=== PATIENT | female | born 1985 | race Caucasian/White ===

== ENCOUNTER 2017-12-31 08:54 | Emergency (ER) | payer MEDICAID ==
[~2017-12-31] VITALS: Ht 165.1 cm; Wt 71.2 kg
[2017-12-31 08:58] VITALS: BP 108/66
[2017-12-31] MEDS ORDERED: CYCL-1 PO (10:12)
== END 2017-12-31 10:45 | disposition home or self-care (01) ==
LOC: ER 08:55
DX: R07.89 Other chest pain (principal); J06.9 Acute upper respiratory infection, unspecified; F17.200 Nicotine dependence, unspecified, uncomplicated
CPT/HCPCS: 71046; 93005; 99284

== ENCOUNTER 2019-11-27 13:09 | Emergency (ER) | payer MEDICAID ==
[~2019-11-27] VITALS: Ht 165.1 cm; Wt 74.5 kg
[~2019-11-27 13:09] MED LIST: CYCL-1 PO
[2019-11-27 13:18] VITALS: BP 120/80
[2019-11-27 14:49] LABS: CLARITY,URINE TURBID (Clear); COLOR,URINE STRAW (Yellow); GLUCOSE, URINE NEGATIVE (Neg); KETONES,URINE NEGATIVE (Neg); LEUKOCYTE ESTERASE ,URINE TRACE (Neg); NITRITES, URINE NEGATIVE (Neg); OCCULT BLOOD,URINE NEGATIVE (Neg); PROTEIN,URINE NEGATIVE (Neg); UROBILINOGEN,URINE 0.2 E.U/dL (0.2-1.0)
[2019-11-27 14:51] LABS: UA COLLECTION TYPE CLN CATCH MIDSTREAM
[2019-11-27 14:55] LABS: BASOPHILS # (AUTO) 0.1 X10'3 (0-0.2); BASOPHILS % (AUTO) 0.8 % (0-1); EOSINOPHILS # (AUTO) 0.1 X10'3 (0-0.9); EOSINOPHILS % (AUTO) 1.4 % (0-6); HEMATOCRIT 40.3 % (35.0-45.0); HEMOGLOBIN 13.5 g/dl (12.0-16.0); LYMPHOCYTES # (AUTO) 2.4 X10'3 (1.1-4.8); LYMPHOCYTES % (AUTO) 28.2 % (21-51); MEAN CORPUSCULAR HEMOGLOBIN 29.1 PG (27.0-31.0); MEAN CORPUSCULAR HGB CONC 33.5 g/dL (33.0-36.5); MEAN CORPUSCULAR VOLUME 86.9 FL (78-98); MEAN PLATELET VOLUME 9.6 FL (7.4-10.4); MONOCYTES # (AUTO) 0.6 X10'3 (0-0.9); MONOCYTES % (AUTO) 6.8 % (2-12); NEUTROPHILS # (AUTO) 5.2 X10'3 (1.8-7.7); NEUTROPHILS % (AUTO) 62.8 % (42-75); PLATELET COUNT 273 X10'3 (140-440); RED BLOOD COUNT 4.64 X10'6 (4.20-5.60); RED CELL DISTRIBUTION WIDTH 13.5 % (11.5-14.5); WHITE BLOOD COUNT 8.3 X10'3 (4.5-11.0)
[2019-11-27 14:58] LABS: AMORPHOUS PHOSPHATES 4+; SQUAMOUS EPITHELIAL CELL,UR MANY /LPF (FEW)
[2019-11-27 14:59] LABS: MUCUS STRANDS MANY /LPF (Neg)
[2019-11-27 15:02] LABS: BACTERIA,URINE 1+ /HPF (Neg); RBC,URINE 0-2 /HPF (0-2); WBC,URINE 0-4 /HPF (0-4)
[2019-11-27 15:05] LABS: ALANINE AMINOTRANSFERASE 15 U/L (12-78); ALBUMIN 3.7 G/DL (3.4-5.0); ALBUMIN/GLOBULIN RATIO 1.2 (1.1-1.5); ALKALINE PHOSPHATASE 43 IU/L (46-116); ANION GAP 7 (8-16); ASPARTATE AMINO TRANSFERASE 13 U/L (10-37); BILIRUBIN,TOTAL 0.3 MG/DL (0.1-1.0); BLOOD UREA NITROGEN 9 MG/DL (7-18); CALCIUM 9.2 MG/DL (8.5-10.1); CHLORIDE 108 MMOL/L (99-107); CREATININE 0.75 MG/DL (0.40-0.90); GLUCOSE 92 MG/DL (70-104); POTASSIUM 3.8 MMOL/L (3.5-5.1); SODIUM 144 MMOL/L (135-145); TOTAL CARBON DIOXIDE 28.6 MMOL/L (24-32); TOTAL PROTEIN 6.7 G/DL (6.4-8.2); eGFR 88 ML/MIN
== END 2019-11-27 17:13 | disposition home or self-care (01) ==
LOC: ER 13:09
DX: M54.16 Radiculopathy, lumbar region (principal); M54.40 Lumbago with sciatica, unspecified side; F17.200 Nicotine dependence, unspecified, uncomplicated; F12.90 Cannabis use, unspecified, uncomplicated; Z79.899 Other long term (current) drug therapy
CPT/HCPCS: 36415; 72148; 80053; 81001; 85025; 99284

== ENCOUNTER 2025-05-24 10:47 | Inpatient (IN) | payer BC ==
[~2025-05-24] VITALS: Ht 165.1 cm; Wt 79.5 kg
[2025-05-24] VITALS (19 sets, daily range): BP systolic 93–120; BP diastolic 54–82; PULSE 69–118; RESP 11–21; O2SAT 95–98
[~2025-05-24 10:47] MED LIST changes: +ASPI-1071 PO; +ATOR20TA66 PO; -CYCL-1 PO; +EMPA10TA PO; +FURO-150 PO; +METO-395 PO; +MULT-1085 PO; +POTA-206 PO; +SACU1TAB PO
--- NOTE | 2025-05-24 11:16 | ELECTROCARDIOGRAPH REPORT ---
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
[2025-05-24 11:31] LABS: APTT 22 SECONDS (22-32); INR 1.1 INR
--- NOTE | 2025-05-24 11:31 | RADIOLOGY REPORT ---
EXAM: CT CT STROKE ALERT INDICATION: Stroke Alert TECHNIQUE: CT of the head without intravenous contrast. Coronal and sagittal reformatted images are s ubmitted. Radiation Dose : 1. Head: CT Dose: CTDI volume is 57.5 mGy. Dose-length product is 1024.4 mGy*cm The dose indicators for CT are the volume Computed Tomography (CT) Dose Index (CTDIvol) and the Dose Length Product (DLP), and are measured in units of mGy and mGy-cm, respectively. These indicators are not patient dose, but values generated from the CT scanner acquisition factors. The report includes radiation exposure data for exposures received during this examination. All CT scans at this medical facility are performed using dose modulation techniques as appropriate to a performed exam including the following: Automated exposure control was utilized; adjustment of the MA and/or KV according to patient size; and use of iterative reconstruction technique. COMPARISON: None FINDINGS: There is no evidence of acute intracranial hemorrhage, extra-axial collection, mass effect, midline s hift, herniation or hydrocephalus. The ventricles, sulci and cisterns are age appropriate. The toledo-white differentiation is intact. The visualized paranasal sinuses and mastoid air cells are clear. No depressed calvarial fracture. The surrounding soft tissues are unremarkable. IMPRESSION: 1. No acute intracranial abnormality.
[2025-05-24 11:32] LABS: MEAN PLATELET VOLUME 10.5 FL (7.4-10.4); RED CELL DISTRIBUTION WIDTH 13.8 % (11.5-14.5)
--- NOTE | 2025-05-24 11:38 | RADIOLOGY REPORT ---
EXAM: DI CHEST,SINGLE VIEW HISTORY: Stroke Alert COMPARISON: DI CHEST,SINGLE VIEW on DOS: 05/21/25 TECHNIQUE: Portable AP view of the chest was performed. FINDINGS: No pneumothorax, consolidative infiltrates, or pulmonary edema. The heart is enlarged. IMPRESSION: Cardiomegaly without evidence of acute intrathoracic process.
[2025-05-24 11:50] LABS: CREATININE 1.11 MG/DL (0.40-0.90); TOTAL CARBON DIOXIDE 24.0 MMOL/L (24-32); eCRCL 61 ML/MIN; eGFR 54 ML/MIN
[2025-05-24 11:51] LABS: LEUKOCYTE ESTERASE ,URINE TRACE (Neg); NITRITES, URINE NEGATIVE (Neg); OCCULT BLOOD,URINE NEGATIVE (Neg)
[2025-05-24 11:53] LABS: UA COLLECTION TYPE CLN CATCH MIDSTREAM
--- NOTE | 2025-05-24 11:59 | RADIOLOGY REPORT ---
CT CTA NECK/HEAD INDICATION: Stroke Alert EXAM DATE: 05/24/2025 11:03 AM COMPARISON: None RADIATION DOSE: CTDIvol: 14 mGy, DLP: 565 mGy*cm PROCEDURE: CT angiogram images were obtained of the head and neck. Coronal and sagittal reformatted i mages were created as well as 3D and/or MIP reconstructions. All CT scans at this medical facility are performed using dose modulation techniques as appropriate t o a performed exam including the following: Automated exposure control was utilized; adjustment of th e MA and/or KV according to patient size; and use of iterative reconstruction technique. FINDINGS: Head: Please see CT head from same day for further details. On the CT angiographic images, the internal carotid arteries are normal in caliber from the skull bas e to their bifurcations. The anterior and middle cerebral arteries and their branches appear normal. The anterior communicating artery appears normal. The bilateral posterior communicating arteries are normal. The left vertebral artery is dominant. The vertebral, basilar, superior cerebellar, and poste rior cerebral arteries are normal in caliber. No aneurysm, arteriovenous malformation, or stenosis is visible. Neck: The common carotid, internal carotid, external carotid, and vertebral arteries are normal in caliber. The left vertebral artery is dominant. The visualized intracranial arteries are normal. There is no evidence of contrast extravasation, filling defects, stenosis, or dissection. The pharynx and airway are normal. The thyroid, submandibular, and parotid glands appear normal. No l ymphadenopathy is seen. The visualized intracranial structures are unremarkable. IMPRESSION: No acute abnormal CT angiographic findings of the head and neck without large vessel occlusion or dis section.
--- NOTE | 2025-05-24 12:00 | Physician Documentation ---
History of Present Illness General Chief Complaint: Stroke Alert Stated Complaint: SLURRED SPEACH Time Seen by MD: 10:55 Primary Medical Doctor: Nilsa Hurt Mode of Arrival: Ambulatory History of Present Illness Initial Comments The patient is a 39-year-old female who began having trouble finding words about a 1/2 hour before she got here. She was discharged from this hospital yesterday after a cardiac workup and was started on several new medications (no blood thinners other than aspirin). She has no history of stroke. Medication Reconciliation Allergies: Coded Allergies: No Known Allergies (Unverified , 05/21/25) Scheduled Aspirin (Ecotrin*), 1 TAB PO DAILY Atorvastatin Calcium (Atorvastatin Calcium), 40 MG PO HS Empagliflozin (Jardiance), 10 MG PO DAILY Furosemide* (Lasix*), 1 TAB PO DAILY Metoprolol Succinate (Metoprolol Succinate), 25 MG PO DAILY Multivitamin (Multi Vitamin Daily), 1 TAB PO DAILY, (Reported) Potassium Chloride (K-Dur), 1 TAB PO DAILY Sacubitril/Valsartan (Entresto 24 mg-26 mg Tablet), 1 TABLET PO BID Discontinued Medications Cider Vinegar (Apple Cider Vinegar), 2 TAB PO DAILY, (Reported) Discontinued Reason: patient no longer taking Fluoxetine Hcl (Fluoxetine Hcl), 1 CAP PO DAILY, (Reported) Discontinued Reason: patient no longer taking Past Medical History Past Medical History: No Pertinent History Drug Use: marijuana Review of Systems ROS Constitutional: Denies chills, fatigue, fever, weight gain or weight loss. HEENT: Denies hearing loss, sinus pressure or visual changes. Respiratory: Denies cough, shortness of breath or wheezing. Cardiovascular: Denies chest pain, pain while walking (claudication), edema or palpitations. Gastrointestinal: Denies abdominal pain, blood in stool, constipation, diarrhea, heartburn, loss of appetite, nausea or vomiting. Genitourinary: Denies painful urination (dysuria), excessive amount of urine (polyuria) or urinary frequency. Metabolic/Endocrine: Denies cold intolerance, heat intolerance, excessive thirst (polydipsia) or excessive hunger (polyphagia). Neurological: Difficulty finding words and completing sentences. Some facial numbness but no droop. Psychiatric: Denies anxiety or depression. Integumentary: Denies breast discharge, breast lump, hives, mole change(s), rash or skin lesion. Musculoskeletal: Denies back pain, joint pain, joint swelling or neck pain. Hematologic: Denies easily bleeding, easily bruises, lymphedema or issues with blood clots. Immunologic: Denies food allergies or seasonal allergies. Physical Exam Physical Exam Vital Signs: Temperature: 98.5, Source: Oral, Heart Rate: 125, Respiratory Rate: 18, BP: 127/74, Pulse Oximetry: 97, Weight: 79.500 Oxygen Flow Rate: 0 Physical Exam Physical Exam Vitals and nursing note reviewed. Constitutional: General: Patient is awake, alert, oriented x 4 in no acute distress and well appearing. Speech is clear and lucid. Appearance: Normal appearance. Patient is not ill-appearing, toxic-appearing or diaphoretic. HENT: Head: Normocephalic and atraumatic. Mouth/Throat: Mouth: Mucous membranes are moist. Pharynx: Oropharynx is clear. Eyes: General: No scleral icterus. Extraocular Movements: Extraocular movements intact. Pupils: Pupils are equal, round, and reactive to light. Neck: Supple, no Kernig or Brudzinski sign. Cardiovascular: Rate and Rhythm: Normal rate and regular rhythm. Heart sounds: No murmur heard. Pulmonary: Effort: No respiratory distress. Breath sounds: No wheezing, rhonchi or rales. Abdominal: General: There is no distension. Palpations: There is no fluid wave, hepatomegaly or mass. Tenderness: There is no abdominal tenderness. There is no guarding. Musculoskeletal: General: No swelling or deformity. Skin: Coloration: Skin is not jaundiced. Findings: No erythema or rash. Neurological: Mental Status: Patient is alert. GCS 15. Patient having difficulty finding words (expressive aphasia). There maybe some weakness of the right leg. Progress Results/Orders Results/Orders Orders - FRANDY MURPHY MD Monitor (05/24/25 10:53) 2 Large Bore Ivs (05/24/25 10:53) Chest,Single View (05/24/25 11:23) Accucheck (05/24/25 10:53) Ct Stroke Alert (05/24/25 10:53) [place] Prov.Neuro Consult (05/24/25 10:53) Cta Neck/Head (05/24/25 10:53) Cult Urine + [place] Ct (05/24/25 12:20) Completed Orders - FRANDY MURPHY MD Cbc/Diff (05/24/25 10:53) Electrocardiogram (05/24/25 10:53) Chest,Single View (05/24/25 11:23) Ct Stroke Alert (05/24/25 10:53) PTT (05/24/25 10:53) Pt Inr (05/24/25 10:53) Cta Neck/Head (05/24/25 10:53) Iohexol 350mg/Ml 100ml (Omnipaque 350mg/ (05/24/25 10:59) BMP (05/24/25 11:29) Ua W/Microscopic, Cult If Ind (05/24/25 11:23) Tenecteplase-Tnkase Inj (Tnkase Inj) (05/24/25 12:00) Vital Signs 05/24/25 05/24/25 05/24/25 05/24/25 10:49 11:00 11:00 11:15 Temp 98.2 Pulse 131 120 120 125 Resp 16 16 16 18 B/P (MAP) 110/88 133/72 (92) 133/72 116/86 (96) Pulse Ox 95 98 98 98 O2 Flow Rate 0 0 0 05/24/25 05/24/25 05/24/25 05/24/25 11:16 11:30 11:38 11:45 Pulse 125 122 125 128 Resp 18 16 18 18 B/P (MAP) 116/86 127/74 (91) 127/74 133/72 (92) Pulse Ox 96 96 97 97 O2 Flow Rate 0 0 05/24/25 05/24/25 05/24/25 05/24/25 12:00 12:00 12:15 12:30 Pulse 124 112 110 105 Resp 18 16 16 16 B/P (MAP) 119/86 (97) 119/86 99/62 (74) 98/74 (82) Pulse Ox 96 97 98 96 O2 Flow Rate 0 0 0 Laboratory Tests Test 05/24/25 11:07 05/24/25 11:17 05/24/25 11:18 05/24/25 11:23 Prothrombin Time 11.4 INR International Normalized Ratio 1.1 Activated Partial Thromboplast Time 22 Coagulation Comments Chemistry Comments Glucometer 154 H White Blood Count 13.1 H Red Blood Count 5.43 Hemoglobin 15.4 Hematocrit 45.3 H Mean Corpuscular Volume 83.5 Mean Corpuscular Hemoglobin 28.5 Mean Corpuscular Hemoglobin Concent 34.1 Red Cell Distribution Width 13.8 Platelet Count 264 Mean Platelet Volume 10.5 H Neutrophils (%) (Auto) 73.1 Lymphocytes (%) (Auto) 18.3 L Monocytes (%) (Auto) 7.4 Eosinophils (%) (Auto) 0.8 Basophils (%) (Auto) 0.4 Neutrophils # (Auto) 9.6 H Lymphocytes # (Auto) 2.4 Monocytes # (Auto) 1.0 H Eosinophils # (Auto) 0.1 Basophils # (Auto) 0.1 CBC Comment Sodium Level 133 L Potassium Level 3.0 *L Chloride Level 98 L Carbon Dioxide Level 24.0 Anion Gap 11 Blood Urea Nitrogen 28 H Creatinine 1.11 H Estimated GFR/1.73 m2 54 BUN/Creatinine Ratio 25.2 H Glucose Level 145 H Calcium Level 8.7 Albumin 4.0 Urine Specimen Description Cln catch midstream Urine Color Straw Urine Clarity Slightly cloudy Urine pH 6.0 Urine Specific [place] <=1.005 Urine Protein Negative Urine Glucose (UA) >=1000 H Urine Ketones Negative Urine Occult Blood Negative Urine Nitrite Negative Urine Bilirubin Negative Urine Urobilinogen 0.2 Urine Leukocyte Esterase Trace H Urine RBC 3-10 Urine WBC 0-4 Urine Squamous Epithelial Cells Moderate Urine Renal Cells Few Urine Bacteria Few Urine Mucus Few Urine Culture Indicated Indicated Volume Urine Centrifuged 10 ml Urine Comment Microbiology Date/Time Source Procedure Growth Status 05/24/25 12:20 Urine Clean Catch Midstream Urine Culture - Preliminary Culture received. Resulted Medical Decision Making Findings Our tele stroke doctor phoned me and recommended thrombolytic therapy. She discussed this option with the patient. When I went in and talked with the patient she agreed to treatment with thrombolytics (TNK). 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 I provided critical care services which included medication orders, frequent re-evaluations, response to treatment, renewing test results, and discussing case with various consultants. Unless specifically stated all procedures, tests, and medications were performed/interpreted under the direct supervision of the emergency department physician. Signature Scribe Signature: . Attestation: FRANDY MCCOY MD May 24, 2025 12:00
[2025-05-24] MEDS: tenecteplase 50mg kit IV ONE (12:02)
[2025-05-24 12:08] LABS: MUCUS STRANDS FEW /LPF (Neg); SQUAMOUS EPITHELIAL CELL,UR MODERATE /LPF (FEW)
[2025-05-24 12:12] LABS: RENAL CELLS, URINE FEW /HPF
[2025-05-24] MEDS ORDERED: ondansetron/PF 4mg/2ml inj IV PRN (12:45)
[2025-05-24] MEDS ORDERED: morphine 4 MG/ML inj SYRINge IV PRN (12:45)
[2025-05-24] MEDS ORDERED: magnesium hydroxide 30ml (MOM) UD suspension PO PRN (12:45)
[2025-05-24] MEDS: normal saline 1000ml 1,000 ML IV SCH (12:54)
--- NOTE | 2025-05-24 13:11 | [facility] CONSULT REPORT ---
[facility] Procedure Note [facility] Procedure Note Consult [facility] Note # Demographics Consult Type: Acute Stroke Level 1 (0-4.5 hrs) Patient Location: Emergency Room First Name: Jordyn Last Name: Jason Date of : 1985 Age: 39 Gender: Female Facility: [facility] Time of Initial Page (): 05/24/2025 11:15 First Contact with Site (): 05/24/2025 11:17 # HPI History: 39y F who was discharged from the facility yesterday after being admitted and found to have low EF no presenting with trouble getting her words out and on my exam had started having R sided weakness Last Known Normal: 1030 Possible Thrombolytic candidate: - no stroke in last 3 months - no known blood disorders - not on warfarin or NOACs - no recent major surgery - no known active major internal bleeding - no intracranial hemorrhage history # Scores Time of exam and NIHSS (): 05/24/2025 11:31 Level of Consciousness 1a: [0] = Alert; keenly responsive LOC Questions 1b: [0] = Answers both questions correctly LOC Commands 1c: [0] = Performs both tasks correctly Best Gaze 2: [0] = Normal Visual 3: [0] = No visual loss Facial Palsy 4: [0] = Normal symmetrical movements Motor Arm Left 5a: [0] = No drift Motor Arm Right 5b: [1] = Drift Motor Leg Left 6a: [0] = No drift Motor Leg Right 6b: [2] = Some effort against gravity Limb Ataxia 7: [0] = Absent Sensory 8: [0] = Normal Best Language 9: [1] = Tbin-sh-briemnxr aphasia Dysarthria 10: [1] = Gxna-ny-gaeziivj dysarthria Extinction and Inattention 11: [0] = No abnormality NIHSS Total: 5 # Exam Vitals: vital signs reviewed # Data Time Head CT personally read by me (): 05/24/2025 11:[address]: - no bleed Time CTA personally reviewed by me (): 05/24/2025 11:32 CTA Head: no large vessel occlusion CTA Neck: patent vessels # Assessment Impression: - Ischemic Stroke (Acute) # Plan Thrombolytic/Intervention: IV Thrombolysis Thrombolytic Dosing: IV tenecteplase 0.25 mg/kg, max dose 25 mg; single bolus IVP over 5 seconds Intraarterial Exclusion: - no large vessel occlusion (LVO) - clinical exam not consistent with presence of large vessel occlusion (LVO), can reconsider if LVO found on vascular imaging Time IV Thrombolytic Recommended ([place] Time): 05/24/2025 11:40 Modified Davie Scale (mRS) pre-stroke: [1] = No significant disability despite symptoms; able to carry out all usual duties and activities. Blood Pressure Management: - nicardipine - labetalol Labs: - hemoglobin A1c - lipid panel - TSH Imaging: (urgency: routine): - MRI Brain without contrast Diagnostic Test: - echo with bubble study Therapy/Evaluation: - NPO until swallow evaluation - PT/OT evaluation - speech/swallow consultation Medication: - start statin with goal of LDL < 70 DVT Prophylaxis: - SCD Thrombolytic Administration Recommendations: - I reviewed the risks/benefits/alternatives of IV thrombolytic therapy with the patient. They understand there is potential of life threatening hemorrhage from IV thrombolysis. I stated that I believe benefits outweighs risk. They wish to proceed with IV thrombolytic therapy. - BP goal< 180/105 for 24hrs post Thrombolytic administration - Use Labetalol 10-20mg IV prn or Nicardipine gtt to maintain BP parameters - No antiplatelets or anticoagulants for next 24 hrs unless indicated for emergent IA procedure or other life threatening situation - ICU admission - Call back if there is any decline in neurological condition Other: - If patient has any neurological deterioration please call me back immediately - telemetry monitoring - I have discussed my recommendations with the referring provider - will need event monitor or loop recorder as outpatient if atrial fibrillation not found as inpatient # Logistics Attestation of consult completion: The patient is located at: [facility]. Facility staff participated in the visit. I performed this telemedicine visit from my offsite office utilizing interactive 2 way audio and visual telecommunication technology at the request of the onsite emergency room provider. Consent: Verbal consent was obtained from the patient and/or family for this encounter. Total time spent in telemedicine encounter: I spent 35 minutes reviewing clinical data and/or imaging, obtaining history, examining the patient, communicating with the onsite care team, and in preparation of this report. Critical Care time: 35 minutes of this encounter were critical care time. Due to a high probability of clinically significant, life-threatening neurologic deterioration, the patient required my highest level of preparedness to inte rvene emergently. I spent this critical care time managing the patient in conjunction with on-site providers who requested my consultation. In addition to the above, this critical care time included recommendation and review of studies, including imaging; arranging an urgent treatment and management plan with on-site providers; evaluation of patient's response to treatment; and doc umentation. This critical care time was performed to assess and manage the high probability of imminent, life-threatening deterioration that could result in neurologic catastrophe. # Demographics First Name: Jordyn Last Name: Jason Facility: [facility] Electronically signed at 05/24/2025 13:10 ([place] Time) by Carolann Sainz DO Neuro Consult Order placed for: Yes CAROLANN SAINZ DO May 24, 2025 13:11
--- NOTE | 2025-05-24 14:06 | HISTORY AND PHYSICAL ---
History of Present Illness End CC ~ Admission Diagnosis:.: CVA History of Present Illness Presented to ER with slurred speech, TNL given as per Neurology recommendation. Recently discharge from hospital due to CHF Allergies: Coded Allergies: No Known Allergies (Unverified , 05/21/25) Home Medications Home Medications Active Jardiance (Empagliflozin) 10 Mg Tablet 10 Mg PO DAILY 30 Days K-Dur (Potassium Chloride) 10 Meq Tab.prt.sr 1 Tab PO DAILY 30 Days Lasix* (Furosemide) 20 Mg Tablet 1 Tab PO DAILY 30 Days Ecotrin* (Aspirin) 81 Mg Tablet.dr 1 Tab PO DAILY 30 Days Entresto 24 mg-26 mg Tablet (Sacubitril/Valsartan) 24 Mg-26 Mg Tablet 1 Tablet PO BID 30 Days Metoprolol Succinate 25 Mg Tab.sr.24h 25 Mg PO DAILY 30 Days Atorvastatin Calcium 20 Mg Tablet 40 Mg PO HS 90 Days Reported Multi Vitamin Daily (Multivitamin) 1 Each Tablet 1 Tab PO DAILY 30 Days Past Medical History Past Medical History: No Pertinent History Past Social History Drug Use: Marijuana Advance Care Planning Advanced Care plannin - 30 Minutes Review of Systems Neurological: Reports: speech problem Physical Exam Last Vital Signs recorded: Temperature: 98.2, Source: Oral, Heart Rate: 98, Respiratory Rate: 18, BP: 99/71, Pulse Oximetry: 98, Weight: 79.500 General Appearance: no apparent distress EENT: PERRL/EOMI Neck: supple Respiratory: lungs clear Cardiovascular: regular rate, rhythm Peripheral Pulses: 1+ carotid (R), 1+ carotid (L), 1+ radial (R), 1+ radial (L), 1+ femoral (R), 1+ femoral (L), 1+ dorsalis pedis (R), 1+ dorsalis pedis (L), 1+ posterior tib (R), 1+ posterior tib (L), 1+ other Gastrointestinal: bowels sounds present Extremities: no edema 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
--- NOTE | 2025-05-24 14:33 | RADIOLOGY REPORT ---
EXAM: CT CT HEAD HISTORY: headache COMPARISON: CT CTA NECK/HEAD on DOS: 05/24/25, CT CT STROKE ALERT on DOS: 05/24/25 TECHNIQUE: Noncontrast axial CT images of the head were performed. Sagittal and coronal reformatted i mages were obtained. This CT exam was performed using 1 or more of the following dose reduction techn iques: Automated exposure control, adjustment of the mA and/or kv according to patient size, or the u se of iterative reconstruction techniques. Radiation Dose: CTDI volume is 8.43 mGy. Dose-length product is 1011.39 mGy*cm FINDINGS: No intracranial hemorrhage, mass, midline shift, hydrocephalus, or evidence of acute large vessel inf arct. 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 The partially-visualized paranasal sinuses are zen ar. The bilateral mastoid air cells and middle ear spaces are clear. No cranial fracture or scalp breanna ma. IMPRESSION: No acute intracranial process.
--- NOTE | 2025-05-24 16:38 | ELECTROCARDIOGRAPH REPORT ---
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
[2025-05-24] MEDS ORDERED: potassium Cl 40MEQ/1/2NS 520ml 520 ML IV PRN (19:35)
[2025-05-24] MEDS ORDERED: magnesium sulf-water 2g/50mL 50 ML IV PRN (19:35)
[2025-05-24] MEDS ORDERED: magnesium sulf-water 4G/100mL 100 ML IV PRN (19:35)
[2025-05-24] MEDS ORDERED: potassium Cl 20 mEq SR tablet PO PRN (19:35)
[2025-05-24] MEDS: potassium Cl 20 mEq SR tablet PO PRN (20:02)
[2025-05-25] VITALS (17 sets, daily range): BP systolic 84–138; BP diastolic 54–79; PULSE 58–109; RESP 13–18; TEMP 97.9–98.5; O2SAT 87–97
[2025-05-25 04:24] LABS: CREATININE 0.68 MG/DL (0.40-0.90); PHOSPHORUS 3.9 MG/DL (2.3-4.5); TOTAL CARBON DIOXIDE 24.0 MMOL/L (24-32); eCRCL 99 ML/MIN; eGFR > 90 ML/MIN
--- NOTE | 2025-05-25 06:35 | PROGRESS NOTE ---
Progress Note Dictate Providers to CC ~ Progress Note: No new acute issues overnight Central Line/PICC still needed: N\A [place] Indications Met/Not Met: F/C Indications Met Antibiotic Ordered?: No Subjective Subjective Comfortable Objective Vitals Vital Signs Date Time Temp Pulse Resp B/P (MAP) Pulse Ox O2 Delivery O2 Flow Rate FiO2 05/25/25 06:00 97.3 78 16 100/55 (70) 94 Room Air 05/24/25 15:03 0 Lab Results: 05/24/25 1118 05/25/25 0346 Objective Heart: S1-2reg Lungs: Clear Abd: Soft, non-tender, BS (+) Ext: No edema Neuro: No focal deficits Coagulation Studies Laboratory Tests Test 05/24/25 11:07 Prothrombin Time 11.4 SECONDS (9.0-12.0) INR International Normalized Ratio 1.1 INR Activated Partial Thromboplast Time 22 SECONDS (22-32) Coagulation Comments Problem\Assessment\Plan Additional Plan 1-CVA -Continue dual anti-plts -Await MRI brain 2-Severe Dilated CMP -Optimize cardiac meds A Jeromy Sepsis Screening Reassessment Date: May 25, 2025 TRESA HORVATH MD May 25, 2025 06:35
[2025-05-25] MEDS: K and/or MAG REPLACEMENT MC SCH (08:00)
[2025-05-25] MEDS ORDERED: salt irrigation nasal spray 45 ML SPRAY NS PRN (12:10)
--- NOTE | 2025-05-25 14:46 | RADIOLOGY REPORT ---
[facility] EXAMINATION: MR MRI HEAD INDICATION: post tnk, stroke COMPARISON: CT CT HEAD on DOS: 05/24/25, CT CTA NECK/HEAD on DOS: 05/24/25, CT CT STROKE ALERT on DOS: 05/24/25 TECHNIQUE: Multiplanar, multisequence magnetic resonance imaging of the brain was performed without the use of i ntravenous contrast. FINDINGS: 0.8 x 1.3 x 0.9 cm focus of diffusion restriction of the left mid to low convexity parietal lobe with additional 0.7 x 0.5 x 1 cm focus of diffusion restriction over the left high convexity posterior fr ontal lobe. There is mild associated T2/FLAIR hyperintensity of the areas of diffusion restriction. Normal brain volume and formation. No hemorrhages, masses, mass effect or midline shift . Old left an terior periventricular chronic lacunar infarct. No intra-axial or extra-axial fluid collections. No e vidence of hydrocephalus. The basal cisterns are patent. Vascular flow voids are maintained. The pituitary gland, sella and parasellar regions unremarkable. 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 The orbits and globes unremarkable. The paranasal sinuses and mastoids are clear. There are No worri some calvarial lesions. IMPRESSION: Focus of acute infarct over the left mid to low convexity parietal lobe and left high convexity poste rior frontal lobe. No evidence of acute intracranial hemorrhage. 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 Correlate for P ossible Chiari malformation. Critical Result: Stroke Alert Findings discussed with YAZ Titus at 05/25/2025 02:43 PM, and acknowledged receipt and understanding of the findings. ..
[2025-05-25 15:07] LABS: CHOL/HDL RATIO 5.4 (0.00-4.99); LDL CHOLESTEROL 115 MG/DL (50-100)
--- NOTE | 2025-05-25 19:33 | CONSULTATION REPORT ---
Consult Providers to CC ~ History of Present Illness Reason for Admit\Complaint: Acute CVA status post TNK administration History of Present Illness This is a 39-year-old female who was just discharged from [facility] on May 23 with a new diagnosis of dilated cardiomyopathy with a LVEF of 20% the patient is discharged home with the LifeVest which she states she does not like to wear. The patient then presented back to the ED the following day with weakness in her hands and feet bilaterally and slurred speech and expressive aphasia she arrived in the ED 15 minutes after onset of symptoms. The patient was given TNK and sent to the ICU her symptoms improved within 30 minutes of receiving TN K however she continues to have some numbness in her hands. A CTA of the head was unremarkable however MRI of the brain demonstrates a focus of infarct over the left mid and low convexity of the parietal lobe and left high convexity posterior frontal lobe. The patient also has a 5 mm ectopia of the cerebellar tonsil which is below the plane of the foramen magnum and possibly represents a Chiari malformation. I did inform the patient of this finding and that she would need in the future serial MRIs of the brain Allergies: Coded Allergies: No Known Allergies (Unverified , 05/21/25) Home Medications Home Medications Active Jardiance (Empagliflozin) 10 Mg Tablet 10 Mg PO DAILY 30 Days K-Dur (Potassium Chloride) 10 Meq Tab.prt.sr 1 Tab PO DAILY 30 Days Lasix* (Furosemide) 20 Mg Tablet 1 Tab PO DAILY 30 Days Ecotrin* (Aspirin) 81 Mg Tablet.dr 1 Tab PO DAILY 30 Days Entresto 24 mg-26 mg Tablet (Sacubitril/Valsartan) 24 Mg-26 Mg Tablet 1 Tablet PO BID 30 Days Metoprolol Succinate 25 Mg Tab.sr.24h 25 Mg PO DAILY 30 Days Atorvastatin Calcium 20 Mg Tablet 40 Mg PO HS 90 Days Reported Multi Vitamin Daily (Multivitamin) 1 Each Tablet 1 Tab PO DAILY 30 Days Past Medical History Past Medical History Dilated cardiomyopathy with an LVEF of 20%, Past Surgical History Surgical History Comment Tonsillectomy Family History Family History: Cardiomyopathy Paternal grandfather FH: CVA (cerebrovascular accident) Maternal grandmother Paternal grandmother (x 3) FH: colon cancer Maternal grandmother FH: hypertension Paternal grandmother Past Social History Social History Comment Smokes half a pack of cigarettes a day, drinks alcohol one time a year, smokes cannabis, used MDMA in her teenage years for at most 10 times, denies any other illicit drug use. Full code status ROS ROS Except for positives in the HPI the rest of the 14 point review systems is negative Exam Vitals: Vital Signs Date Time Temp Pulse Resp B/P (MAP) Pulse Ox O2 Delivery O2 Flow Rate FiO2 05/25/25 18:30 86 05/25/25 14:20 Room Air 0.0 05/25/25 13:55 98.5 16 138/79 (98) 96 General: Gen. No acute distress alert and oriented 4 Lungs clear to ascultation bilaterally, no wheezes rales or rhonchi appreciated Heart normal sinus rhythm no murmurs rubs or clicks noted Abdomen soft nontender bowel sounds are normoactive Lower extremities no clubbing cyanosis, nor edema appreciated bilaterally Diagnostic Data Last Recorded Lab Results: 05/24/25 1118 05/25/25 0346 Diagnostic Data: Laboratory Tests Test 05/24/25 11:07 Prothrombin Time 11.4 SECONDS (9.0-12.0) INR International Normalized Ratio 1.1 INR Activated Partial Thromboplast Time 22 SECONDS (22-32) Coagulation Comments Problems: (1) Cerebrovascular accident Status: Acute Additional Plan # acute cerebrovascular accident-thrombotic not hemorrhagic Status post TNK administration with near resolution of symptoms MRI demonstrates the following findings: a focus of infarct over the left mid and low convexity of the parietal lobe and left high convexity posterior frontal lobe. 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 The expense of smoking cigarettes and how cigarettes have been scientifically engineered to be as addictive as humanly possible. The patient has not smokes in the past three days in appears determine to quit however does not want a nicotine patch. I spent a total of 17 minutes on reviewing various resuscitative measures/ ACP with the patient at the time of admission. The patient has decided on full code status Date of Service: May 25, 2025 Billing Provider: CHAITANYA SCHAFFER DO Common Visit Codes: 46924-PRNCHVS INP/OBS CARE (HIGH) Secondary Visit Codes: 77944-RMDVO CHNG SMOKING >10MIN, 16880-OQCOHTLO CARE PLAN 30 MINUTES CHAITANYA SCHAFFER DO May 25, 2025 19:33
[2025-05-25] MEDS: sacubitril/valsartan 24mg-26mg tablet PO SCH (20:03)
--- NOTE | 2025-05-25 21:40 | CONSULTATION REPORT ---
History of Present Illness Providers to CC ~ Reason for Admit\\Admit Dx: Acute CVA status post TNK administration Refering MD: Nilsa Hurt Allergies: Coded Allergies: No Known Allergies (Unverified , 05/21/25) Home Medications Home Medications Active Jardiance (Empagliflozin) 10 Mg Tablet 10 Mg PO DAILY 30 Days K-Dur (Potassium Chloride) 10 Meq Tab.prt.sr 1 Tab PO DAILY 30 Days Lasix* (Furosemide) 20 Mg Tablet 1 Tab PO DAILY 30 Days Ecotrin* (Aspirin) 81 Mg Tablet.dr 1 Tab PO DAILY 30 Days Entresto 24 mg-26 mg Tablet (Sacubitril/Valsartan) 24 Mg-26 Mg Tablet 1 Tablet PO BID 30 Days Metoprolol Succinate 25 Mg Tab.sr.24h 25 Mg PO DAILY 30 Days Atorvastatin Calcium 20 Mg Tablet 40 Mg PO HS 90 Days Reported Multi Vitamin Daily (Multivitamin) 1 Each Tablet 1 Tab PO DAILY 30 Days Past Family History Family History: Cardiomyopathy Paternal grandfather FH: CVA (cerebrovascular accident) Maternal grandmother Paternal grandmother (x 3) FH: colon cancer Maternal grandmother FH: hypertension Paternal grandmother Physical Exam Last Vital Signs Recorded: Temperature: 97.9, Source: Oral, Heart Rate: 95, Respiratory Rate: 16, BP: 117/77, Pulse Oximetry: 95, Weight: 79.500 General Appearance: no apparent distress EENT: PERRL/EOMI Neck: supple Respiratory: lungs clear Cardiovascular: regular rate, rhythm Peripheral Pulses: 1+ carotid (R), 1+ carotid (L), 1+ radial (R), 1+ radial (L), 1+ femoral (R), 1+ femoral (L), 1+ dorsalis pedis (R), 1+ dorsalis pedis (L), 1+ posterior tib (R), 1+ posterior tib (L), 1+ other Gastrointestinal: bowels sounds present Extremities: no edema 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 Today she feels "a million times better." Only lingering symptom is numbness in the right hand. Symptoms seemed to resolve within one hour of getting the TNK. No similar symptoms previously. Does have known recent diagnosis of heart failure (EF 20%). She does not know yet the reason for the heart failure. No issues with bleeding. # Scores Time of exam and NIHSS ([facility]): 05/25/2025 21:04 Level of Consciousness 1a: [0] = Alert; keenly responsive LOC Questions 1b: [0] = Answers both questions correctly LOC Commands 1c: [0] = Performs both tasks correctly Best Gaze 2: [0] = Normal Visual 3: [0] = No visual loss Facial Palsy 4: [0] = Normal symmetrical movements Motor Arm Left 5a: [0] = No drift Motor Arm Right 5b: [0] = No drift Motor Leg Left 6a: [0] = No drift Motor Leg Right 6b: [0] = No drift Limb Ataxia 7: [0] = Absent Sensory 8: [1] = Djlw-gy-ravovywb sensory loss Best Language 9: [0] = No aphasia Dysarthria 10: [0] = Normal Extinction and Inattention 11: [0] = No abnormality NIHSS Total: 1 # Exam Sensory: reduced sensation in the right hand relative to the left. # Data Other Labs: LDL 115 CTA Head: - no large vessel occlusion - per radiologist read CTA Neck: - patent vessels - per radiologist read MRI: - acute ischemia - per radiologist read small areas of left frontal and left parietal cortex. No hemorrhage Other Imaging: Recent ECHO with EF 20% (per patient and other provider notes) # Assessment Impression: - Ischemic Stroke (Acute) # Plan Target Blood Pressure: SBP < 180 Therapy/Evaluation: - PT/OT evaluation - speech/swallow consultation Medication: - start statin with goal of LDL < 70 Other: - If patient has any neurological deterioration please call me back immediately - permissive hypertension - telemetry monitoring Additional Recommendations: Guidelines are currently unsettled on secondary stroke prevention in the setting of likely embolic stroke (though completed areas of stroke are small) and severely reduced EF. I tend to favor full anticoagulation with such severely reduced ejection fraction, though dual antiplatelet therapy is a reasonable alternative. A trans-esophageal ECHO would be necessary to exclude residual cardiac thrombus if planning dual antiplatelet instead of anticoagulation. The size of the stroke injury is small enough that anticoagulation could be started today. # Logistics Attestation of consult completion: The patient is located at: [facility]. Facility staff participated in the visit. I performed this telemedicine visit from my offsite office utilizing interactive 2 way audio and visual telecommunication technology at the request of the onsite inpatient provider. Total time spent in telemedicine encounter: I spent 30 minutes reviewing clinical data and/or imaging, obtaining history, examining the patient, communicating with the onsite care team, and in preparation of this report. # Demographics First Name: DIANE Last Name: AMY Facility: [facility] ZELALEM DUARTE MD May 25, 2025 21:40
[2025-05-26 02:00] VITALS: BP 100/58; PULSE 70; RESP 18; TEMP 98.1; O2SAT 98
[2025-05-26 05:56] LABS: CREATININE 0.70 MG/DL (0.40-0.90); PHOSPHORUS 3.9 MG/DL (2.3-4.5); TOTAL CARBON DIOXIDE 26.7 MMOL/L (24-32); eCRCL 96 ML/MIN; eGFR > 90 ML/MIN
[2025-05-26 06:00] VITALS: BP 93/66; PULSE 81; RESP 14; TEMP 97.9; O2SAT 97
[2025-05-26 08:07] LABS: MEAN PLATELET VOLUME 11.2 FL (7.4-10.4); RED CELL DISTRIBUTION WIDTH 14.2 % (11.5-14.5)
[2025-05-26] MEDS: aspirin 81mg, enteric-coated 1 TAB TABLET.DR PO SCH (08:17)
[2025-05-26] MEDS: EMPAGLIFLOZIN 10 MG TABLET PO SCH (08:18)
[2025-05-26] MEDS: potassium Cl 20 mEq SR tablet PO SCH (08:18)
[2025-05-26] MEDS: multivitamins, therapeutics tablet PO SCH (08:18)
[2025-05-26] MEDS: metoprolol succinate 25mg (24-HOUR) SR. Tablet PO SCH (08:19)
[2025-05-26 08:37] LABS: PLATELET ESTIMATE NORMAL
[2025-05-26 08:38] LABS: LARGE PLATELETS MODERATE
[2025-05-26] MEDS: nicotine 14mg patch - 24hr TD ONE (09:58)
[2025-05-26 10:00] VITALS: BP 104/64; PULSE 83; RESP 15; TEMP 99; O2SAT 99
[2025-05-26] MEDS ORDERED: HYDR-3686 PO (11:35)
[2025-05-26] MEDS ORDERED: APIX5TAB3 PO (11:35)
--- NOTE | 2025-05-26 21:28 | DISCHARGE SUMMARY ---
Discharge Summary Providers to CC ~ Discharge Summary Admission Diagnosis: CVA Hospital Course DATE OF ADMISSION: 05/24/2025 DATE OF DISCHARGE: 05/26/2025 Discharge Diagnosis\\Comment: Acute CVA thrombotic not hemorrhagic, 5 mm ectopy of the cerebellar tonsil, severely dilated cardiomyopathy, tobacco use disorder Operations\\Procedures: None Consultants: Hospitalist service Telemedicine neurology Dr. Yohan Carroll and Dr Christopher Complications: None Condition on DC: Stable New Medications: Hydroxyzine Hcl (Atarax) 25 Mg Tablet 1 TAB PO Q6H PRN for anxiety for 10 Days, #60 TAB 0 Refills Apixaban (Eliquis) 5 Mg Tablet 5 MG PO BID, #60 TAB Continued Medications: Aspirin (Ecotrin*) 81 Mg Tablet.dr 1 TAB PO DAILY for 30 Days, #30 TAB.SR Atorvastatin Calcium (Atorvastatin Calcium) 20 Mg Tablet 40 MG PO HS for 90 Days, #90 TAB Empagliflozin (Jardiance) 10 Mg Tablet 10 MG PO DAILY for 30 Days, #30 TAB 0 Refills Furosemide* (Lasix*) 20 Mg Tablet 1 TAB PO DAILY for 30 Days, #30 TAB Metoprolol Succinate (Metoprolol Succinate) 25 Mg Tab.sr.24h 25 MG PO DAILY for 30 Days, #30 TAB.SR Multivitamin (Multi Vitamin Daily) 1 Each Tablet 1 TAB PO DAILY for 30 Days, #30 TAB 0 Refills Potassium Chloride (K-Dur) 10 Meq Tab.prt.sr 1 TAB PO DAILY for 30 Days, #30 TAB 0 Refills Sacubitril/Valsartan (Entresto 24 mg-26 mg Tablet) 24 Mg-26 Mg Tablet 1 TABLET PO BID for 30 Days, #60 TAB Discharge Summary: The patient was admitted by cyber incident responder Dr. Pinzon with the following HPI:"Presented to ER with slurred speech, TNL given as per Neurology recommendation. Recently discharge from hospital due to CHF."I consulted on the patient the following morning of the as the patient was transferred from ICU and obtain the following HPI:This is a 39-year-old female who was just discharged from [facility] on May 23 with a new diagnosis of dilated cardiomyopathy with a LVEF of 20% the patient is discharged home with the LifeVest which she states she does not like to wear. The patient then presented back to the ED the following day with weakness in her hands and feet bilaterally and slurred speech and expressive aphasia she arrived in the ED 15 minutes after onset of symptoms. The patient was given TNK and sent to the ICU her symptoms improved within 30 minutes of receiving TN K however she continues to have some numbness in her hands. A CTA of the head was unremarkable however MRI of the brain demonstrates a focus of infarct over the left mid and low convexity of the parietal lobe and left high convexity posterior frontal lobe. The patient also has a 5 mm ectopia of the cerebellar tonsil which is below the plane of the foramen magnum and possibly represents a Chiari malformation. I did inform the patient of this finding and that she would need in the future serial MRIs of the brain Dr. Yohan Carroll recommended apixaban due to the patient's dilated cardiomyopathy. Thus the patient is started on apixaban and remains on 81 mg aspirin. The patient's hospitalization was otherwise unremarkable the patient though did informed me she had anxiety and had done well before with hydroxyzine and I p rescribed a course of hydroxyzine with the patient and I did discuss starting Zoloft the patient had previously been on Prozac and did well the patient will think about this medication. Gen. No acute distress alert and oriented 4 Lungs clear to ascultation bilaterally, no wheezes rales or rhonchi appreciated Heart normal sinus rhythm no murmurs rubs or clicks noted Abdomen soft nontender bowel sounds are normoactive Lower extremities no clubbing cyanosis, nor edema appreciated bilaterally The patient felt ready to be discharged and was medically cleared to be discharged on 05/26/2025 The patient was seen and evaluated on day of discharge. Time spent on discharge 35 minutes *Problems/Diagnosis: (1) Cerebrovascular accident Status: Acute Total Time Spent on D/C: > 30 Minutes Date of Service: May 26, 2025 Billing Provider: CHAITANYA SCHAFFER DO Common Visit Codes: 16381-OOR/OBS DISCH DAY >30min CHAITANYA SCHAFFER DO May 26, 2025 21:25
== END 2025-05-26 14:14 | disposition home or self-care (01) | DRG 62 ==
LOC: ER 10:47 → ED HOLD 12:44 → CICU 2S 15:10 → ORTHO 4S 05-25 13:00
PROVIDERS: ADMIT Internal Medicine Critical Care Medicine; ATTEND Internal Medicine Critical Care Medicine
DX: I63.9 Cerebral infarction, unspecified (principal); I42.0 Dilated cardiomyopathy; R47.01 Aphasia; F17.210 Nicotine dependence, cigarettes, uncomplicated; F41.9 Anxiety disorder, unspecified; G51.0 Bell's palsy; I50.9 Heart failure, unspecified; Z79.01 Long term (current) use of anticoagulants; Z79.82 Long term (current) use of aspirin; Z79.899 Other long term (current) drug therapy; Z79.84 Long term (current) use of oral hypoglycemic drugs; Z80.0 Family history of malignant neoplasm of digestive organs; Z82.3 Family history of stroke; Z82.49 Family history of ischemic heart disease and other diseases of the circulatory system
CPT/HCPCS: 36415; 70450; 70496; 70498; 70551; 71045; 80048; 80061; 81001; 82948; 83735; 84100; 85008; 85025; 85610; 85730; 87088; 92977; 93005; 97161; 97530; 99291; A6258; G0378; J3101; J7030; Q9967

== ENCOUNTER 2025-06-02 09:52 | Inpatient (IN) | payer BC ==
[~2025-06-02] VITALS: Ht 165.1 cm; Wt 78.2 kg
[~2025-06-02 09:52] MED LIST changes: +APIX5TAB3 PO; +HYDR-3686 PO
--- NOTE | 2025-06-02 10:13 | ELECTROCARDIOGRAPH REPORT ---
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 Eddy Keyes Measurements Intervals [place] Rate: 95 P: 79 [place]: 160 QRS: 101 QRSD: 175 T: -23 QT: 414 QTc: 521 Interpretive Statements Sinus rhythm Biatrial enlargement Nonspecific intraventricular conduction delay Lateral infarct, age indeterminate Anterior infarct, acute (LAD) Electronically Signed On 06-02-2025 10:27:[address] Eddy Keyes Please click the below link to view image of tracing.
[2025-06-02 10:22] LABS: LEUKOCYTE ESTERASE ,URINE NEGATIVE (Neg); NITRITES, URINE NEGATIVE (Neg); OCCULT BLOOD,URINE NEGATIVE (Neg)
[2025-06-02 10:26] LABS: MEAN PLATELET VOLUME 10.5 FL (7.4-10.4); RED CELL DISTRIBUTION WIDTH 13.6 % (11.5-14.5)
[2025-06-02 10:27] LABS: UA COLLECTION TYPE CLN CATCH MIDSTREAM
[2025-06-02 10:48] LABS: CREATININE 0.75 MG/DL (0.40-0.90); PRO BRAIN NATRIURETIC PEPTIDE 1373 PG/ML (0-125); TOTAL CARBON DIOXIDE 24.6 MMOL/L (24-32); eCRCL 90 ML/MIN; eGFR 86 ML/MIN
--- NOTE | 2025-06-02 10:48 | RADIOLOGY REPORT ---
CHEST RADIOGRAPH Indication: CP Technique: DI CHEST,SINGLE VIEW Comparison: 05/24/2025, 05/21/2025 FINDINGS: 1 The cardiac silhouette is demonstrating opacity near the right cardiac border. The lungs demonstrate opacity near the right cardiac border. The pulmonary vasculature is unremarkable. There is no pleural effusion. There is no pneumothorax. IMPRESSION: Opacity near the right cardiac border. Recommend CT chest with contrast to further evaluate.
--- NOTE | 2025-06-02 15:32 | Physician Documentation ---
History of Present Illness ~ Chief Complaint: Weakness Stated Complaint: MULTIPLE MED COMPLAINTS Time Seen by MD: 12:51 OK to notify your PCP?: Yes Primary Medical Doctor: Nilsa Hurt Source: patient, RN/, RN notes reviewed, old records Mode of Arrival: Ambulatory Exam Limitations: no limitations HPI This patient at a very young age of 39 seven multiple medical problems. This patient was just seen and discharged for confirmed CVA and discharged home with blood thinners and multiple medications including Eliquis, aspirin, statins incl uding Jardiance Lasix beta blockers metoprolol as well as Gary toe. In addition she still has some residual symptoms of her stroke. Patient was just not feeling well having some new facial numbness in addition to some of her symptoms that she had before however she had complete loss of speech and right- sided weakness when she initially presented so she is doing much better from baseline. Because the patient was not hot feeling well and does not want to be discharged the patient had a consultation from [facility] neurology who recommended that the patient follow up with their physician return if they have any new complaints but otherwise did not need any additional treatments. He thought this was typical of post seizure presentation. Patient is cardiomyopathy has been quite severe with the left ejection fraction of 15%. This improved her last ejection fraction was 20% and had a Lexiscan which was negative for any reversible defects. Dr. Moreno recommended medical management during her prior hospitalization sent to follow up with Dr. Lopez. Patient was then once again admitted on 05/24/2025 and discharged on 05/26 for a pretty significant CVA that resolved. Patient received TNK. And had a pretty significant resolution of her stroke. Medication Reconciliation Allergies: Coded Allergies: No Known Allergies (Unverified , 06/02/25) Scheduled Apixaban (Eliquis), 5 MG PO BID Aspirin (Ecotrin*), 1 TAB PO DAILY Atorvastatin Calcium (Atorvastatin Calcium), 40 MG PO HS Empagliflozin (Jardiance), 10 MG PO DAILY Furosemide* (Lasix*), 1 TAB PO DAILY Metoprolol Succinate (Metoprolol Succinate), 25 MG PO DAILY Multivitamin (Multi Vitamin Daily), 1 TAB PO DAILY, (Reported) Potassium Chloride (K-Dur), 1 TAB PO DAILY Sacubitril/Valsartan (Entresto 24 mg-26 mg Tablet), 1 TABLET PO BID Scheduled PRN Hydroxyzine Hcl (Atarax), 1 TAB PO Q6H PRN for anxiety Past Medical History Past Medical History: No Pertinent History Patient History: Cardiomyopathy Paternal grandfather FH: CVA (cerebrovascular accident) Maternal grandmother Paternal grandmother (x 3) FH: colon cancer Maternal grandmother FH: hypertension Paternal grandmother Smoking Status: Former smoker Drug Use: marijuana Review of Systems All Other Systems at this time: Reviewed and Negative Physical Exam Vital Signs: RN Vital Signs have been reviewed: Yes, Temperature: 97.1, Source: Temporal, Heart Rate: 89, Respiratory Rate: 12, BP: 125/84, Pulse Oximetry: 96, Weight: 78.200 Oxygen Flow Rate: 0 Physical Exam General: The patient is well developed, well nourished, nontoxic appearing and is in no acute distress. Uncomfortable, generalized weakness Skin: [place], warm and dry with no rashes. HEENT: Head was normocephalic and atraumatic. Eyes - pupils equal, round, reactive to light and accommodation. Extraocular movements were intact. Conjunctivae were nonicteric. The mouth and oropharynx were clear with moist mucous membranes. There were no pharyngeal exudates or erythema. Neck: Supple and nontender. There was no jugular venous distention, lymphadenopathy, thyromegaly or masses. Chest: Clear to auscultation bilaterally without wheezes, rales or rhonchi. No accessory muscle use. No dullness to percussion. Heart: Rate regular and rhythmic. S1, S2. No murmurs. Palpation of the chest wall was normal. No rubs or thrills. Abdomen: Soft, nontender and nondistended. Positive bowel sounds. No guarding or rebound. No hepatosplenomegaly or palpable masses. Extremities: No cyanosis, clubbing or edema. The patient moves all extremities. Pulses were equal and symmetric. Neurologic: Motor sensory grossly intact some slight facial numbness to the right jaw area Psychologic: The patient was oriented to person, place and time. The patient demonstrated appropriate judgement and insight. Progress Progress Note 7:30 p.m. discussed the case with the hospitalist service who agreed to admit the patient for observation as well as possible re-evaluation as stroke-like symptoms and changing palpitations arrhythmias as well as cardiac monitoring. Results/Orders Reviewed/noted all lab results: Yes Results/Orders Orders - GIL DEVI MD Straight Cath For Urine Sample (06/02/25 10:05) Chest,Single View (06/02/25 10:09) Monitor (06/02/25 10:09) Saline Lock (06/02/25 10:09) Oxygen (06/02/25 10:09) Electrocardiogram (06/02/25 10:09) Ct Chest (06/02/25 14:59) Raoul Prov.Neuro Consult (06/02/25 16:59) Page Hospitalist (06/02/25 19:13) Fill Out Med Reconciliation (06/02/25 19:13) Completed Orders - GIL DEVI MD Urinalysis, Cult If Indicated (06/02/25 10:05) Chest,Single View (06/02/25 10:09) Cbc/Diff (06/02/25 10:09) BMP (06/02/25 10:09) PBNP (06/02/25 10:09) Electrocardiogram (06/02/25 10:09) Hs Troponin I W Calculations (06/02/25 10:09) Hs Troponin I W Calculations (06/02/25 12:09) Hs Troponin I W Calculations (06/02/25 13:09) Ct Chest (06/02/25 14:59) Drug Screen, Urine (06/02/25 15:25) Iohexol 300mg/Ml 100ml Inj. (Omnipaque-3 (06/02/25 15:43) Vital Signs 06/02/25 06/02/25 06/02/25 06/02/25 09:58 10:09 11:00 12:00 Temp 97.1 Pulse 111 76 66 Resp 20 12 12 B/P (MAP) 128/77 118/70 (86) 103/71 (82) Pulse Ox 97 96 98 O2 Flow Rate 0 0 0 06/02/25 06/02/25 06/02/25 06/02/25 12:54 14:00 15:00 16:00 Pulse 75 97 89 86 Resp 12 14 12 16 B/P (MAP) 115/83 (94) 105/66 (79) 125/84 (98) 121/84 (96) Pulse Ox 99 99 96 97 O2 Flow Rate 0 0 0 0 06/02/25 06/02/25 06/02/25 06/02/25 17:00 18:00 18:44 18:51 Temp 97.1 Pulse 76 76 92 79 Resp 16 16 14 B/P (MAP) 113/78 (90) 120/84 (96) 90/70 (77) 118/81 Pulse Ox 98 97 98 O2 Flow Rate 0 0 0 06/02/25 06/02/25 18:52 18:54 Pulse 85 103 B/P (MAP) 124/68 118/71 Laboratory Tests Test 06/02/25 10:10 06/02/25 10:19 06/02/25 11:45 06/02/25 13:53 Urine Specimen Description Cln catch midstream Urine Color Yellow Urine Clarity Clear Urine pH 5.5 Urine Specific [place] 1.020 Urine Protein Negative Urine Glucose (UA) Negative Urine Ketones Trace H Urine Occult Blood Negative Urine Nitrite Negative Urine Bilirubin Negative Urine Urobilinogen 0.2 Urine Leukocyte Esterase Negative Urine Culture Indicated Not ind Volume Urine Centrifuged 10 ml Urine Comment Urine Opiates Screen Negative Urine Methadone Screen Negative Urine Fentanyl Screen Negative Urine Barbiturates Screen Negative Urine Phencyclidine Screen Negative Urine Amphetamines Screen Negative Urine Benzodiazepines Screen Negative Urine Cocaine Screen Negative Urine Cannabinoids Screen Positive Drug Screen Comment White Blood Count 11.5 H Red Blood Count 5.33 Hemoglobin 15.1 Hematocrit 44.8 Mean Corpuscular Volume 84.1 Mean Corpuscular Hemoglobin 28.4 Mean Corpuscular Hemoglobin Concent 33.8 Red Cell Distribution Width 13.6 Platelet Count 255 Mean Platelet Volume 10.5 H Neutrophils (%) (Auto) 74.9 Lymphocytes (%) (Auto) 19.9 L Monocytes (%) (Auto) 4.2 Eosinophils (%) (Auto) 0.4 Basophils (%) (Auto) 0.6 Neutrophils # (Auto) 8.6 H Lymphocytes # (Auto) 2.3 Monocytes # (Auto) 0.5 Eosinophils # (Auto) 0.1 Basophils # (Auto) 0.1 CBC Comment Sodium Level 142 Potassium Level 4.1 Chloride Level 107 Carbon Dioxide Level 24.6 Anion Gap 10 Blood Urea Nitrogen 12 Creatinine 0.75 Estimated GFR/1.73 m2 86 BUN/Creatinine Ratio 16.0 Glucose Level 109 H Calcium Level 9.0 Troponin I High Sensitivity 12 14 14 Pro-B-Type Natriuretic Peptide 1373 H Albumin 3.9 Chemistry Comments Troponin I High Sens Percent Delta 16 0 Troponin I Hi Sens Absolute Change 2 0 Re-Evaluation Re-Evaluation : Progress Patient was seen and examined. Patient was given reassurance. Patient is having some generalized weakness has been on new multiple medications. She has been having cardiac arrhythmias palpitations feeling weak has a history of heart failure as well as recently started on new medications in addition to a confirmed stroke for which she is having some possible progression of symptoms. Patient is at time is hypotensive. There was no signs of bradycardia. Patient received a neurology consultation which thought some of her symptoms were just normal progression of her stroke and disease process. Laboratory work shows slight elevation of the white count at 11.5 but no left shift no anemia. Chemistry is within normal limits. Troponins are negative. ProBNP 1373. Tox screen is positive for marijuan continuous engine monitor interpretation shows bigeminy heart rates 90s, multiple ectopy, abnormal, my interpretation of the times normal sinus rhythm heart rate 70s, no ectopy, normal, my interpretation. Pulse oximetry monitor interpretation shows normal oxygenation 98% room air, no rmal, my interpretation. 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 Gil Devi Measurements Intervals [place] Rate: 95 P: 79 IA: 160 QRS: 101 QRSD: 175 T: -23 QT: 414 QTc: 521 Interpretive Statements Sinus rhythm Biatrial enlargement Nonspecific intraventricular conduction delay Lateral infarct, age indeterminate Anterior infarct, acute (LAD) Electronically Signed On 06-02-2025 10:27:[address] Gil Devi Please click the below link to view image of tracing. Chest X-Ray : Interpreted By: self Additional Comments CHEST RADIOGRAPH Indication: CP Technique: DI CHEST,SINGLE VIEW Comparison: 05/24/2025, 05/21/2025 FINDINGS: 1 The cardiac silhouette is demonstrating opacity near the right cardiac border. The lungs demonstrate opacity near the right cardiac border. The pulmonary vasculature is unremarkable. There is no pleural effusion. There is no pneumothorax. IMPRESSION: Opacity near the right cardiac border. Recommend CT chest with contrast to further evaluate. Heart Score: Heart Score Response (Comments) Value History Slightly Suspicious 0 EKG Repolarization Disturb 1 Age 45-64 1 Risk Factors >3 or Hx ASHD 2 Troponin Normal limit 0 Total 4 Medical Decision Making Additional info obtained from: old records Differential Dx:Considerations: Include: anemia, CVA, dehydration, dysrhythmia, electrolyte imbalance, hypoglycemia, hypotension, hypovolemia, myocardial infarction, pulmonary embolus, renal failure, TIA, other Departure Disposition: ADMITTED INPATIENT Admitted to Inpatient Unit: to hospitalist Admission Level of Care: PCU with Tele Impression: Primary Impression: Generalized weakness Additional Impressions: Palpitations Status post CVA Condition: Fair Referrals: NO PRIMARY CARE PROVIDER (PCP) Education Educated: Patient Educated regarding: diagnosis Signature Scribe Signature: . Attestation: The note accurately reflects work and decisions made by me.Gil Devi MD 06/02/25 18:40 GIL DEVI MD Jun 02, 2025 15:32
[2025-06-02] MEDS ORDERED: iohexol 300mg/ml 100ml inj. ONE (15:43)
[2025-06-02 16:14] LABS: URINE AMPHETAMINE SCREEN NEGATIVE (Neg); URINE BARBITUATE SCREEN NEGATIVE (Neg); URINE BENZODIAZEPINES SCREEN NEGATIVE (Neg); URINE CANNABINOID SCREEN POSITIVE (Neg); URINE COCAINE SCREEN NEGATIVE (Neg); URINE METHADONE SCREEN NEGATIVE (Neg); URINE OPIATE SCREEN NEGATIVE (Neg); URINE PHENCYCLIDINE SCREEN NEGATIVE (Neg)
--- NOTE | 2025-06-02 17:29 | RADIOLOGY REPORT ---
NON-CONTRAST CHEST COMPUTERIZED TOMOGRAPHY REASON FOR STUDY: Opacity near the right cardiac border COMPARISON: Chest radiograph performed earlier on the same date TECHNIQUE: The exam was performed on a multidetector spiral scanner. Spiral scans were acquired throu gh the chest. 2-D coronal and sagittal reformatted images were provided. Radiation optimization: All CT scans at this facility use at least one of these dose optimization techniques: Automated exposure control mA and/or kV adjustment per patient size (includes targeted exams where dose is matched to cl inical indication) or iterative reconstruction. RADIATION DOSE: CTDI: 13 mGy DLP: 531 mGy-cm FINDINGS: No pulmonary nodule or mass is identified. There is no bronchiectasis or honeycombing. Th ere is trace linear atelectasis versus scarring in the left lower lobe. There is no pleural effusion. There is no pneumothorax. The left ventricle is significantly enlarged. There is no pericardial effu trinity. There is prominent epicardial fat in the anterior mediastinum which causes the lobulated right heart border seen on chest radiograph. There is no thoracic aortic aneurysm or dissection. There is n o large central pulmonary embolism. No pathologic lymphadenopathy is identified by size criteria. No acute osseous abnormality is identified. IMPRESSION: The lobulated right heart border seen on chest radiograph is caused by prominent epicardial fat and r equires no dedicated follow-up. The left ventricle of the heart is significantly enlarged. Echocardiogram is recommended to evaluate for possible aortic valvular insufficiency.
--- NOTE | 2025-06-02 20:10 | CONSULTATION REPORT ---
History of Present Illness Providers to CC ~ Refering MD: Nilsa Hurt History of Present Illness [facility] Neuro Note # Demographics Consult Type: General Neurology Patient Location: Emergency Room First Name: Jordyn Last Name: Jason Date of : 1985 Age: 39 Gender: Female Facility: [facility] Time of Initial Page (): 06/02/2025 17:08 First Contact with Site (): 06/02/2025 17:09 # HPI History: 39 year old female with PMH of recent stroke, CHF, that I was requested to evaluate for a neurologic concern. The patient came in with right facial numbness. She has right sided numbness which is old from MRI confirmed stroke. She also has a touch of heart failure. During my evaluation the patient reports that her hand has stayed numb from the stroke last week. For the past four days she reports she has been extremely weak and dizzy. When she gets up and moves around she feels like there might be some increased numbness. Not every time. In the last few days she will feel a pressure in her head and feels foggy, and even when she lays down she can feel an unusual throbbing sensation. She is on aspirin and Eliquis. # Exam Time of Exam (): 06/02/2025 17:22 Mental Status: - awake - alert and oriented x 3 - follows commands Language: - normal speech - no aphasia - no dysarthria Cranial Nerves: - normal - no facial droop - normal facial sensation - no dysarthria Motor: - normal bulk - normal strength - no drift Cerebellar: - normal finger nose - normal heel muhammad # ROS Neurologic: - see HPI # PMH-FH-SH Past Medical History: recent stroke, CHF Medications: Eliquis, aspirin # Assessment Impression: - Weakness The patient presents with non-specific symptoms of fatigue, fluctuation in her stroke symptoms, and dizziness. This is likely all due to regular stroke recovery and side effects from medications. I have low suspicion this represents acute stroke. She is also already on the most aggressive medical management with both antiplatelet and NOAC. # Plan Other: - If patient has any neurological deterioration please call me back immediately Additional Recommendations: == continue current regimen == rule out secondary causes (i.e., infectious, metabolic, toxic) == no need for MRI unless new deficit is found # Logistics Attestation of consult completion: The patient is located at: [facility]. Facility staff participated in the visit. I performed this telemedicine visit from my offsite office utilizing interactive 2 way audio and visual telecommunication technology at the request of the onsite emergency room provider. Consent: Verbal consent was obtained from the patient and/or family for this encounter. Total time spent in telemedicine encounter: I spent 20 minutes reviewing clinical data and/or imaging, obtaining history, examining the patient, communicating with the onsite care team, and in preparation of this report. Critical Care time: 15 minutes of this encounter were critical care time. Due to a high probability of clinically significant, life-threatening neurologic deterioration, the patient required my highest level of preparedness to intervene emergently. I spent this critical care time managing the patient in conjunction with on-site providers who requested my consultation. In addition to the above, this critical care time included recommendation and review of studies, including imaging; arranging an urgent treatment and management plan with on-site providers; evaluation of patient's response to treatment; and documentation. This critical care time was performed to assess and manage the high probability of imminent, life-threatening deterioration that could result in neurologic catastrophe. # Demographics First Name: Jordyn Last Name: Jason Facility: [facility] Allergies: Coded Allergies: No Known Allergies (Unverified , 06/02/25) Home Medications Home Medications Active Atarax (Hydroxyzine Hcl) 25 Mg Tablet 1 Tab PO Q6H PRN 10 Days Eliquis (Apixaban) 5 Mg Tablet 5 Mg PO BID Jardiance (Empagliflozin) 10 Mg Tablet 10 Mg PO DAILY 30 Days K-Dur (Potassium Chloride) 10 Meq Tab.prt.sr 1 Tab PO DAILY 30 Days Lasix* (Furosemide) 20 Mg Tablet 1 Tab PO DAILY 30 Days Ecotrin* (Aspirin) 81 Mg Tablet.dr 1 Tab PO DAILY 30 Days Entresto 24 mg-26 mg Tablet (Sacubitril/Valsartan) 24 Mg-26 Mg Tablet 1 Tablet PO BID 30 Days Metoprolol Succinate 25 Mg Tab.sr.24h 25 Mg PO DAILY 30 Days Atorvastatin Calcium 20 Mg Tablet 40 Mg PO HS 90 Days Reported Multi Vitamin Daily (Multivitamin) 1 Each Tablet 1 Tab PO DAILY 30 Days Past Family History Family History: Cardiomyopathy Paternal grandfather FH: CVA (cerebrovascular accident) Maternal grandmother Paternal grandmother (x 3) FH: colon cancer Maternal grandmother FH: hypertension Paternal grandmother Physical Exam Last Vital Signs Recorded: Temperature: 97.1, Source: Oral, Heart Rate: 103, Respiratory Rate: 14, BP: 118/71, Pulse Oximetry: 98, Weight: 78.200 Results Diagram Lab Result Diagram: 06/02/25 1019 06/02/25 1019 ROGERS REESE MD Jun 02, 2025 20:10
[2025-06-02] MEDS ORDERED: potassium Cl 20 mEq SR tablet PO PRN ×2 (20:25)
[2025-06-02] MEDS ORDERED: magnesium sulf-water 4G/100mL 100 ML IV PRN (20:25)
[2025-06-02] MEDS ORDERED: mag hydrox/Alum hydrox/simeth 30ml oral suspension PO PRN (20:25)
[2025-06-02] MEDS ORDERED: magnesium sulf-water 2g/50mL 50 ML IV PRN (20:25)
[2025-06-02] MEDS ORDERED: magnesium Cl slow-release 64mg tablet PO PRN (20:25)
[2025-06-02] MEDS ORDERED: potassium Cl 40MEQ/1/2NS 520ml 520 ML IV PRN (20:25)
[2025-06-02] MEDS ORDERED: magnesium hydroxide 30ml (MOM) UD suspension PO PRN (20:25)
--- NOTE | 2025-06-02 20:45 | HISTORY AND PHYSICAL-Residence ---
History & Physical Providers to CC Resident Creating Document: BLADE CRISOSTOMO, CARIE ~ History of Present Illness Primary Medical Doctor: [facility] [address] Reason for Admit\Complaint: Weakness History of Present Illness This is 39-year-old female known case of heart failure, stroke, presented to ER with complaint of generalized weakness, lightheadedness. On when she was at work she started noticing spots around her eyes, lightheadedness, weakness and spots in around her eyes lasted for 1 hour but other symptoms persists, her appetite is decreased and she do not want to eat anything but forces herself to eat. In addition that, she also feels nauseated and reports sensation in her whole body while lying down which she says she can not describe, she feels pressure on her head but it doesnt bother her much, patient report that she feels weak overall and fatigue and cant walk because of it, patient also reports mild shortness of breath, she also reports episodes of feeling cold and hot accompanied by sweating. She reports chest pain and both sided shoulder pain when lying for longer time. Sometimes she feels so much fatigue while talking and says she dont want to talk. Patient thinks her above symptoms are due to her medication which were started recently after discharge from hospital on 05/26/2025. She was recently admitted for stroke on 05/23/2025 and discharged on 05/26/25 and for heart failure admitted on 05/21/2025 discharged on 05/23/2025. Patient also reports facial numbness in her whole face more towards right side, and right hand numbness which she mentions is from stroke which was diagnosed recently. She also reports pain in fingers and neck since many years. Her System Administration Manager is Dr. Clinton Allergies: Coded Allergies: No Known Allergies (Unverified , 06/02/25) Home Medications Home Medications Active Atarax (Hydroxyzine Hcl) 25 Mg Tablet 1 Tab PO Q6H PRN 10 Days Eliquis (Apixaban) 5 Mg Tablet 5 Mg PO BID Jardiance (Empagliflozin) 10 Mg Tablet 10 Mg PO DAILY 30 Days K-Dur (Potassium Chloride) 10 Meq Tab.prt.sr 1 Tab PO DAILY 30 Days Lasix* (Furosemide) 20 Mg Tablet 1 Tab PO DAILY 30 Days Ecotrin* (Aspirin) 81 Mg Tablet.dr 1 Tab PO DAILY 30 Days Entresto 24 mg-26 mg Tablet (Sacubitril/Valsartan) 24 Mg-26 Mg Tablet 1 Tablet PO BID 30 Days Metoprolol Succinate 25 Mg Tab.sr.24h 25 Mg PO DAILY 30 Days Atorvastatin Calcium 20 Mg Tablet 40 Mg PO HS 90 Days Reported Multi Vitamin Daily (Multivitamin) 1 Each Tablet 1 Tab PO DAILY 30 Days Past Medical History Past Medical History Heart Failure with reduced ejection fraction Ishcemic Stroke History of 3 miscariages. Past Surgical History Surgical History Comment Tonsillectomy Widsom teeth removed Right foot screw was placed. Family History Family History: Cardiomyopathy Paternal grandfather FH: CVA (cerebrovascular accident) Maternal grandmother Paternal grandmother (x 3) FH: colon cancer Maternal grandmother FH: heart disease FH: hypertension Paternal grandmother Past Social History Social History Comment She recently quit smoking approximately 2 weeks ago, before that she smoked for 30 years and smoked half pack a day. She recently quit smoking weed approximately two weeks ago, before that smoked weed for 30 years ago. Denies Alcohol , used to drink occassionaly when in 19z. She tried Ectasy when she was teenager about 3-4 times. 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 ROS Constitutional: Reports: weakness Eyes: Reports: no symptoms reported ENT: Reports: no symptoms reported Respiratory: Reports: shortness of breath Cardiovascular: Reports: no symptoms reported Gastrointestinal: Reports: nausea Genitourinary: Reports: no symptoms reported Female Genitalia: Reports: no reported symptoms Neurological: Reports: dizziness, other ( numbness in right hand,facial numbness more towards on right side) Endocrine: Reports: other (somtimes reports episode of cold and hot accompanied by sweating.) Psychiatric: Reports: no symptoms reported Exam Vitals: Vital Signs Date Time Temp Pulse Resp B/P (MAP) Pulse Ox O2 Delivery O2 Flow Rate FiO2 06/02/25 20:39 97.1 76 10 114/73 (87) 98 0 General: General: awake, alert oriented to place, time, and person HEENT: No pallor present, no icterus, moist mucous membranes Neck: No masses and tenderness Resp: Unlabored. Lungs clear to auscultation bilaterally. Chest: Normal expansion. Cardiovascular: Regular Rate and rhythm, normal S1 and S2 without murmur, rub or gallop Abdomen: Soft and non tender in epigastrium, no organomegaly, no guarding and rigidity, bowel sounds present Neuro: No focal weakness in the upper and lower limb muscles, power of the muscles 5/5 bilateral upper and lower extremities, normal reflexes bilaterally. Cranial nerves intact,numbness in right hand and facial numbness more towards right side. Cereballar-normal finger to nose Extremities: No cyanosis,clubbing or edema Skin: Warm and Dry. No lesions Psych: Normal affect Diagnostic Data Last Recorded Lab Results: 06/02/25 1019 06/02/25 1019 Advance Care Planning Advanced Care plannin - 30 Minutes (I spent 17 minutes in discussing various resuscitative measures with the patient and she chose to be full code.) Additional Plan This is 39-year-old female known case of heart failure, stroke presented to ER with complaint of generalized weakness, lightheadedness and spots in eyes. On when she were was at work she started noticing spots around her eyes, lightheadedness, weakness and facial numbness, spots in around her eyes lasted for 1 hour but other symptoms persists. 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 Continue Aspirin 81 mg daily. Continue Atorvastatin 40 mg daily and apixaban 5 mg daily. She should undergo hypercoaguble studies, anticardiolipin antibodies have been ordered. Follow lipid panel CT scan ordered to rule out hemorhagic stroke. Repeat MRI outpatient. Neurology was consulted and suggested to continue current treatment and no new MRI is needed at this moment. Acute on Chronic Congestive Heart failure with Reduced Ejection Fraction likely due to Dilated Cardiomyopathy Pro Bnp 1373 Trops negative Heart Score 1 EKG shows HR 82, wide QRS complexes and Bigeminy. Echo done in 05/22/2025 which shows severely left ventricular dilation with EF 20%. Continue lasix 20 mg IV BID daily. Continue metoprolol succinate 25 mg daily. Continue Entersto 24-26 mg daily Placed on Continous telemetry Consult Cardiology for possbile cause of cardiomyopathy. DVT Prophylaxis: Eliquis 5 mg Code Status: Full Code Blade Crisostomo PGY1 INTERNAL MEDICINE RESIDENT Attending Physician Pt seen and evaluated discussed with you I have discussed the pt with the resident I suggested other tests that need to be done We will have Cardiology re evaluate the patient and make further recommendations Her symptoms may be from the effects of progressively worsening CHF Continue present mgt until further recs from them. Date of Service: Jun 02, 2025 Billing Provider: BLADE CRISOSTOMO RES KUMAR, SANJAY, RES Jun 02, 2025 20:45 RON GOMEZ Jun 02, 2025 22:21 NETO WESTFALL MD Jun 03, 2025 04:19
--- NOTE | 2025-06-02 20:45 | HISTORY AND PHYSICAL-Residence ---
History & Physical Providers to Resident Creating Document: CEDRIC HAMMOND RES ~ History of Present Illness Primary Medical Doctor: Nilsa Arboleda [facility] Allergies: Coded Allergies: No Known Allergies (Unverified , 06/02/25) Home Medications Home Medications Active Atarax (Hydroxyzine Hcl) 25 Mg Tablet 1 Tab PO Q6H PRN 10 Days Eliquis (Apixaban) 5 Mg Tablet 5 Mg PO BID Jardiance (Empagliflozin) 10 Mg Tablet 10 Mg PO DAILY 30 Days K-Dur (Potassium Chloride) 10 Meq Tab.prt.sr 1 Tab PO DAILY 30 Days Lasix* (Furosemide) 20 Mg Tablet 1 Tab PO DAILY 30 Days Ecotrin* (Aspirin) 81 Mg Tablet.dr 1 Tab PO DAILY 30 Days Entresto 24 mg-26 mg Tablet (Sacubitril/Valsartan) 24 Mg-26 Mg Tablet 1 Tablet PO BID 30 Days Metoprolol Succinate 25 Mg Tab.sr.24h 25 Mg PO DAILY 30 Days Atorvastatin Calcium 20 Mg Tablet 40 Mg PO HS 90 Days Reported Multi Vitamin Daily (Multivitamin) 1 Each Tablet 1 Tab PO DAILY 30 Days Family History Family History: Cardiomyopathy Paternal grandfather FH: CVA (cerebrovascular accident) Maternal grandmother Paternal grandmother (x 3) FH: colon cancer Maternal grandmother FH: hypertension Paternal grandmother Past Social History Drug Use: Marijuana ROS All Other Systems: Reviewed and Negative Exam Vitals: Vital Signs Date Time Temp Pulse Resp B/P (MAP) Pulse Ox O2 Delivery O2 Flow Rate FiO2 06/02/25 20:39 97.1 76 10 114/73 (87) 98 0 Diagnostic Data Last Recorded Lab Results: 06/02/25 1019 06/02/25 1019 Date of Service: Jun 02, 2025 Billing Provider: NETO WESTFALL MD, SANJAY, RES Jun 02, 2025 20:45
[2025-06-02 20:58] LABS: CHOL/HDL RATIO 3.4 (0.00-4.99); LDL CHOLESTEROL 71 MG/DL (50-100)
[2025-06-02 21:12] VITALS: BP 99/63; PULSE 67; RESP 18; TEMP 98.6; O2SAT 97
[2025-06-02 21:15] VITALS: RESP 18; O2SAT 97
[2025-06-02 22:00] VITALS: BP 99/61; PULSE 60; RESP 16; TEMP 98.6; O2SAT 99
[2025-06-03] VITALS (8 sets, daily range): BP systolic 88–107; BP diastolic 50–65; PULSE 61–81; RESP 11–19; TEMP 97.1–98.6; O2SAT 94–99
--- NOTE | 2025-06-03 00:53 | RADIOLOGY REPORT ---
Indication: weakness,numbness Comparison: MR MRI HEAD on DOS: 05/25/25, CT CT HEAD on DOS: 05/24/25, CT CTA NECK/HEAD on DOS: 05/24/25, C T CT STROKE ALERT on DOS: 05/24/25 Technique: Utilizing a multislice CT scanner, a CT scan of the brain was performed without intravenou s contrast. Coronal and sagittal reformatted images. All CT scans at this facility use dose modulation, iterative reconstruction, and/or weight based dosi ng when appropriate to reduce radiation dose to as low as reasonably achievable. Findings: There is no acute infarct, intracranial hemorrhage, or mass effect. There is no hydrocephalus or sign ificant midline shift. No acute, depressed calvarial fractures. No large scalp hematomas. Impression: 1. No acute intracranial process.
[2025-06-03 03:57] LABS: CREATININE 0.75 MG/DL (0.40-0.90); PHOSPHORUS 4.6 MG/DL (2.3-4.5); TOTAL CARBON DIOXIDE 25.9 MMOL/L (24-32); eCRCL 90 ML/MIN; eGFR 86 ML/MIN
[2025-06-03 04:01] LABS: APTT 21 SECONDS (22-32); INR 1.1 INR
[2025-06-03 06:19] LABS: MEAN PLATELET VOLUME 10.3 FL (7.4-10.4); RED CELL DISTRIBUTION WIDTH 13.4 % (11.5-14.5)
[2025-06-03] MEDS: K and/or MAG REPLACEMENT MC SCH (08:00)
[2025-06-03] MEDS: docusate sod 100mg capsule PO SCH (08:00)
[2025-06-03] MEDS: sacubitril/valsartan 24mg-26mg tablet PO ONE (08:21)
[2025-06-03] MEDS: metoprolol succinate 25mg (24-HOUR) SR. Tablet PO SCH (08:22)
[2025-06-03] MEDS: aspirin 81mg, enteric-coated 1 TAB TABLET.DR PO SCH (08:22)
[2025-06-03 10:27] LABS: HCG SERUM QL NEGATIVE
[2025-06-03] MEDS ORDERED: normal saline 500ml IV soln 500 ML IV SCH (12:30)
[2025-06-03] MEDS: normal saline 500ml IV soln 500 ML IV ONE (12:57)
--- NOTE | 2025-06-03 18:15 | PROGRESS NOTE- Residence ---
Progress Note - Resident Providers to CC Resident Creating Document: GIL MONTANO, RES ~ Antibiotic Timeout Antibiotic Ordered?: No Subjective Patient is seen and examined at the bedside today. She stated that she was feeling fine throughout the night but half an hour after she took her morning medications she has been having severe dizziness, weakness and fatigue. She stated that these are the symptoms that made her come into the hospital. He also reported that she feels like her heart is pounding hard and feels like she is skipping beats. She denied any chest pain, abdominal pain, nausea, vomiting at the moment. Objective Vital Signs Date Time Temp Pulse Resp B/P (MAP) Pulse Ox O2 Delivery O2 Flow Rate FiO2 06/03/25 15:00 97.5 74 11 92/62 (72) 96 Room Air 06/03/25 15:00 0 21 Result Diagram: 06/03/2560406/03/25 0328 General: Awake, alert in mild distress. HEENT: PERRLA, clear sclera, conjunctiva pink Neck: No masses or lymphadenopathy Respiratory: Bilateral airway entry present. No adventitious breath sounds heard. CVS: S1-S2 heard. Regular rate and rhythm. No murmurs or rubs heard. Abdomen: Soft nontender. Bowel sounds present. Extremities: No cyanosis clubbing or edema. Neurology: No focal motor or sensory deficits. Psychiatric: Normal mood and affect. Musculoskeletal: No deformities. Coagulation Studies Laboratory Tests Test 06/03/25 03:28 Prothrombin Time 11.4 SECONDS (9.0-12.0) INR International Normalized Ratio 1.1 INR Activated Partial Thromboplast Time 21 SECONDS (22-32) L Coagulation Comments Assessment Assessment 39-year-old female with a history of ischemic stroke, heart failure with reduced ejection fraction is admitted in the hospital for evaluation and management of generalized weakness, dizziness. Plan Plan Acute congestive heart failure with reduced ejection fraction NYHA class 2, aha stage C Dilated cardiomyopathy Symptomatic hypotension ProBNP 1373 Echocardiography from 05/22/2025 shows a left ventricular ejection fraction of 20%. There is severe dilation of the left ventricle, moderate dilatation of the left atrium. The patient does not appear to be in acute fluid overload. Started the patient on home dose of Lasix 20 p.o. daily The patient received Entresto and metoprolol succinate 25 mg p.o. today. Her blood pressure has dropped down to 80/50. We will hold the patient's Entresto and plan to start her on other MOLINA inhibitor or ARB in a day or two. Discontinued metoprolol succinate 25 mg p.o. daily. Started the patient on metoprolol tartrate 12.5 mg p.o. b.i.d.. We will continue to closely monitor the patient's blood pressure. We will consult the on-call tele tech Dr. López in view of the patient's advanced heart failure. Acute ischemic stroke-on 05/24/2025 Patient was treated with Tenecteplase for her acute ischemic stroke on the 05/24/2025. CT head from yesterday shows no acute intracranial process. The tele neurologist were consulted. Per the tele neurologist the patient does not require a repeat MRI. They recommended to continue the patient on treatment with the apixaban and aspirin along with the atorvastatin. Restarted the patient on aspirin 81 mg p.o. daily, Eliquis 5 mg p.o. b.i.d. and atorvastatin 40 mg daily. The patient does not have any acute focal motor or sensory deficit at the moment. Physical therapy to evaluate the patient. LDL 71, HDL 37, total cholesterol 125, triglycerides 94. TSH 1.15 Suspicion for hypercoagulable state. CODE STATUS: Full code DVT prophylaxis: Eliquis GI prophylaxis: None Diet: Heart healthy diet Disposition: Continue medical management. Anticipate discharge home in the next 24-48 hours. Gil Montano MD Internal Medicine Resident, PGY-3 Date of Service: Jun 03, 2025 Billing Provider: LARRY KING MD,GIL OSBORN, RES Jun 03, 2025 18:15
[2025-06-03] MEDS ORDERED: VALSARTAN PO SCH (20:00)
[2025-06-03] MEDS ORDERED: SACUBITRIL PO SCH (20:00)
--- NOTE | 2025-06-03 22:02 | ELECTROCARDIOGRAPH REPORT ---
[facility] Test Date: 2025-06-03 Test Time: 22:00:30 Pat Name: DIANE REYES Department: 3rd FLOOR PCU Room: [place] [address] B Gender: F Tso: : 1985 Requested By: CEDRIC HAMMOND Order Number: [id number] Reading MD: Dr. ADDI Goodrich Measurements Intervals [place] Rate: 81 P: 48 [place]: 179 QRS: 9 QRSD: 197 T: -31 QT: 471 QTc: 547 Interpretive Statements Sinus rhythm Ventricular premature complex Probable left atrial enlargement IVCD, consider atypical LBBB Baseline wander in lead(s) V3 Electronically Signed On 06-04-2025 9:23:[address] ADDI Goodrich Please click the below link to view image of tracing.
[2025-06-04] VITALS (10 sets, daily range): BP systolic 89–99; BP diastolic 50–64; PULSE 72–91; RESP 15–27; TEMP 98.2–98.6; O2SAT 96–99
[2025-06-04 06:37] LABS: MEAN PLATELET VOLUME 10.6 FL (7.4-10.4); RED CELL DISTRIBUTION WIDTH 13.6 % (11.5-14.5)
[2025-06-04 06:52] LABS: APTT 26 SECONDS (22-32); INR 1.2 INR
[2025-06-04 07:01] LABS: CREATININE 0.80 MG/DL (0.40-0.90); PHOSPHORUS 4.2 MG/DL (2.3-4.5); TOTAL CARBON DIOXIDE 30.1 MMOL/L (24-32); eCRCL 84 ML/MIN; eGFR 79 ML/MIN
[2025-06-04] MEDS: metoprolol tartrate 12.5mg (1/2 tablet) PO SCH (08:00)
[2025-06-04] MEDS: ondansetron/PF 4mg/2ml inj IV PRN (09:15)
[2025-06-04 09:52] LABS: LARGE PLATELETS MODERATE; PLATELET ESTIMATE NORMAL
[2025-06-04] MEDS: EMPAGLIFLOZIN 10 MG TABLET PO SCH ×2 (10:45→15:50)
[2025-06-04] MEDS: normal saline 1000ML IV soln IVB ONE (11:40)
[2025-06-04 15:11] LABS: ANTI-DSDNA ANTIBODIES 1 IU/mL (0-9); ANTINUCLEAR ANTIBODIES Positive (Negative)
[2025-06-04] MEDS: normal saline 500ml IV soln 500 ML IV ONE (16:50)
--- NOTE | 2025-06-04 19:16 | PROGRESS NOTE- Residence ---
Progress Note - Resident Providers to CC Resident Creating Document: GIL MONTANO, RES ~ Antibiotic Timeout Antibiotic Ordered?: No Subjective Patient is seen and examined at the bedside today. She stated that she continues to feel anxious and is not ready to take her blood pressure medications. She reported nasal congestion. Denied dizziness, palpitations, chest pain, syncope, nausea or vomiting at the moment. Objective Vital Signs Date Time Temp Pulse Resp B/P (MAP) Pulse Ox O2 Delivery O2 Flow Rate FiO2 06/04/25 18:34 96 Room Air* 0 21 06/04/25 15:00 98.3 91 27 90/50 (63) Result Diagram: 06/04/25 0556 06/04/25 0556 General: Awake, alert in no acute distress. HEENT: PERRLA, clear sclera, conjunctiva pink Neck: No masses or lymphadenopathy Respiratory: Bilateral airway entry present. No adventitious breath sounds heard. CVS: S1-S2 heard. Regular rate and rhythm. No murmurs or rubs heard. Abdomen: Soft nontender. Bowel sounds present. Extremities: No cyanosis clubbing or edema. Neurology: No focal motor or sensory deficits. Psychiatric: Normal mood and affect. Musculoskeletal: No deformities. Coagulation Studies Laboratory Tests Test 06/04/25 05:56 Prothrombin Time 11.7 SECONDS (9.0-12.0) INR International Normalized Ratio 1.2 INR Activated Partial Thromboplast Time 26 SECONDS (22-32) Coagulation Comments Assessment Assessment 39-year-old female with a history of ischemic stroke, heart failure with reduced ejection fraction is admitted in the hospital for evaluation and management of generalized weakness, dizziness. Plan Plan Acute congestive heart failure with reduced ejection fraction NYHA class 2, aha stage C Dilated cardiomyopathy Symptomatic hypotension ProBNP 1373 Echocardiography from 05/22/2025 shows a left ventricular ejection fraction of 20%. There is severe dilation of the left ventricle, moderate dilatation of the left atrium. The patient does not appear to be in acute fluid overload. The patient is not able to tolerate her current GDMT medications-Entresto and metoprolol succinate 25 mg p.o. She has been developing severe symptomatic hypotension with minimal dosing of the medications and hence we have discontinued Entresto and metoprolol. Discontinued Lasix 20 mg p.o. daily in view of her euvolemia and hypotension. Plan to start the patient on Jardiance 10 mg p.o. daily and losartan 12.5 mg p.o. daily. Recommended the patient to closely monitor her blood pressures at home post discharge. Recommended her to follow up with her swine genetics researcher and PCP within the next 2-3 days. We will continue to closely monitor the patient's blood pressure. Consulted Dr. López in view of the patient's advanced heart failure. Recommended to maintain compliance with her life vest. Acute ischemic stroke-on 05/24/2025 Patient was treated with Tenecteplase for her acute ischemic stroke on the 05/24/2025. CT head from yesterday shows no acute intracranial process. The tele neurologist were consulted. Per the tele neurologist the patient does not require a repeat MRI. They recommended to continue the patient on treatment with the apixaban and aspirin along with the atorvastatin. Restarted the patient on aspirin 81 mg p.o. daily, Eliquis 5 mg p.o. b.i.d. and atorvastatin 40 mg daily. The patient does not have any acute focal motor or sensory deficit at the moment. Physical therapy to evaluate the patient. LDL 71, HDL 37, total cholesterol 125, triglycerides 94. TSH 1.15 Suspicion for hypercoagulable state. CODE STATUS: Full code DVT prophylaxis: Eliquis GI prophylaxis: None Diet: Heart healthy diet Disposition: Continue medical management. Anticipate discharge home in the next 24-48 hours. We will refer the patient to cardiac rehabilitation post discharge. Gil Montano MD Internal Medicine Resident, PGY-3 Date of Service: Jun 04, 2025 Billing Provider: LARRY KING MD,GIL OSBORN, RES Jun 04, 2025 19:16
[2025-06-05] VITALS (7 sets, daily range): BP systolic 91–134; BP diastolic 56–78; PULSE 58–100; RESP 12–20; TEMP 97–98.3; O2SAT 95–99
[2025-06-05 07:25] LABS: MEAN PLATELET VOLUME 10.5 FL (7.4-10.4); RED CELL DISTRIBUTION WIDTH 13.5 % (11.5-14.5)
[2025-06-05 07:26] LABS: CREATININE 0.83 MG/DL (0.40-0.90); PHOSPHORUS 5.1 MG/DL (2.3-4.5); TOTAL CARBON DIOXIDE 24.7 MMOL/L (24-32); eCRCL 81 ML/MIN; eGFR 76 ML/MIN
[2025-06-05 07:29] LABS: APTT 27 SECONDS (22-32); INR 1.2 INR
[2025-06-05] MEDS ORDERED: LOSA25TA41 PO (11:31)
[2025-06-05] MEDS ORDERED: EMPA10TA PO (11:31)
[2025-06-05] MEDS: pantoprazole 40mg Tablet.DR PO SCH (15:00)
--- NOTE | 2025-06-05 16:46 | PROGRESS NOTE- Residence ---
Progress Note - Resident Providers to CC Resident Creating Document: GIL MONTANO, RES ~ Antibiotic Timeout Antibiotic Ordered?: No Subjective Patient is seen and examined at the bedside today. She stated that she continues to feel weak and fatigued. She also complains of left-sided numbness in her arms. She was requesting to talk to the rehabilitation caseworker regarding disability filing. Denied any other concerns or complaints at the moment. Objective Vital Signs Date Time Temp Pulse Resp B/P (MAP) Pulse Ox O2 Delivery O2 Flow Rate FiO2 06/05/25 15:17 98.3 82 16 91/56 (68) 99 Room Air 06/05/25 08:30 0.0 21 Result Diagram: 06/05/2546 06/05/2546 General: Awake, alert in no acute distress. HEENT: PERRLA, clear sclera, conjunctiva pink Neck: No masses or lymphadenopathy Respiratory: Bilateral airway entry present. No adventitious breath sounds heard. CVS: S1-S2 heard. Regular rate and rhythm. No murmurs or rubs heard. Abdomen: Soft nontender. Bowel sounds present. Extremities: No cyanosis clubbing or edema. Neurology: No focal motor or sensory deficits. Psychiatric: Normal mood and affect. Musculoskeletal: No deformities. Coagulation Studies Laboratory Tests Test 06/05/25 06:46 Prothrombin Time 11.9 SECONDS (9.0-12.0) INR International Normalized Ratio 1.2 INR Activated Partial Thromboplast Time 27 SECONDS (22-32) Coagulation Comments Assessment Assessment 39-year-old female with a history of ischemic stroke, heart failure with reduced ejection fraction is admitted in the hospital for evaluation and management of generalized weakness, dizziness. Plan Plan Acute congestive heart failure with reduced ejection fraction NYHA class 2, aha stage C Dilated cardiomyopathy Symptomatic hypotension ProBNP 1373 Echocardiography from 05/22/2025 shows a left ventricular ejection fraction of 20%. There is severe dilation of the left ventricle, moderate dilatation of the left atrium. The patient does not appear to be in acute fluid overload. The patient is not able to tolerate her current GDMT medications-Entresto and metoprolol succinate 25 mg p.o. She has been developing severe symptomatic hypotension with minimal dosing of the medications and hence we have discontinued Entresto and metoprolol. Discontinued Lasix 20 mg p.o. daily in view of her euvolemia and hypotension. Started the patient on Jardiance 10 mg daily and losartan 12.5 mg p.o. daily. Hold losartan for blood pressure less than 100 mmHg. Recommended the patient to closely monitor her blood pressures at home post discharge. Recommended her to follow up with her sandstone inspector repairer and PCP within the next 2-3 days. We will continue to closely monitor the patient's blood pressure. Consulted Dr. López in view of the patient's advanced heart failure. Recommended to maintain compliance with her life vest. Acute ischemic stroke-on 05/24/2025 Patient was treated with Tenecteplase for her acute ischemic stroke on the 05/24/2025. CT head shows no acute intracranial process. Per the tele neurologist- Dr. Steve Harrison the patient does not require a repeat MRI. They recommended to continue the patient on treatment with the apixaban and aspirin along with the atorvastatin. The patient was complaining of left arm numbness that started all of a sudden last night. Awaiting MRI of the head and C-spine to check for any acute changes. Continue physical therapy evaluation and treatment. Suspicion for hypercoagulable state. CODE STATUS: Full code DVT prophylaxis: Eliquis GI prophylaxis: None Diet: Heart healthy diet Disposition: Patient is planned to get MRI of the head and C-spine and is most likely to be discharged if the MRI is negative for any acute findings. Gil Montano MD Internal Medicine Resident, PGY-3 Date of Service: Jun 05, 2025 Billing Provider: LARRY KING MD,GIL OSBORN, RES Jun 05, 2025 16:46
--- NOTE | 2025-06-05 18:28 | RADIOLOGY REPORT ---
CLINICAL HISTORY: arm numbness TECHNIQUE: Routine multiplanar imaging of the brain was performed without gadolinium contrast. COMPARISON: CT CT HEAD on DOS: 06/02/25, MR MRI HEAD on DOS: 05/25/25, CT CT HEAD on DOS: 05/24/25, CT CTA NECK/HEAD on DOS: 05/24/25, CT CT STROKE ALERT on DOS: 05/24/25 FINDINGS: There is an 8 mm acute right frontal parietal junction cortical/white matter infarct. There is 8 mm a cute right frontal cortical infarct. There is 7 mm acute right posterior insular cortex infarct. Small acute infarcts within the left cerebral hemisphere seen on recent MRI are not seen on today's e xam. There are no significant chronic small vessel ischemic foci. There is no evidence for mass, mass effect, or extra-axial fluid collection. There is no hydrocephal us or midline shift. The cerebral sulci and subarachnoid cisterns are not effaced. The imaged paranasal sinuses are clear. The globes are intact. There is 5 mm cerebellar tonsillar top ia. The intracranial flow voids are maintained. IMPRESSION: 8mm acute right frontal fridal junction cortical/white matter infarct. 8 mm acute right frontal cortical infarct. 8 mm acute right posterior insular cortex infarct. 5 mm cerebellar tonsillar ectopia.
--- NOTE | 2025-06-05 18:46 | RADIOLOGY REPORT ---
CLINICAL HISTORY: arm numbness TECHNIQUE: MRI of the cervical spine was performed without gadolinium. COMPARISON: MR MRI HEAD on DOS: 06/05/25, MR MRI HEAD on DOS: 05/25/25, CT CTA NECK/HEAD on DOS: 05/24/25 FINDINGS: There straightening and mild reverse of the normal circular dosis, most likely related patient positi oning. The vertebral body heights are maintained. There is mild C5-C6 disc space loss. There is no pa thologic marrow signal abnormality is seen. There is no abnormal cord signal. The C2-C3 and C3-C4 displaces are unremarkable. At C4-C5, a right paracentral disc protrusion abuts and mildly flattens the right ventral cord. At C5-C6, posterior disc osteophyte complex approaches and may abut the cord. Right facet and uncover tebral pertrophy results in moderate right neuroforaminal narrowing. At C6-C7, a posterior disc osteophyte complex partially effaces the ventral CSF. The C7T1 displaced unremarkable. IMPRESSION: C4-C5 right paracentral disc protrusion abuts and mildly flattens the cord. C5-C6 posterior disc osteophyte complex approaches and may abut the cord. Moderate right C5-C6 neuroforaminal narrowing.
[2025-06-06] VITALS (15 sets, daily range): BP systolic 90–129; BP diastolic 48–80; PULSE 43–119; RESP 11–20; TEMP 97–97.8; O2SAT 95–99
[2025-06-06 06:33] LABS: MEAN PLATELET VOLUME 10.1 FL (7.4-10.4); RED CELL DISTRIBUTION WIDTH 13.6 % (11.5-14.5)
[2025-06-06 06:50] LABS: CREATININE 0.61 MG/DL (0.40-0.90); PHOSPHORUS 4.4 MG/DL (2.3-4.5); TOTAL CARBON DIOXIDE 24.7 MMOL/L (24-32); eCRCL 110 ML/MIN; eGFR > 90 ML/MIN
[2025-06-06 07:00] LABS: INR 1.2 INR
--- NOTE | 2025-06-06 11:46 | [facility] CONSULT REPORT ---
[facility] Procedure Note [facility] Procedure Note Consult [facility] Note # Demographics Consult Type: General Neurology Patient Location: Inpatient First Name: Jordyn Last Name: Jason Date of : 1985 Age: 39 Gender: Female Facility: [facility] Time of Initial Page (): 06/06/2025 11:03 First Contact with Site (): 06/06/2025 11:03 # HPI History: 39 y/o F with a PMHx of recently diagnosed heart failure was admitted on 05/24 when she presented with R sided weakness and aphasia and received TNK. Her MRI revealed a stroke, she was started on Eliquis and discharged home with persistent R sided numbness. She presented back to the ED due to increased fatigue and dizziness, which she describes as lightheadedness. She says she just feels terrible. She denies a headache, change in vision or speech difficulty. # Scores Level of Consciousness 1a: [0] = Alert; keenly responsive LOC Questions 1b: [0] = Answers both questions correctly LOC Commands 1c: [0] = Performs both tasks correctly Best Gaze 2: [0] = Normal Visual 3: [0] = No visual loss Facial Palsy 4: [0] = Normal symmetrical movements Motor Arm Left 5a: [0] = No drift Motor Arm Right 5b: [0] = No drift Motor Leg Left 6a: [0] = No drift Motor Leg Right 6b: [0] = No drift Limb Ataxia 7: [0] = Absent Sensory 8: [1] = Sozc-yt-[id number] sensory loss Best Language 9: [0] = No aphasia Dysarthria 10: [0] = Normal Extinction and Inattention 11: [0] = No abnormality NIHSS Total: 1 # Exam SBP: 92 DBP: 48 # PMH-FH-SH Medications: - NOAC - aspirin # Data MRI: - acute ischemia 06/05-acute R frontal parietal white matter infarct, R frontal cortical infarct, R posterior insular cortex infarct Other Imaging: MRI 05/25-acute L parietal and L posterior frontal lobe infarcts # Assessment Impression: - Ischemic Stroke (Acute) New areas of infarct on the R concerning for central embolic source (prior infarcts last week were L sided), would consider a NATHALIA and hypercoagluable work- up # Plan Labs: - hemoglobin A1c - lipid panel - liver function tests - ESR Hypercoag work-up CLEVE, ANCA, Rheumatoid Factor Diagnostic Test: NATHALIA Medication: - anticoagulation with NOAC - start statin with goal of LDL < 70 Other: - If patient has any neurological deterioration please call me back immediately - telemetry monitoring - I have discussed my recommendations with the referring provider Disposition: continue admission # Logistics Attestation of consult completion: The patient is located at: [facility]. Facility staff participated in the visit. I performed this telemedicine visit from my offsite office utilizing interactive 2 way audio and visual telecommunication technology at the request of the onsite inpatient provider. Total time spent in telemedicine encounter: I spent 25 minutes reviewing clinical data and/or imaging, obtaining history, examining the patient, communicating with the onsite care team, and in preparation of this report. # Demographics First Name: Jordyn Last Name: Jason Facility: [facility] Electronically signed at 06/06/2025 11:45 ([place] Time) by Veronica Kuhn MD Neuro Consult Order placed for: Yes VERONICA KUHN MD Jun 06, 2025 11:46
[2025-06-06] MEDS: MIDAZolam 5mg/ml 2ml vial IV ONE (15:00)
[2025-06-06] MEDS: midazolam 1 mg/ML 2ml injection ONE ×3 (17:58→18:02)
[2025-06-06] MEDS: fentaNYL/PF 50MCG/1 ML 2ML syringe IV ONE (18:00)
--- NOTE | 2025-06-06 18:54 | PROGRESS NOTE- Residence ---
Progress Note - Resident Providers to CC Resident Creating Document: GIL MONTANO, RES ~ Antibiotic Timeout Antibiotic Ordered?: Yes Subjective Patient is seen and examined at the bedside today. She denied taking her losartan in the morning today as she was anxious that it might drop her blood pressure again. She denied complain of any new concerns today. There were no acute overnight events reported. We had a thorough discussion with the patient regarding her MRI findings. Objective Vital Signs Date Time Temp Pulse Resp B/P (MAP) Pulse Ox O2 Delivery O2 Flow Rate FiO2 06/06/25 11:00 97.3 93 12 94/63 (73) 99 Room Air 06/05/25 08:30 0.0 21 Result Diagram: 06/06/2560506/06/25605 General: Awake, alert in no acute distress. HEENT: PERRLA, clear sclera, conjunctiva pink Neck: No masses or lymphadenopathy Respiratory: Bilateral airway entry present. No adventitious breath sounds heard. CVS: S1-S2 heard. Regular rate and rhythm. No murmurs or rubs heard. Abdomen: Soft nontender. Bowel sounds present. Extremities: No cyanosis clubbing or edema. Neurology: No focal motor or sensory deficits. Psychiatric: Normal mood and affect. Musculoskeletal: No deformities. Coagulation Studies Laboratory Tests Test 06/05/25 06:46 06/06/25 06:06 Activated Partial Thromboplast Time 27 SECONDS (22-32) Prothrombin Time 11.7 SECONDS (9.0-12.0) INR International Normalized Ratio 1.2 INR Coagulation Comments Assessment Assessment 39-year-old female with a history of ischemic stroke, heart failure with reduced ejection fraction is admitted in the hospital for evaluation and management of generalized weakness, dizziness. Plan Plan Acute ischemic stroke. Most likely embolic stroke. Repeat MRI from yesterday shows 8 mm acute infarct in the right frontal lobe and 8 mm acute posterior insular infarct. There is also 5 mm cerebellar tonsillar ectopia. In view of the patient's new ischemic spots we have consulted the tele neurologist again today. Dr. Cohen has seen the patient and recommended to evaluate the patient for hypercoagulability and also recommended for a NATHALIA. As per the tele neurologist recommendations we have continued the patient on aspirin and Eliquis. He is also getting atorvastatin [address] López for a NATHALIA. Patient most likely get a NATHALIA today. We will follow up with the recommendations accordingly. The patient also had an MRI of the C-spine which was significant for C4-C5 C6 protrusion and C5-C6 neural foraminal narrowing. Neurosurgeon Dr. Ac Morrow has been consulted. We will follow up accordingly as per his recommendations. We will follow up with the anticardiolipin antibody, beta two glycoprotein, factor five Leiden, prothrombin. Patient is on Eliquis and hence currently not being evaluated for protein C, protein S deficiency, antithrombin activity. Will require outpatient follow up. Patient was treated with Tenecteplase for her acute ischemic stroke on the 05/24/2025. Acute congestive heart failure with reduced ejection fraction NYHA class 2, aha stage C Dilated cardiomyopathy Symptomatic hypotension ProBNP 1373 Echocardiography from 05/22/2025 shows a left ventricular ejection fraction of 20%. There is severe dilation of the left ventricle, moderate dilatation of the left atrium. The patient does not appear to be in acute fluid overload. The patient is not able to tolerate her current GDMT medications-Entresto and metoprolol succinate 25 mg p.o. She has been developing severe symptomatic hypotension with minimal dosing of the medications and hence we have discontinued Entresto and metoprolol. Discontinued Lasix 20 mg p.o. daily in view of her euvolemia and hypotension. Started the patient on Jardiance 10 mg daily and losartan 12.5 mg p.o. daily. Hold losartan for blood pressure less than 100 mmHg. We have consulted Dr. López for NATHALIA as recommended by the neurologist. Appreciate recommendations. We will continue to closely monitor the patient's blood pressure. Recommended to maintain compliance with her life vest. CODE STATUS: Full code DVT prophylaxis: Eliquis GI prophylaxis: None Diet: Heart healthy diet Disposition: Awaiting NATHALIA and hypercoagulable panel. Consulted cardiology, neurology. Anticipate discharge home in the next 24-48 hours. Gil Montano MD Internal Medicine Resident, PGY-3 Date of Service: Jun 06, 2025 Billing Provider: LARRY KING MD,GIL OSBORN, RES Jun 06, 2025 18:54
[2025-06-07 02:00] VITALS: BP 95/57; PULSE 61; RESP 18; TEMP 97.1; O2SAT 95
[2025-06-07 08:48] VITALS: BP_SYST 95; PULSE 67
[2025-06-07 08:58] LABS: MEAN PLATELET VOLUME 10.5 FL (7.4-10.4); RED CELL DISTRIBUTION WIDTH 13.6 % (11.5-14.5)
[2025-06-07 09:00] LABS: INR 1.1 INR
[2025-06-07 09:17] LABS: CREATININE 0.67 MG/DL (0.40-0.90); PHOSPHORUS 4.5 MG/DL (2.3-4.5); TOTAL CARBON DIOXIDE 29.1 MMOL/L (24-32); eCRCL 100 ML/MIN; eGFR > 90 ML/MIN
[2025-06-07 09:23] LABS: CREATININE 0.69 MG/DL (0.40-0.90); TOTAL CARBON DIOXIDE 26.3 MMOL/L (24-32); eCRCL 98 ML/MIN; eGFR > 90 ML/MIN
[2025-06-07 09:43] LABS: PLATELET ESTIMATE NORMAL
[2025-06-07 09:44] LABS: GIANT PLATELET FEW; LARGE PLATELETS MODERATE
--- NOTE | 2025-06-07 17:28 | DISCHARGE SUMMARY-Residence ---
Discharge Summary Providers to CC Resident Creating Document: JOMAR RIVERA CARIE OSBORN ~ Discharge Summary Admission Diagnosis: HEART FAILURE Hospital Course DATE OF ADMISSION: 06/02/2025 DATE OF DISCHARGE: 06/07/2025 Cervical MRI: IMPRESSION: C4-C5 right paracentral disc protrusion abuts and mildly flattens the cord. C5-C6 posterior disc osteophyte complex approaches and may abut the cord. Moderate right C5-C6 neuroforaminal narrowing. Head MRI: IMPRESSION: 8mm acute right frontal fridal junction cortical/white matter infarct. 8 mm acute right frontal cortical infarct. 8 mm acute right posterior insular cortex infarct. 5 mm cerebellar tonsillar ectopia. CT chest: IMPRESSION: The lobulated right heart border seen on chest radiograph is caused by prominent epicardial fat and requires no dedicated follow-up. The left ventricle of the heart is significantly enlarged. Echocardiogram is recommended to evaluate for possible aortic valvular insufficiency. NATHALIA: Preliminary report: NATHALIA PROBE PASSED BY: Brynn LÓPEZ MD Zookeeper is Brynn López MD Previous echo 05/22/25 [facility] 20% EF ; m MR tr TR LEFT VENTRICLE LV appears dilated with severely reduced function. There appears to be a mobile echogenic mass that appears to be intertwined with the trabeculation in the apex and papillary. LVEF is 20%. RIGHT VENTRICLE RV appears normal in size with normal contractility. ATRIA Left atrial appendage is visualized in multiple planes and appears normal without debris. Left upper pulmonary vein identified and isolated by 2D. Saline study was performed with IV injections of agitated normal saline at rest, with cough, and with valsalva. Negative saline study for right to left flow. AORTIC VALVE Grossly normal AV appears without thrombus. Limited, focused exam. MITRAL VALVE Grossly normal MV appears without thrombus. Limited, focused exam. TRICUSPID VALVE Grossly normal TV appears without thrombus. Limited, focused exam. PULMONIC VALVE Grossly normal PV appears without thrombus. Limited, focused exam. PERICARDIUM There is no pericardial effusion. Discharge Diagnosis\Comment: Acute ischemic stroke Most likely embolic stroke Left ventricular thrombus Acute congestive heart failure with reduced ejection fraction NYHA class two, aha stage C Dilated cardiomyopathy Symptomatic hypotension Operations\Procedures: Transesophageal echocardiography by Dr. López Consultants: Cardiology-Dr. López Neurology: Dr. Steve Harrison, Dr. Veronica Cohen Complications: None Condition on DC: Stable New Medications: Empagliflozin (Jardiance) 10 Mg Tablet 10 MG PO DAILY for 30 Days, #30 TAB Losartan Potassium (Losartan Potassium) 25 Mg Tablet 12.5 MG PO DAILY for 30 Days, #15 TAB Continued Medications: Apixaban (Eliquis) 5 Mg Tablet 5 MG PO BID, #60 TAB Aspirin (Ecotrin*) 81 Mg Tablet.dr 1 TAB PO DAILY for 30 Days, #30 TAB.SR Atorvastatin Calcium (Atorvastatin Calcium) 20 Mg Tablet 40 MG PO HS for 90 Days, #90 TAB Hydroxyzine Hcl (Atarax) 25 Mg Tablet 1 TAB PO Q6H PRN for anxiety for 10 Days, #60 TAB 0 Refills Multivitamin (Multi Vitamin Daily) 1 Each Tablet 1 TAB PO DAILY for 30 Days, #30 TAB 0 Refills Discontinued Medications: Metoprolol Succinate (Metoprolol Succinate) 25 Mg Tab.sr.24h 25 MG PO DAILY for 30 Days, #30 TAB.SR Potassium Chloride (K-Dur) 10 Meq Tab.prt.sr 1 TAB PO DAILY for 30 Days, #30 TAB 0 Refills Sacubitril/Valsartan (Entresto 24 mg-26 mg Tablet) 24 Mg-26 Mg Tablet 1 TABLET PO BID for 30 Days, #60 TAB Discharge Summary: 39 years old female with recent history of ischemic stroke on aspirin, Eliquis and atorvastatin and with a history of acute congestive heart failure with a reduced ejection fraction due to dilated cardiomyopathy presented to the ED with chief complaint of noticing spots in her visual field, lightheadedness, weakness that lasted for 1 hour while she was at work. He also complains of nausea and vomitings. Patient initially also complained of chest pain that radiated both eyes and reported increased fatigue and generalized weakness since she was started on heart failure medications. Prior to this admission the patient was admitted for an acute ischemic stroke in the 05/24/2025 and was found to have ac iroquois ischemic stroke. She was treated with tenecteplase and was also started on GDM T fot her heart failure with a metoprolol, Entresto and was discharged home to follow up with Dr. Lopez. The patient was closely evaluated and was found to have significantly low blood pressures when she was taking her Entresto and metoprolol. The patient's blood pressure was dropping as low as 88/61. In view of the patient's significant hypotension the patient GDMT was adjusted accordingly. Later she was started on Jardiance and losartan 12.5 mg and the on-call balance bridge assembler were consulted. Initially at the time of admission the neurologist recommended no repeat MRI of the head as the patient recently had the MRI and continue the patient on Eliquis, aspirin and atorvastatin. During the course of the hospitalization the patient also reported some left hand numbness and weakness that was transient and started all of a sudden at night. A repeat MRI of the head and cervical spine was done. The repeat MRI of the head showed new areas of ischemic stroke most likely embolic. The neurologist were consulted again who recommended that the patient get a NATHALIA done to check for any endocarditis or cardiac thrombus leading to the embolic strokes. The patient had a NATHALIA done by Dr. López which showed a mass most likely a left ventricular thrombus. They recommended that the patient to be continued on Eliquis, aspirin and atorvastatin and be discharged with a close follow up in the clinic. The patient was also recommended to follow up with the hematology oncologist and get a referral from her primary care physician at [facility] to workup for underlying hypercoagulable state. The patient was also recommended to follow up with the neurosurgeon for her cervical spine findings that was observed on the MRI of the cervical spine. Her condition was stable at the time of discharge. She is being discharged home with home health care services. Advised at discharge: Follow up with the PCP within 2-3 days. Follow up with the balance bridge assembler Dr. López within the next one week. She has a an appointment within one week at Dr. López office. Check blood pressure at home closely. Do not take losartan for a systolic blood pressure of less than 100 mmHg. Get a referral for a Safety Risk Lead as recommended to follow up the evaluation of hypercoagulability. Get a referral for a psychiatrist in view of her previous history and in view of her current episodes of anxiety. Case of any emergency for worsening symptoms like dizziness, weakness- symptomatic hypotension call 911 or return to the ER immediately. Get referral for cardio pulmonary rehabilitation. Use Incentive spirometer for pulmonary rehabilitation. Laboratory Tests Test 06/06/25 06:06 06/06/25 18:31 06/07/25 07:10 06/07/25 07:41 White Blood Count 7.5 X10'3 7.2 X10'3 Red Blood Count 4.90 X10'6 5.00 X10'6 Hemoglobin 14.2 g/dl 14.3 g/dl Hematocrit 41.8 % 42.4 % Mean Corpuscular Volume 85.3 FL 84.8 FL Mean Corpuscular Hemoglobin 29.0 PG 28.5 PG Mean Corpuscular Hemoglobin Concent 33.9 g/dL 33.6 g/dL Red Cell Distribution Width 13.6 % 13.6 % Platelet Count 229 X10'3 239 X10'3 Mean Platelet Volume 10.1 FL 10.5 FL Neutrophils (%) (Auto) 59.5 % 61.9 % Lymphocytes (%) (Auto) 26.4 % 27.4 % Monocytes (%) (Auto) 13.0 % 9.5 % Eosinophils (%) (Auto) 0.3 % 0.5 % Basophils (%) (Auto) 0.8 % 0.7 % Neutrophils # (Auto) 4.5 X10'3 4.5 X10'3 Lymphocytes # (Auto) 2.0 X10'3 2.0 X10'3 Monocytes # (Auto) 1.0 X10'3 0.7 X10'3 Eosinophils # (Auto) 0.0 X10'3 0.0 X10'3 Basophils # (Auto) 0.1 X10'3 0.1 X10'3 CBC Comment Prothrombin Time 11.7 SECONDS 11.6 SECONDS INR International Normalized Ratio 1.2 INR 1.1 INR Coagulation Comments Sodium Level 139 MMOL/L 142 MMOL/L 140 MMOL/L Potassium Level 3.8 MMOL/L 3.7 MMOL/L 3.8 MMOL/L Chloride Level 102 MMOL/L 104 MMOL/L 104 MMOL/L Carbon Dioxide Level 24.7 MMOL/L 26.3 MMOL/L 29.1 MMOL/L Anion Gap 12 12 7 Blood Urea Nitrogen 12 MG/DL 15 MG/DL 14 MG/DL Creatinine 0.61 MG/DL 0.69 MG/DL 0.67 MG/DL Estimated GFR/1.73 m2 > 90 ML/MIN > 90 ML/MIN > 90 ML/MIN BUN/Creatinine Ratio 19.7 21.7 20.9 Glucose Level 85 MG/DL 90 MG/DL 93 MG/DL Calcium Level 8.7 MG/DL 8.8 MG/DL 8.8 MG/DL Phosphorus Level 4.4 MG/DL 4.5 MG/DL Magnesium Level 2.0 MG/DL 2.1 MG/DL Total Bilirubin 0.3 MG/DL 0.3 MG/DL 0.3 MG/DL Aspartate Amino Transf (AST/SGOT) 18 U/L 16 U/L 15 U/L Alanine Aminotransferase (ALT/SGPT) 27 U/L 25 U/L 21 U/L Alkaline Phosphatase 77 IU/L 76 IU/L 77 IU/L Total Protein 6.7 G/DL 7.0 G/DL 6.9 G/DL Albumin 3.5 G/DL 3.7 G/DL 3.7 G/DL Globulin 3.2 G/DL 3.3 G/DL 3.2 G/DL Albumin/Globulin Ratio 1.1 1.1 1.2 Chemistry Comments Platelet Estimate Normal Large Platelets Moderate Giant Platelets Few Red Blood Cell Morphology Normal Basophilic Stippling Examination at discharge: General: Awake, alert in no acute distress. HEENT: PERRLA, clear sclera, conjunctiva pink Neck: No masses or lymphadenopathy Respiratory: Bilateral airway entry present. No adventitious breath sounds heard. CVS: S1-S2 heard. Regular rate and rhythm. No murmurs or rubs heard. Abdomen: Soft nontender. Bowel sounds present. Extremities: No cyanosis clubbing or edema. Neurology: No focal motor or sensory deficits. Psychiatric: Normal mood and affect. Musculoskeletal: No deformities. *Problems/Diagnosis: (1) Acute ischemic stroke (2) Embolic stroke (3) Left ventricular thrombus (4) Acute systolic CHF (congestive heart failure) Status: Acute (5) Anxiety and depression (6) Palpitations Status: Acute (7) Generalized weakness Status: Acute Total Time Spent on D/C: > 30 Minutes Date of Service: Jun 07, 2025 Billing Provider: LARRY KING MD,JOMAR OSBORN, RES Jun 07, 2025 17:21
--- NOTE | 2025-06-07 19:40 | CARDIOLOGY REPORT ---
APPROVED REPORT EXAM: Focused limited transesophageal echocardiogram with color flow Doppler. Patient Location: 301 Blood Pressure: 107/74 mmHg Heart Rate: 118 bpm Rhythm: NSR Indications Limited to evaluate for thrombus/source of cardiac embolus Chest Pain CHF Hx stroke NATHALIA PROBE PASSED BY: Brynn LÓPEZ MD Order Picker/Assembler is Brynn López MD Previous echo 05/22/25 [facility] 20% EF ; m MR tr TR LEFT VENTRICLE LV appears dilated with severely reduced function. There appears to be a mobile echogenic mass that a ppears to be intertwined with the trabeculation in the apex and papillary. LVEF is 20%. RIGHT VENTRICLE RV appears normal in size with normal contractility. ATRIA Left atrial appendage is visualized in multiple planes and appears normal without debris. Left upper pulmonary vein identified and isolated by 2D. Saline study was performed with IV injections of agitat ed normal saline at rest, with cough, and with valsalva. Negative saline study for right to left flow . AORTIC VALVE Grossly normal AV appears without thrombus. Limited, focused exam. MITRAL VALVE Grossly normal MV appears without thrombus. Limited, focused exam. TRICUSPID VALVE Grossly normal TV appears without thrombus. Limited, focused exam. PULMONIC VALVE Grossly normal PV appears without thrombus. Limited, focused exam. PERICARDIUM There is no pericardial effusion. CONCLUSION LV appears dilated with severely reduced function. There appears to be a mobile echogenic mass that a ppears to be intertwined with the trabeculation in the apex and papillary. LVEF is 20%. RV appears no rmal in size with normal contractility. Left atrial appendage is visualized in multiple planes and ap pears normal without debris. Left upper pulmonary vein identified and isolated by 2D. Saline study wa s performed with IV injections of agitated normal saline at rest, with cough, and with valsalva. Nega tive saline study for right to left flow. Grossly normal AV appears without thrombus. Limited, focuse d exam. Grossly normal MV appears without thrombus. Limited, focused exam. Grossly normal TV appears without thrombus. Limited, focused exam. There is no pericardial effusion. Conclusion LV appears dilated with severely reduced function. There appears to be a mobile echogenic mass that a ppears to be intertwined with the trabeculation in the apex and papillary. LVEF is 20%. RV appears normal in size with normal contractility. Left atrial appendage is visualized in multiple planes and appears normal without debris. Left upper pulmonary vein identified and isolated by 2D. Saline study was performed with IV injections of agitat ed normal saline at rest, with cough, and with valsalva. Negative saline study for right to left flow . Grossly normal AV appears without thrombus. Limited, focused exam. Grossly normal MV appears without thrombus. Limited, focused exam. Grossly normal TV appears without thrombus. Limited, focused exam. There is no pericardial effusion.
== END 2025-06-07 15:46 | disposition home health service (06) | DRG 64 ==
LOC: ER 09:52 → ED HOLD 19:33 → EDBEDREQ 20:10 → PCU 3S 21:12
PROVIDERS: ADMIT Internal Medicine; ATTEND Family Medicine
PROC: B24BZZ4 Ultrasonography of Heart with Aorta, Transesophageal (ICD-10-PCS; principal; 2025-06-07)
DX: I63.9 Cerebral infarction, unspecified (principal); I50.23 Acute on chronic systolic (congestive) heart failure; I42.0 Dilated cardiomyopathy; I95.9 Hypotension, unspecified; R29.701 NIHSS score 1; I11.0 Hypertensive heart disease with heart failure; Z79.899 Other long term (current) drug therapy; Z79.01 Long term (current) use of anticoagulants; Z79.82 Long term (current) use of aspirin; Z87.891 Personal history of nicotine dependence
CPT/HCPCS: 36415; 70450; 71045; 71260; 72141; 80048; 80053; 80061; 80305; 81003; 81479; 83605; 83735; 83880; 83891; 83894; 83898; 84100; 84145; 84443; 84484; 84703; 85008; 85025; 85610; 85730; 86038; 86146; 86147; 87081; 93005; 93312; 93325; 97161; 97530; 99285; A4620; G0378; J2250; J2405; J3010; J7030; J7040; Q0177; Q9967

== ENCOUNTER 2025-07-10 08:02 | Emergency (ER) | payer BC ==
[~2025-07-10] VITALS: Ht 165.1 cm; Wt 77.3 kg
[~2025-07-10 08:02] MED LIST changes: -FURO-150 PO; +LOSA25TA41 PO; -METO-395 PO; -POTA-206 PO; -SACU1TAB PO
--- NOTE | 2025-07-10 08:15 | ELECTROCARDIOGRAPH REPORT ---
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
[2025-07-10 08:27] LABS: MEAN PLATELET VOLUME 9.7 FL (7.4-10.4); RED CELL DISTRIBUTION WIDTH 13.8 % (11.5-14.5)
--- NOTE | 2025-07-10 08:41 | RADIOLOGY REPORT ---
CHEST RADIOGRAPH Indication: CP Technique: Single frontal view of the chest was obtained Comparison: CT CT CHEST on DOS: 06/02/25, DI CHEST,SINGLE VIEW on DOS: 06/02/25, DI CHEST,SINGLE VIEW on DOS: 05/24/25, DI CHEST,SINGLE VIEW on DOS: 05/21/25 FINDINGS: Lines and Tubes: None Lungs: No focal consolidation. Pleura: No effusion. No pneumothorax. Cardiomediastinal contours: Unremarkable Bones: No acute osseous abnormality. IMPRESSION: No acute cardiopulmonary disease.
[2025-07-10 08:50] LABS: CREATININE 0.52 MG/DL (0.40-0.90); PRO BRAIN NATRIURETIC PEPTIDE 2293 PG/ML (0-125); TOTAL CARBON DIOXIDE 22.0 MMOL/L (24-32); eCRCL 128 ML/MIN; eGFR > 90 ML/MIN
--- NOTE | 2025-07-10 10:20 | Physician Documentation ---
History of Present Illness General Chief Complaint: Rapid Heartbeat Stated Complaint: SEE CHIEF Time Seen by MD: 09:35 Primary Medical Doctor: [facility] History of Present Illness Initial Comments The patient is a 40-year-old female who was in her usual state of good health until the beginning of May. Since then she has had three admissions, diagnosed with congestive heart failure and reduced ejection fraction and had two MRI documented strokes. She was admitted on the through the here with congestive heart failure and a reduced ejection fraction and discharged on a LifeVest. She was again in admitted from the through the and had a documented stroke treated with tenecteplase. Her 3rd admission was from the through the 08 of June for congestive heart failure and hypotension when her Entresto and metoprolol were discontinued and she was started four days ago on carvedilol. The reason she came in today was because her life vest alarm went off once last night and twice this morning. She was asymptomatic during this time. No shock was delivered. The patient reports that she took her pulse and her heart rate was in the 120s when the alarm went off this morning. Medication Reconciliation Allergies: Coded Allergies: No Known Allergies (Unverified , 07/10/25) Scheduled Apixaban (Eliquis), 5 MG PO BID Aspirin (Ecotrin*), 1 TAB PO DAILY Atorvastatin Calcium (Atorvastatin Calcium), 40 MG PO HS Empagliflozin (Jardiance), 10 MG PO DAILY Losartan Potassium (Losartan Potassium), 12.5 MG PO DAILY Multivitamin (Multi Vitamin Daily), 1 TAB PO DAILY, (Reported) Scheduled PRN Hydroxyzine Hcl (Atarax), 1 TAB PO Q6H PRN for anxiety Past Medical History Past Medical History: No Pertinent History Review of Systems ROS The 10 system review was negative except as noted in the HPI. Physical Exam Physical Exam Vital Signs: Temperature: 97.5, Source: Temporal, Heart Rate: 89, Respiratory Rate: 18, BP: 117/84, Pulse Oximetry: 98, Weight: 77.270 Physical Exam Physical Exam Vitals and nursing note reviewed. Constitutional: General: Patient is awake, alert, oriented x 4 in no acute distress and well appearing. Speech is clear and lucid. Appearance: Normal appearance. Patient is not ill-appearing, toxic-appearing or diaphoretic. HENT: Head: Normocephalic and atraumatic. Mouth/Throat: Mouth: Mucous membranes are moist. Pharynx: Oropharynx is clear. Eyes: General: No scleral icterus. Extraocular Movements: Extraocular movements intact. Pupils: Pupils are equal, round, and reactive to light. Neck: Supple, no Kernig or Brudzinski sign. Cardiovascular: Rate and Rhythm: Normal rate and regular rhythm. Heart sounds: No murmur heard. Pulmonary: Effort: No respiratory distress. Breath sounds: No wheezing, rhonchi or rales. Abdominal: General: There is no distension. Palpations: There is no fluid wave, hepatomegaly or mass. Tenderness: There is no abdominal tenderness. There is no guarding. Musculoskeletal: General: No swelling or deformity. Skin: Coloration: Skin is not jaundiced. Findings: No erythema or rash. Neurological: Mental Status: Patient is alert. Progress Results/Orders Results/Orders Orders - FRANDY MURPHY MD Chest,Single View (07/10/25 08:22) Monitor (07/10/25 08:11) Saline Lock (07/10/25 08:11) Oxygen (07/10/25 08:11) Completed Orders - FRANDY MURPHY MD Chest,Single View (07/10/25 08:22) Cbc/Diff (07/10/25 08:11) BMP (07/10/25 08:11) PBNP (07/10/25 08:11) Electrocardiogram (07/10/25 08:11) Hs Troponin I W Calculations (07/10/25 08:11) Hs Troponin I W Calculations (07/10/25 10:11) Vital Signs 07/10/25 07/10/25 07/10/25 07/10/25 08:07 09:40 09:45 10:30 Temp 97.5 Pulse 89 85 87 Resp 18 16 12 16 B/P (MAP) 117/84 111/71 (84) 109/70 (83) Pulse Ox 98 96 96 O2 Flow Rate 0 0 07/10/25 07/10/25 10:40 11:27 Pulse 89 Resp 12 B/P (MAP) 117/79 (92) Pulse Ox 97 97 O2 Delivery Room Air* O2 Flow Rate 0 0 FiO2 21 Laboratory Tests Test 07/10/25 08:18 07/10/25 10:27 White Blood Count 13.5 H Red Blood Count 5.23 Hemoglobin 14.8 Hematocrit 44.9 Mean Corpuscular Volume 85.9 Mean Corpuscular Hemoglobin 28.3 Mean Corpuscular Hemoglobin Concent 32.9 L Red Cell Distribution Width 13.8 Platelet Count 325 Mean Platelet Volume 9.7 Neutrophils (%) (Auto) 79.8 H Lymphocytes (%) (Auto) 14.3 L Monocytes (%) (Auto) 4.6 Eosinophils (%) (Auto) 0.8 Basophils (%) (Auto) 0.5 Neutrophils # (Auto) 10.8 H Lymphocytes # (Auto) 1.9 Monocytes # (Auto) 0.6 Eosinophils # (Auto) 0.1 Basophils # (Auto) 0.1 CBC Comment Sodium Level 141 Potassium Level 4.2 Chloride Level 109 H Carbon Dioxide Level 22.0 L Anion Gap 10 Blood Urea Nitrogen 13 Creatinine 0.52 Estimated GFR/1.73 m2 > 90 BUN/Creatinine Ratio 25.0 H Glucose Level 103 Calcium Level 8.6 Troponin I High Sensitivity 11 10 Pro-B-Type Natriuretic Peptide 2293 H Albumin 3.7 Chemistry Comments Troponin I High Sens Percent Delta 9 Troponin I Hi Sens Absolute Change -1 Medical Decision Making Findings I reviewed the tracings derived from the patient's LifeVest with Dr. Brynn López and he recommended prescribing amiodarone 200 mg b.i.d. and discharge home. I reviewed this with the patient who agrees with this plan and I am going to discharge her as per Dr. López's request. Departure Disposition: HOME / SELF CARE / HOMELESS Impression: Primary Impression: Arrhythmia Condition: Stable Referrals: NO PRIMARY CARE PROVIDER (PCP) Prescriptions Amiodarone Hcl (Cordarone) 200 Mg Tablet 200 MG PO BID, #60 TAB Prov: FRANDY MURPHY MD 07/10/25 Education Educated: Patient Educated regarding: diagnosis, treatment, need for follow up Signature Scribe Signature: . Attestation: FRANDY MCCOY MD Jul 10, 2025 10:20
[2025-07-10] MEDS ORDERED: AMIO200T76 PO (14:55)
[2025-07-10 18:30] VITALS: BP 134/85; PULSE 69; RESP 14; TEMP 97.5; O2SAT 99
== END 2025-07-10 18:32 | disposition home or self-care (01) ==
LOC: ER 08:03
DX: I49.9 Cardiac arrhythmia, unspecified (principal); I50.9 Heart failure, unspecified; Z79.899 Other long term (current) drug therapy; Z79.82 Long term (current) use of aspirin
CPT/HCPCS: 36415; 71045; 80048; 83880; 84484; 85025; 93005; 99285

== ENCOUNTER 2025-07-11 16:50 | Emergency (ER) | payer BC ==
[~2025-07-11] VITALS: Ht 165.1 cm; Wt 77.3 kg
[~2025-07-11 16:50] MED LIST changes: +AMIO200T76 PO
[2025-07-11 17:13] VITALS: TEMP 96.9
--- NOTE | 2025-07-11 17:24 | ELECTROCARDIOGRAPH REPORT ---
[facility] Test Date: 2025-07-11 Test Time: 16:55:39 Pat Name: DIANE REYES Department: EMERGENCY ROOM Room: Gender: F Director Property: VELMA : 1985 Requested By: DEPARTMENT EMERGENCY Order Number: [id number] Reading MD: Measurements Intervals [place] Rate: 102 P: 71 [place]: 155 QRS: 50 QRSD: 175 T: -10 QT: 387 QTc: 505 Interpretive Statements Sinus tachycardia Probable left atrial enlargement IVCD, consider atypical LBBB Baseline wander in lead(s) II,III,aVF,V4,V5 Please click the below link to view image of tracing.
[2025-07-11 17:37] LABS: MEAN PLATELET VOLUME 9.9 FL (7.4-10.4); RED CELL DISTRIBUTION WIDTH 13.8 % (11.5-14.5)
--- NOTE | 2025-07-11 17:48 | RADIOLOGY REPORT ---
CHEST RADIOGRAPH Indication: CP Technique: DI CHEST,SINGLE VIEW Comparison: None FINDINGS: The cardiac silhouette is enlarged. The lungs demonstrate perihilar, left basilar airspace opacities. The pulmonary vasculature is prominent. There is no pleural effusion. There is no pneumothorax. IMPRESSION: As above
[2025-07-11 17:54] LABS: CREATININE 0.67 MG/DL (0.40-0.90); PRO BRAIN NATRIURETIC PEPTIDE 2278 PG/ML (0-125); TOTAL CARBON DIOXIDE 23.8 MMOL/L (24-32); eCRCL 99 ML/MIN; eGFR > 90 ML/MIN
--- NOTE | 2025-07-11 18:12 | Physician Documentation ---
History of Present Illness ~ Chief Complaint: See Chief Complaint Stated Complaint: CHEST PAIN Time Seen by MD: 17:54 Primary Medical Doctor: [facility] HPI Patient presents to the emergency room for evaluation of her life vest beeping. She was seen here yesterday for similar complaint. Dr. López was consulted and the plan was to add amiodarone 200mg bid to her regimen. Patient filled the medication however she never took it because there was a warning labile on it stating that that has medicine should be started in a hospital setting therefore she had not started. Currently she is asymptomatic but does state that she has intermittent chest pains on the left sharp in nature and intermittent shortness of breath. She was diagnosed with a cardiac thrombus by transesophageal echo previously in his concerned that it may have progress. She is on Eliquis. She has also been suffering from stroke all of the last couple of months. And had to be readmitted several times for further investigations. She is also being treated for congestive heart failure. Previous records reviewed show that patient was admitted May 21 through the for chest pain with a negative Lexiscan and diagnosed with congestive heart failure discharged with a life vest. May 24 through the she came in with slurred speech in his neck to place was administered for confirm stroke. Patient then came back on the through the 07 of June and diagnosed again with a stroke then had a transesophageal echo that diagnosed with a thrombus. She came in at that time as she was not feeling well. She attributes her not feeling well to metoprolol and this was changed to carvedilol. She states she has been gaining to feel that the may be having the same side effects that has metoprolol. The cause of for heart failure remains idiopathic although she does smoke both tobacco and marijuana Medication Reconciliation Allergies: Coded Allergies: No Known Allergies (Unverified , 07/11/25) Scheduled Amiodarone Hcl (Cordarone), 200 MG PO BID Apixaban (Eliquis), 5 MG PO BID Aspirin (Ecotrin*), 1 TAB PO DAILY Atorvastatin Calcium (Atorvastatin Calcium), 40 MG PO HS Empagliflozin (Jardiance), 10 MG PO DAILY Losartan Potassium (Losartan Potassium), 12.5 MG PO DAILY Multivitamin (Multi Vitamin Daily), 1 TAB PO DAILY, (Reported) Scheduled PRN Hydroxyzine Hcl (Atarax), 1 TAB PO Q6H PRN for anxiety Past Medical History Past Medical History: No Pertinent History, CVA/TIA/Stroke, Congestive Heart Failure Patient History: Cardiomyopathy Paternal grandfather FH: CVA (cerebrovascular accident) Maternal grandmother Paternal grandmother (x 3) FH: colon cancer Maternal grandmother FH: heart disease FH: hypertension Paternal grandmother Review of Systems ROS All review of systems negative except as per HPI Physical Exam Vital Signs: Temperature: 96.9, Source: Temporal, Heart Rate: 95, Respiratory Rate: 16, BP: 106/72, Pulse Oximetry: 100, Weight: 77.270 Oxygen Flow Rate: 0 Physical Exam General: Patient is awake, alert, oriented x4 in no acute distress and well ap pearing.~ Head: Normocephalic and atraumatic. Eyes: Conjunctival normal. EOMI. PERRL. ENT: Mucous membranes moist. Neck: Supple, trachea is midline. Chest: Clear to auscultation bilaterally without rales, rhonchi, or wheezes. There is no accessory muscle use or retractions. Cardiac: RRR without murmurs, gallops, or rubs. Abd: Soft, nondistended, nontender, with normoactive bowel sounds. No guarding, rebound, or rigidity. Extremities: Normal strength. Normal range of motion. No deformities or edema. Progress Progress Note Consulted with aircraft engineer and briefly reviewed patient's case. He confirmed that she had not start the amiodarone and then re-emphasized that she needs to start the amiodarone. Results/Orders Results/Orders Completed Orders - RODERICK DELVALLE MD Amiodarone Tablet (Cordarone Tablet) (07/11/25 18:15) D-Dimer (07/11/25 18:16) Vital Signs 07/11/25 07/11/25 07/11/25 07/11/25 17:13 18:09 18:10 19:02 Temp 96.9 Pulse 95 85 75 Resp 16 14 16 16 B/P (MAP) 106/72 110/77 (88) 95/66 (76) Pulse Ox 100 96 96 O2 Flow Rate 0 0 0 07/11/25 20:13 Pulse 86 Resp 14 B/P (MAP) 101/70 (80) Pulse Ox 97 O2 Flow Rate 0 Laboratory Tests Test 07/11/25 16:59 07/11/25 19:24 07/11/25 20:00 White Blood Count 11.3 H Red Blood Count 5.25 Hemoglobin 14.8 Hematocrit 45.1 H Mean Corpuscular Volume 85.8 Mean Corpuscular Hemoglobin 28.1 Mean Corpuscular Hemoglobin Concent 32.7 L Red Cell Distribution Width 13.8 Platelet Count 336 Mean Platelet Volume 9.9 Neutrophils (%) (Auto) 71.5 Lymphocytes (%) (Auto) 22.1 Monocytes (%) (Auto) 5.4 Eosinophils (%) (Auto) 0.5 Basophils (%) (Auto) 0.5 Neutrophils # (Auto) 8.1 H Lymphocytes # (Auto) 2.5 Monocytes # (Auto) 0.6 Eosinophils # (Auto) 0.1 Basophils # (Auto) 0.1 CBC Comment D-Dimer < 0.19 D-Dimer Comment Sodium Level 140 Potassium Level 4.5 Chloride Level 107 Carbon Dioxide Level 23.8 L Anion Gap 9 Blood Urea Nitrogen 16 Creatinine 0.67 Estimated GFR/1.73 m2 > 90 BUN/Creatinine Ratio 23.9 H Glucose Level 95 Calcium Level 9.0 Troponin I High Sensitivity 11 11 12 Troponin I High Sens Percent Delta 10 0 9 Troponin I Hi Sens Absolute Change 1 0 1 Pro-B-Type Natriuretic Peptide 2278 H Albumin 3.8 Chemistry Comments EKG/XRAY/CT/US/VASC/MRI EKG : Additional Comment EKG interpreted by myself shows time of 1655, rate 102, sinus tachycardia, normal axis, left bundle-branch block Chest X-Ray : Additional Comments Exam: CHEST,SINGLE VIEW CHEST RADIOGRAPH Indication: CP Technique: DI CHEST,SINGLE VIEW Comparison: None FINDINGS: The cardiac silhouette is enlarged. The lungs demonstrate perihilar, left basilar airspace opacities. The pulmonary vasculature is prominent. There is no pleural effusion. There is no pneumothorax. IMPRESSION: As above Medical Decision Making Findings Patient presents to the emergency room for evaluation of BP and of her life vest as per HPI. Interrogated her vest, spoke with aircraft engineer. That has seems one of her leads that has sensing her heart rate wrong/incorrectly in his counting a peaked T-wave as a heartbeat leading to inaccurate warning about heart rate being a proximally 180. She stopped the device from firing with a button. We have contacted the manufacture of the [place] they we will be making adjustments within 24 hours regarding her abnormal lead. Hospital Cleaning Specialist still wants her to take amiodarone. I discussed with him specifically why we would add amiodarone if it is the device that has malfunctioning and he states in abundance of precaution and if she does not feel comfortable taking amiodarone twice a day to take it once a day. This was discussed with the patient. She has excellent follow up this week. Differential Dx:Considerations: Include: angina, aortic dissection, chest wall pain, cholelithiasis, CHF, costochondritis, esophageal reflux/spasm, gastritis, herpes zoster, myocardial infarction, pericarditis, pleuritis, pancreatitis, pneumonia, pneumothorax, pulmonary embolus, other Departure Disposition: 01 HOME / SELF CARE / HOMELESS Impression: Primary Impression: congestive heart failure Condition: Stable Discharge Instructions: Heart Failure Medicines Additional Instructions: If you are unable to tolerate amiodarone 200 mg twice a day you may take amiodarone once a day and be sure to follow up with a aircraft engineer this week. Referrals: NO PRIMARY CARE PROVIDER (PCP) Signature Scribe Signature: No scribe Attestation: The note accurately reflects work and decisions made by me.Roderick Delvalle MD 07/11/25 20:48 RODERICK DELVALLE MD Jul 11, 2025 18:12
[2025-07-11 21:17] VITALS: BP 115/60; PULSE 83; RESP 20; O2SAT 95
== END 2025-07-11 21:19 | disposition home or self-care (01) ==
LOC: ER 16:50
DX: I50.9 Heart failure, unspecified (principal); R07.9 Chest pain, unspecified; R06.02 Shortness of breath; F17.200 Nicotine dependence, unspecified, uncomplicated; I63.9 Cerebral infarction, unspecified; Z79.82 Long term (current) use of aspirin
CPT/HCPCS: 36415; 71045; 80048; 83880; 84484; 85025; 85379; 93005; 99285

== ENCOUNTER 2025-07-13 08:55 | Emergency (ER) | payer BC ==
[~2025-07-13] VITALS: Ht 165.1 cm; Wt 76.9 kg
--- NOTE | 2025-07-13 09:28 | Physician Documentation ---
History of Present Illness ~ Chief Complaint: Shortness of Breath Stated Complaint: MED REACTION Time Seen by MD: 08:57 Primary Medical Doctor: [facility] HPI 40-year-old female presents to the ED with a complaint increased heart rate since being switched to carvedilol. Patient has a history congestive heart failure for unknown causes. Diagnosed in May. States she has a life vest as well. She adds that she was on metoprolol before but could not tolerate the drug secondary to side effects therefore she is placed on carvedilol. He states her heart rate has been in the high 80s 90s compared to her normal approximate 70 beats per minute Currently she was previously prescribed amiodarone but has not started taking it because she believes that if the carvedilol is not helping her heart rate she is worried that amiodarone we will mask the side effects of carvedilol. Patient states that she is aware she is deficient and knowledge regarding cardiac medications. She also acknowledges that she is very fearful of her health status. Day of Onset: Jul 13, 2025 Medication Reconciliation Allergies: Coded Allergies: No Known Allergies (Unverified , 07/13/25) Scheduled Amiodarone Hcl (Cordarone), 200 MG PO BID Apixaban (Eliquis), 5 MG PO BID Aspirin (Ecotrin*), 1 TAB PO DAILY Atorvastatin Calcium (Atorvastatin Calcium), 40 MG PO HS Empagliflozin (Jardiance), 10 MG PO DAILY Losartan Potassium (Losartan Potassium), 12.5 MG PO DAILY Multivitamin (Multi Vitamin Daily), 1 TAB PO DAILY, (Reported) Scheduled PRN Hydroxyzine Hcl (Atarax), 1 TAB PO Q6H PRN for anxiety Past Medical History Past Medical History: No Pertinent History, CVA/TIA/Stroke, Congestive Heart Failure Patient History: Cardiomyopathy Paternal grandfather FH: CVA (cerebrovascular accident) Maternal grandmother Paternal grandmother (x 3) FH: colon cancer Maternal grandmother FH: heart disease FH: hypertension Paternal grandmother Review of Systems All Other Systems at this time: Reviewed and Negative ROS As stated above in the HPI, otherwise all systems are reviewed and negative. Physical Exam Vital Signs: Temperature: 97.7, Source: Temporal, Heart Rate: 95, Respiratory Rate: 20, BP: 101/50, Pulse Oximetry: 97, Weight: 76.900 Oxygen Flow Rate: 0 Physical Exam General: Alert, no apparent distress. Respiratory: Lungs clear, no respiratory distress. Chest: No accessory muscle use. Cardiovascular: Regular rate and rhythm, no murmurs. Gastrointestinal: Soft, nontender, nondistended. Bowels sounds present. Extremities: Normal range of motion, no deformity. Neurologic: Oriented x4. Psychiatric: Normal mood and affect. Skin: Normal color, warm and dry. No edema, no ecchymosis. Progress Results/Orders Results/Orders Orders - JEFFERSON MONTOYA DISH NETWORK INSTALLER Chest,Single View (07/13/25 09:19) Monitor (07/13/25 09:19) Saline Lock (07/13/25 09:19) Oxygen (07/13/25 09:19) Electrocardiogram (07/13/25 09:19) Hs Troponin I W Calculations (07/13/25 12:19) Completed Orders - JEFFERSON MONTOYA DISH NETWORK INSTALLER Chest,Single View (07/13/25 09:19) Cbc/Diff (07/13/25 09:19) BMP (07/13/25 09:19) PBNP (07/13/25 09:19) Hs Troponin I W Calculations (07/13/25 09:19) Hs Troponin I W Calculations (07/13/25 11:19) D-Dimer (07/13/25 10:33) Amiodarone Tablet (Cordarone Tablet) (07/13/25 10:35) Medications Received in ER Medications (Trade) Dose Ordered Sig/Sandra Route PRN Reason Start Time Stop Time Status Last Admin Dose Admin (Cordarone tablet) 200 mg ONCE ONCE PO 07/13/25 10:35 07/13/25 10:41 DC 07/13/25 10:50 200 MG Vital Signs 07/13/25 07/13/25 07/13/25 07/13/25 08:59 09: 09:28 10:00 Temp 97.7 97.7 Pulse 95 94 88 Resp 20 18 16 16 B/P (MAP) 101/50 112/70 (84) 109/69 (82) Pulse Ox 97 97 97 O2 Flow Rate 0 0 0 07/13/25 10:30 Pulse 106 Resp 14 B/P (MAP) 106/78 (87) Pulse Ox 96 O2 Flow Rate 0 Laboratory Tests Test 07/13/25 09:47 07/13/25 10:51 White Blood Count 11.8 H Red Blood Count 5.11 Hemoglobin 14.4 Hematocrit 44.3 Mean Corpuscular Volume 86.7 Mean Corpuscular Hemoglobin 28.3 Mean Corpuscular Hemoglobin Concent 32.6 L Red Cell Distribution Width 13.9 Platelet Count 301 Mean Platelet Volume 10.1 Neutrophils (%) (Auto) 82.6 H Lymphocytes (%) (Auto) 11.7 L Monocytes (%) (Auto) 4.6 Eosinophils (%) (Auto) 0.5 Basophils (%) (Auto) 0.6 Neutrophils # (Auto) 9.7 H Lymphocytes # (Auto) 1.4 Monocytes # (Auto) 0.5 Eosinophils # (Auto) 0.1 Basophils # (Auto) 0.1 CBC Comment Sodium Level 141 Potassium Level 3.6 Chloride Level 106 Carbon Dioxide Level 26.3 Anion Gap 9 Blood Urea Nitrogen 13 Creatinine 0.57 Estimated GFR/1.73 m2 > 90 BUN/Creatinine Ratio 22.8 H Glucose Level 140 H Calcium Level 8.9 Troponin I High Sensitivity 11 13 Troponin I High Sens Percent Delta 8 18 Troponin I Hi Sens Absolute Change -1 2 Pro-B-Type Natriuretic Peptide 1988 H Albumin 3.6 Chemistry Comments D-Dimer < 0.19 D-Dimer Comment Medical Decision Making Findings This patient's laboratory values reassuring when compared to her previous visits. EKG is comparable to her previous EKGs with a suspected left bundle branch block. Discussed at length with the patient that it is important to maintain medication compliance with a heart failure when seeking an improved state of pathology. He had provide her her initial dose of amiodarone while in the ED which she tolerated well. Also explained that I think she meets criteria to get on an SSRI to help with her anxiety. Fear of seems to be an obstacle for her to maintain medical compliance Differential Dx:Considerations: Include: anxiety, asthma, bronchitis, cardiogenic shock, CHF, COPD, dysrhythmia, hypertension, accelerated, hypertension, essential, hypertension, malignant, hyperventilation, hyponatremia, myocardial infarction, panic attack, pneumonia, pneumonitis, pneumothorax, PSVT, pulmonary embolism, respiratory distress, respiratory failure, sinusitis, upper resp. infection, other Departure Disposition: 01 HOME / SELF CARE / HOMELESS Impression: Primary Impression: Acute on chronic diastolic heart failure Discharge Instructions: Heart Failure, Diagnosis, [id number] Additional Instructions: Please take your medications as prescribed and follow up with the your forestry technician's and primary care. I am recommending that you address her anxiety via medical management through primary care. Thanks for seeing us here at [facility] ED. Referrals: NO PRIMARY CARE PROVIDER (PCP) Signature Scribe Signature: f Attestation: Scribed for Jefferson Montoya Business Trainer by Jefferson Rodney NP . 07/13/25 11:27 JEFFERSON MONTOYA NP Jul 13, 2025 09:28
--- NOTE | 2025-07-13 09:48 | RADIOLOGY REPORT ---
AP portable chest 1 CLINICAL INDICATION: CP Comparison: 07/11/2025 FINDINGS: Heart size is slightly prominent. Pacer leads are present. No infiltrates or effusions IMPRESSION: 1. No acute cardiopulmonary pathology
[2025-07-13 10:24] LABS: MEAN PLATELET VOLUME 10.1 FL (7.4-10.4); RED CELL DISTRIBUTION WIDTH 13.9 % (11.5-14.5)
[2025-07-13 10:48] LABS: CREATININE 0.57 MG/DL (0.40-0.90); PRO BRAIN NATRIURETIC PEPTIDE 1988 PG/ML (0-125); TOTAL CARBON DIOXIDE 26.3 MMOL/L (24-32); eCRCL 117 ML/MIN; eGFR > 90 ML/MIN
[2025-07-13 12:21] VITALS: BP 103/66; PULSE 75; RESP 13; TEMP 97.7; O2SAT 96
--- NOTE | 2025-07-14 10:15 | ELECTROCARDIOGRAPH REPORT ---
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
== END 2025-07-13 12:24 | disposition home or self-care (01) ==
LOC: ER 08:56
DX: I50.33 Acute on chronic diastolic (congestive) heart failure (principal); Z79.899 Other long term (current) drug therapy
CPT/HCPCS: 36415; 71045; 80048; 83880; 84484; 85025; 85379; 93005; 99285

== ENCOUNTER 2025-09-22 10:09 | Emergency (ER) | payer BC ==
[~2025-09-22] VITALS: Ht 160 cm; Wt 74.8 kg
[~2025-09-22 10:09] MED LIST changes: -AMIO200T76 PO
[2025-09-22 10:19] VITALS: BP 116/74; PULSE 95; TEMP 98; O2SAT 97
--- NOTE | 2025-09-22 11:30 | ELECTROCARDIOGRAPH REPORT ---
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 ADDI Goodrich Measurements Intervals [place] Rate: 72 P: 103 VT: 182 QRS: 25 QRSD: 189 T: -22 QT: 477 QTc: 523 Interpretive Statements Sinus rhythm Probable left atrial enlargement IVCD, consider atypical LBBB Electronically Signed On 09-24-2025 18:38:[address] ADDI Goodrich Please click the below link to view image of tracing.
--- NOTE | 2025-09-22 11:58 | Physician Documentation ---
History of Present Illness ~ Chief Complaint: Chest Pain Stated Complaint: HIGH BP Time Seen by MD: 11:42 Primary Medical Doctor: [facility] Source: patient Mode of Arrival: POV Exam Limitations: no limitations HPI Patient presents secondary to chest pain. She states her blood pressure was higher than her usual in the 120s over 80s and felt like it was difficult to take deep breath for the past two days. She states she is concerned for pneumonia as it is painful when she takes a deep breath. She has intermittent pain in her chest that occurs in different areas that she is able 2.2. No fevers or chills. Past history of heart failure with reduced ejection fraction with an LVEF of 20%. She is wearing a LifeVest. She had a stroke in the past and is now on Eliquis. Had a thrombus noted on NATHALIA. Follows with Dr. López for Cardiology Services as an outpatient. Medication Reconciliation Allergies: Coded Allergies: No Known Allergies (Unverified , 07/13/25) Scheduled Apixaban (Eliquis), 5 MG PO BID Aspirin (Ecotrin*), 1 TAB PO DAILY Atorvastatin Calcium (Atorvastatin Calcium), 40 MG PO HS Empagliflozin (Jardiance), 10 MG PO DAILY Losartan Potassium (Losartan Potassium), 12.5 MG PO DAILY Multivitamin (Multi Vitamin Daily), 1 TAB PO DAILY, (Reported) Scheduled PRN Hydroxyzine Hcl (Atarax), 1 TAB PO Q6H PRN for anxiety Past Medical History Past Medical History: No Pertinent History, CVA/TIA/Stroke, Congestive Heart Failure Past Surgical History: noncontributory Patient History: Cardiomyopathy Paternal grandfather FH: CVA (cerebrovascular accident) Maternal grandmother Paternal grandmother (x 3) FH: colon cancer Maternal grandmother FH: heart disease FH: hypertension Paternal grandmother Review of Systems ROS Review of systems negative except documented in HPI. Physical Exam Vital Signs: RN Vital Signs have been reviewed: Yes, Temperature: 98.0, Source: Oral, Heart Rate: 95, Respiratory Rate: 16, BP: 116/74, Pulse Oximetry: 97, Weight: 74.800 Oxygen Flow Rate: 0 Pulse Oximetry Reflects: adequate oxygenation Physical Exam General: Awake, alert, oriented. No apparent distress Neck: Supple. Normal range of motion. No JVD Respiratory: Lungs are clear to auscultation bilaterally. No respiratory distress. Chest: Normal shape and size. No accessory muscle use. Cardiovascular: Regular rate and rhythm. S1-S2. No murmur, gallop, rub. Extremities: No lower extremity edema, cyanosis or clubbing. Neurologic: Alert and oriented x4. Nonfocal Psychiatric: Normal mood and affect. Skin: Normal color. Warm and dry. Progress Results/Orders Results/Orders Orders - KEENA TOWNSEND MAJOR [employer] MANAGER Monitor (09/22/25 11:48) Chest,Single View (09/22/25 12:21) Completed Orders - KEENA TOWNSEND MAJ[employer] MANAGER Cbc/Diff (09/22/25 11:48) PBNP (09/22/25 11:48) Aspirin 81mg Chew Tablet (Aspirin 81mg C (09/22/25 11:50) Hs Troponin I W Calculations (09/22/25 11:48) Hs Troponin I W Calculations (09/22/25 13:48) BMP (09/22/25 11:48) Chest,Single View (09/22/25 12:21) Vital Signs 09/22/25 09/22/25 10:19 12:34 Temp 98.0 Pulse 95 Resp 16 16 B/P (MAP) 116/74 Pulse Ox 97 O2 Flow Rate 0 Laboratory Tests Test 09/22/25 12:09 09/22/25 13:54 White Blood Count 7.6 Red Blood Count 5.42 Hemoglobin 15.6 Hematocrit 47.1 H Mean Corpuscular Volume 86.9 Mean Corpuscular Hemoglobin 28.7 Mean Corpuscular Hemoglobin Concent 33.0 Red Cell Distribution Width 13.6 Platelet Count 273 Mean Platelet Volume 9.9 Neutrophils (%) (Auto) 66.5 Lymphocytes (%) (Auto) 23.5 Monocytes (%) (Auto) 7.1 Eosinophils (%) (Auto) 1.8 Basophils (%) (Auto) 1.1 H Neutrophils # (Auto) 5.1 Lymphocytes # (Auto) 1.8 Monocytes # (Auto) 0.5 Eosinophils # (Auto) 0.1 Basophils # (Auto) 0.1 CBC Comment Sodium Level 138 Potassium Level 4.2 Chloride Level 106 Carbon Dioxide Level 25.2 Anion Gap 7 L Blood Urea Nitrogen 17 Creatinine 0.60 Estimated GFR/1.73 m2 > 90 BUN/Creatinine Ratio 28.3 H Glucose Level 104 Calcium Level 8.9 Troponin I High Sensitivity 10 11 Pro-B-Type Natriuretic Peptide 2364 H Albumin 3.8 Chemistry Comments Troponin I High Sens Percent Delta 10 Troponin I Hi Sens Absolute Change 1 EKG/XRAY/CT/US/VASC/MRI EKG : Intepreting Monitor?: Yes Indication: chest pain EKG: NSR EKG Blocks: none Hypertrophy: none Additional Comment EKG time 1126: Sinus rhythm with left bundle branch block QRS duration [address] changes Chest X-Ray : Interpreted By: both Views: 1 VIEW Indication: chest pain Lungs: normal Mediastinum: normal Ribs/Bones: normal Abdomen: normal Impression: no acute disease, other (life vest in place) Additional Comments [address] [address] DIAGNOSTIC RADIOLOGY Patient: DIANE REYES Medical Record: [id number] [facility] : 1985, Age: 40 Sex: Female Location: ER Patient Status: [facility] ER Service Date/Time: 09/22/25/ 1221 Ordering Physician: KEENA TOWNSEND NP Exam: CHEST,SINGLE VIEW EXAM: DI CHEST,SINGLE VIEW HISTORY: CP TECHNIQUE: 1 view of the chest COMPARISON: DI CHEST,SINGLE VIEW on DOS: 07/13/25 FINDINGS/IMPRESSION: LUNGS: No pleural effusion, consolidation, or pneumothorax. Question peripheral interstitial edema MEDIASTINUM: Unremarkable. BONES: No acute osseous abnormality. OTHER: None. Electronically Signed by:POP CORTEZ MD Date & Time: 09/22/258 Dictated by: POP CORTEZ MD Dictation date and time: 09/22/25 1217 Primary Care Provider: NO PRIMARY CARE PROVIDER cc: KEENA TOWNSEND NP ~ Medical Decision Making Additional information obtaine: old records Findings Patient presented secondary to chest pain and having difficulty with a deep breath scribed as needing to take a deep breath. She has a known history of systolic heart failure/dilated cardiomyopathy. Is followed outpatient with Cardiology closely. Has been unable to tolerate guideline directed medical therapy secondary to low blood pressures and dizziness. She states her blood pressure has been more elevated which is quite concerning for her. Her systolic is in the 120s which is high for her. She did have blood pressures in the 120s over 80s while in the emergency department. Her high sensitivity troponin was negative x2. NT proBNP is elevated at 2364, with previous being 1988. She denies significant shortness for breath, dyspnea on exertion, orthopnea. She has multiple questions about her diagnosis including dietary information. Medication management was also discussed. For now, I recommended that she continue her medications as prescribed including carvedilol and Jardiance. Discussed with her collar packer the addition of an MOLINA inhibitor/ARB depending on her blood pressure. She was previously unable to tolerate these. She is currently wearing a LifeVest. She is encouraged to continue her LifeVest and follow up with her primary collar packer, Dr. López. There is low clinical suspicion for acute CO given normal troponins. EKG unchanged from previous which was also reviewed. She had a stress test without reversible ischemia in May 2025. Was discussed with her mother. The case was discussed with the attending physician, Alexandro. The plan of care, diagnostic evaluation and medical decision making were discussed. The attending physician was available for consultation, where the diagnostic findings as well as the eventual disposition. Heart Score: 1 Differential Dx:Considerations: Include: angina, aortic dissection, CHF, myocardial infarction Departure Time of Disposition: 14:49 Disposition: 01 HOME / SELF CARE / HOMELESS Impression: Primary Impression: Chest pain Qualified Codes: R07.9 - Chest pain, unspecified Additional Impression: Chronic systolic heart failure Condition: Stable Discharge Instructions: Heart Failure, Diagnosis, [id number], Nonspecific Chest Pain, Adult Additional Instructions: As we discussed I recommend that you continue your medications as prescribed. If your blood pressure continues to be elevated Dr. López we will consider changing your heart failure regimen. Recommend regular walking routine as tolerated. Recommend heart healthy diet. Recommended Mediterranean style diet. Return for new or worsening symptoms. Referrals: NO PRIMARY CARE PROVIDER (PCP) Education Educated: Patient Educated regarding: diagnosis, treatment, need for follow up Signature Scribe Signature: No scribe Attestation: The note accurately reflects work and decisions made by me.Keena Rodney NP 09/22/25 16:56 This note was created with the assistance of voice recognition software whereby errors in grammar, syntax, and/or spelling may have occurred despite active proofreading efforts by the author. Please do not hesitate to contact the provider for clarification or for questions regarding the content of this document. KEENA TOWNSEND NP Sep 22, 2025 11:58
[2025-09-22 12:22] LABS: MEAN PLATELET VOLUME 9.9 FL (7.4-10.4); RED CELL DISTRIBUTION WIDTH 13.6 % (11.5-14.5)
--- NOTE | 2025-09-22 12:30 | RADIOLOGY REPORT ---
EXAM: DI CHEST,SINGLE VIEW HISTORY: CP TECHNIQUE: 1 view of the chest COMPARISON: DI CHEST,SINGLE VIEW on DOS: 07/13/25 FINDINGS/IMPRESSION: LUNGS: No pleural effusion, consolidation, or pneumothorax. Question peripheral interstitial edema MEDIASTINUM: Unremarkable. BONES: No acute osseous abnormality. OTHER: None.
[2025-09-22 12:34] VITALS: RESP 16
[2025-09-22 12:43] LABS: CREATININE 0.60 MG/DL (0.40-0.90); PRO BRAIN NATRIURETIC PEPTIDE 2364 PG/ML (0-125); TOTAL CARBON DIOXIDE 25.2 MMOL/L (24-32); eCRCL 102 ML/MIN; eGFR > 90 ML/MIN
== END 2025-09-22 15:19 | disposition home or self-care (01) ==
LOC: ER 10:09
DX: R07.9 Chest pain, unspecified (principal); I50.22 Chronic systolic (congestive) heart failure; Z79.01 Long term (current) use of anticoagulants; Z86.73 Personal history of transient ischemic attack (TIA), and cerebral infarction without residual deficits
CPT/HCPCS: 36415; 71045; 80048; 83880; 84484; 85025; 93005; 99285

== ENCOUNTER 2025-10-02 19:06 | Inpatient (IN) | payer BC ==
[~2025-10-02] VITALS: Ht 165.1 cm; Wt 74.0 kg
[2025-10-02 19:48] LABS: URINE HCG NEGATIVE (NEG)
[2025-10-02 19:50] LABS: LEUKOCYTE ESTERASE ,URINE NEGATIVE (Neg); NITRITES, URINE NEGATIVE (Neg); OCCULT BLOOD,URINE TRACE-INTACT (Neg)
[2025-10-02 20:01] LABS: UA COLLECTION TYPE CLN CATCH MIDSTREAM
[2025-10-02 20:02] LABS: MEAN PLATELET VOLUME 9.3 FL (7.4-10.4); RED CELL DISTRIBUTION WIDTH 13.3 % (11.5-14.5)
[2025-10-02 20:15] LABS: CREATININE 0.69 MG/DL (0.40-0.90); TOTAL CARBON DIOXIDE 26.5 MMOL/L (24-32); eCRCL 97 ML/MIN; eGFR > 90 ML/MIN
[2025-10-02 20:21] LABS: SQUAMOUS EPITHELIAL CELL,UR FEW /LPF (FEW)
[2025-10-02] MEDS ORDERED: iohexol 300mg/ml 100ml inj. ONE (21:23)
--- NOTE | 2025-10-02 21:30 | Physician Documentation ---
History of Present Illness Chief Complaint: Abdominal Pain Stated Complaint: ABDOMINAL PAIN Time Seen by MD: 21:19 Primary Medical Doctor: [facility] HPI 39-year-old female who presents to the emergency department for evaluation of left lower quadrant pain. Has had past medical history that included diverticulitis. Symptoms has been present for about a week and a half that has been waxing and waning. No reported fever or tenesmus. No bloody stool. Not requiring pain management at this time. Medication Reconciliation Allergies: Coded Allergies: No Known Allergies (Unverified , 10/02/25) Scheduled Amiodarone Hcl (Cordarone), 1 TAB PO DAILY, (Reported) Apixaban (Eliquis), 1 TAB PO BID, (Reported) Atorvastatin Calcium* (Lipitor*), 1 TAB PO DAILY, (Reported) Empagliflozin (Jardiance), 1 TAB PO DAILY, (Reported) Multivitamin (Multi Vitamin Daily), 1 TAB PO DAILY, (Reported) [Carvedilol*], 6.25 BID, (Reported) Scheduled PRN Hydroxyzine Hcl* (Atarax*), 1 TAB PO Q6H PRN for for anxiety/agitation, (Reported) Discontinued Medications Apixaban (Eliquis), 5 MG PO BID Discontinued Reason: Other Aspirin (Ecotrin*), 1 TAB PO DAILY Discontinued Reason: patient no longer taking Atorvastatin Calcium (Atorvastatin Calcium), 40 MG PO HS Discontinued Reason: patient no longer taking Carvedilol* (Coreg*), 1 TAB PO Q12H, (Reported) Discontinued Reason: Prescription changed Empagliflozin (Jardiance), 10 MG PO DAILY Discontinued Reason: Other Hydroxyzine Hcl (Atarax), 1 TAB PO Q6H PRN for anxiety Discontinued Reason: Other Losartan Potassium (Losartan Potassium), 12.5 MG PO DAILY Discontinued Reason: patient no longer taking Past Medical History Past Medical History: No Pertinent History, CVA/TIA/Stroke, Congestive Heart Failure Past Surgical History: noncontributory Patient History: Cardiomyopathy Paternal grandfather FH: CVA (cerebrovascular accident) Maternal grandmother Paternal grandmother (x 3) FH: colon cancer Maternal grandmother FH: heart disease FH: hypertension Paternal grandmother Review of Systems All Other Systems at this time: Reviewed and Negative ROS [facility] Physical Exam Vital Signs: RN Vital Signs have been reviewed: Yes, Temperature: 96.8, Source: Temporal, Heart Rate: 67, Respiratory Rate: 15, BP: 111/79, Pulse Oximetry: 97, Weight: 74.000 General Appearance: alert, WD/WN, moderate distress EENT: PERRL/EOMI Neck: normal inspection Respiratory: lungs clear Chest: no accessory muscle use Gastrointestinal: tenderness (Lower quadrant), guarding Extremities: normal range of motion Neurologic: oriented x4 Psychiatric: normal mood/affect Skin: normal color, warm/dry Progress Results/Orders Results/Orders Orders - WILL JARA PAC Ct Abdomen Pelvis (10/02/25 ) * Iv Access / Saline Lock * (10/02/25 21:27) Completed Orders - WILL JARA PAC Iohexol 300mg/Ml 100ml Inj. (Omnipaque-3 (10/02/25 21:23) Vital Signs 10/02/25 19:26 Temp 96.8 Pulse 67 Resp 15 B/P (MAP) 111/79 Pulse Ox 97 Laboratory Tests Test 10/02/25 19:30 10/02/25 19:48 Urine Specimen Description Cln catch midstream Urine Color Yellow Urine Clarity Clear Urine pH 5.5 Urine Specific [place] 1.025 Urine Protein Negative Urine Glucose (UA) >=1000 H Urine Ketones 15 H Urine Occult Blood Trace-intact Urine Nitrite Negative Urine Bilirubin Small Urine Urobilinogen 0.2 Urine Leukocyte Esterase Negative Urine RBC 0-2 Urine WBC 0-4 Urine Squamous Epithelial Cells Few Urine Bacteria Few Urine Culture Indicated Not ind Volume Urine Centrifuged 10 ml Urine HCG, Qualitative Negative Urine Comment White Blood Count 14.8 H Red Blood Count 5.57 Hemoglobin 15.7 Hematocrit 47.6 H Mean Corpuscular Volume 85.4 Mean Corpuscular Hemoglobin 28.2 Mean Corpuscular Hemoglobin Concent 33.1 Red Cell Distribution Width 13.3 Platelet Count 301 Mean Platelet Volume 9.3 Neutrophils (%) (Auto) 73.9 Lymphocytes (%) (Auto) 18.5 L Monocytes (%) (Auto) 6.1 Eosinophils (%) (Auto) 0.9 Basophils (%) (Auto) 0.6 Neutrophils # (Auto) 10.9 H Lymphocytes # (Auto) 2.7 Monocytes # (Auto) 0.9 Eosinophils # (Auto) 0.1 Basophils # (Auto) 0.1 CBC Comment Sodium Level 139 Potassium Level 4.0 Chloride Level 104 Carbon Dioxide Level 26.5 Anion Gap 9 Blood Urea Nitrogen 18 Creatinine 0.69 Estimated GFR/1.73 m2 > 90 BUN/Creatinine Ratio 26.1 H Glucose Level 94 Calcium Level 9.1 Total Bilirubin 0.5 Aspartate Amino Transf (AST/SGOT) 13 Alanine Aminotransferase (ALT/SGPT) 23 Alkaline Phosphatase 73 Total Protein 7.2 Albumin 3.8 Globulin 3.4 Albumin/Globulin Ratio 1.1 Lipase 28 Chemistry Comments Medical Decision Making Additional information obtaine: N/A Findings Examination and past medical history consistent with likely that of diverticulitis. Will go ahead and obtain CT imaging to evaluate for diverticulitis and/or other unforeseen intra-abdominal pelvic pathologies. Labs noted to have mild leukocytosis otherwise reassuring. Patient awaiting CT imaging and re-evaluation. Again patient is not requiring pain management her request. Received critical finding from radiologist regarding CT imaging: Complicated diverticulitis of the distal descending colon with microperforation. Discussed case with surgeon who advised his admission in his sufficient no surgical indication at this time. IV Zosyn 4.5 g IV piggyback and lactic acid pending. Patient reassessed continues not to requiring pain management. Hospitalist consultation submitted for admission. He is discussed with the attending. Discussed case with the hospitalist at 10:53 p.m. who will kindly admit. Differential Dx:Considerations: Appendicitis, Bowel obstruction, Constipation, Diverticular disease, Gastroenteritis, GI hemorrhage, Inflammatory BD, Ischemic bowel Departure Disposition: ADMITTED INPATIENT Admitted to Inpatient Unit: to hospitalist Impression: Primary Impression: Diverticulitis of colon with perforation Referrals: NO PRIMARY CARE PROVIDER (PCP) Signature Scribe Signature: . Attestation: . WILL JARA PAC Oct 02, 2025 21:30
--- NOTE | 2025-10-02 22:31 | RADIOLOGY REPORT ---
CLINICAL HISTORY: Diverticulitis TECHNIQUE: CT of the abdomen and pelvis was performed with intravenous contrast. 100 mL Omnipaque 300 injected. This exam was performed according to our departmental dose optimization program. Up-to-date CT equipment and radiation dose reduction techniques are utilized as appropriate. CTDIVol: 17.88 mGy DLP: 124.97 mGy-cm WID: COMPARISON: None FINDINGS: Lower Thorax: Upper limits of normal-sized heart. Lung bases are clear. Liver and Biliary system: Mild hepatomegaly measuring 18 cm craniocaudal. Otherwise unremarkable. Spleen: Unremarkable. Adrenal Glands and Kidneys: Unremarkable. Pancreas and Retroperitoneum: Unremarkable. Aorta and Major Vessels: Aortoiliac vessels are patent and normal caliber containing mild calcified atherosclerotic plaque. Bowel, Mesentery and Peritoneal space: Normal caliber small and large bowel. Mild ascites in the pelvis. There is a segment of circumferential wall thickening and pericolonic stranding in the distal descending colon with acute inflammatory changes of a diverticulum anteriorly on series 2, image 57. A few locules of extraluminal gas are seen adjacent to this inflamed diverticulum on series 2, image 59. There is fluid surrounding the inflamed distal diverticulum. Normal appendix. No generalized free intraperitoneal air. No well-formed fluid collection to suggest abscess formation at this time. Pelvis: Small cyst in the left ovary on series 2, image 92, otherwise unremarkable. Abdominal wall and Osseous Structures: No destructive osseous lesion. IMPRESSION: 1. Acute complicated diverticulitis of the distal descending colon with a few locules of extraluminal gas concordant with microperforation. 2. No well-formed fluid collection to suggest abscess at this time. 3. Mild ascites adjacent to the descending colon and pelvis. 4. Mild hepatomegaly. Critical Result: Acute complicated diverticulitis descending colon. Findings discussed with dr. Agarwal at 10/02/2025 10:28 PM, and acknowledged receipt and understanding of the findings. ..
[2025-10-02] MEDS: normal saline 1000ml 1,000 ML IV SCH (22:55)
[2025-10-02] MEDS ORDERED: magnesium sulf-water 4G/100mL 100 ML IV PRN (23:45)
[2025-10-02] MEDS ORDERED: ondansetron/PF 4mg/2ml inj IV PRN (23:45)
[2025-10-02] MEDS ORDERED: mag hydrox/Alum hydrox/simeth 30ml oral suspension PO PRN (23:45)
[2025-10-02] MEDS ORDERED: HYDROcodone/acetaminophen 10/325mg tab PO PRN (23:45)
[2025-10-02] MEDS ORDERED: magnesium Cl slow-release 64mg tablet PO PRN (23:45)
[2025-10-02] MEDS ORDERED: magnesium hydroxide 30ml (MOM) UD suspension PO PRN (23:45)
[2025-10-02] MEDS ORDERED: magnesium sulf-water 2g/50mL 50 ML IV PRN (23:45)
[2025-10-02] MEDS ORDERED: potassium Cl 40MEQ/1/2NS 520ml 520 ML IV PRN (23:45)
[2025-10-02] MEDS ORDERED: potassium Cl 20 mEq SR tablet PO PRN ×2 (23:45)
[2025-10-02] MEDS ORDERED: HYDROcodone/acetaminophen 5mg/325mg tablet PO PRN (23:45)
--- NOTE | 2025-10-02 23:55 | HISTORY AND PHYSICAL-Residence ---
History & Physical Providers to CC Resident Creating Document: TRIPP MARES, RES ~ History of Present Illness Primary Medical Doctor: [facility] Reason for Admit\Complaint: Abdominal pain History of Present Illness 40 year old female with history of HFrEF, ischemic stroke, dilated cardiomyopathy came to the ER with complaints of left lower quadrant abdominal pain. She states that she had abdominal pain a week ago for 1 or 2 days which subsided, and came back again today. She endorses stabbing type of pain with a severity of 7/10, which aggravates on movement with no radiation. Her last bowel movement was today and she states that she has regular bowel movements. She denies fever, chills, nausea, vomiting, changes in appetite. She reports weight loss of 25 lb since May. She denies hematochezia, melena, hematemesis. She states that she has a healthy diet which includes vegetables and fruits. She never had an endoscopy or colonoscopy. She has a lifevest due to HF with an ejection fraction of 20%. She is on Eliquis due to thrombus in left ventricle. Her director of product management is Dr. López. She denies chest pain, shortness of breath, palpitations, dizziness, headache, swelling of legs, burning micturition, frequency, urgency. Her PCP is in [facility], but she does not remember the name Her director of product management is Dr. López Her neurologist is Dr. 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, on eliquis Dilated cardiomyopathy Supraventricular tachycardia 3 miscarriages Past Surgical History Surgical History Comment Tonsillectomy Right foot screw placed Family History Family History: Cardiomyopathy Paternal grandfather FH: CVA (cerebrovascular accident) Maternal grandmother Paternal grandmother (x 3) FH: colon cancer Maternal grandmother FH: heart disease FH: hypertension Paternal grandmother Past Social History Social History Comment She quit smoking in May, she used to smoke half pack a day for 30 years She denies drinking alcohol She quit smoking weed in May, she smoked for around 30 years Her PCP is in [facility], but she does not remember the name Her director of product management is Dr. López Her neurologist is Dr. 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 Gastrointestinal: Reports Abdominal pain, No vomiting,nausea,constipation,diarrhea. Normal appetite. No hematemesis or melena. Musculoskeletal: No Swelling, pain in bilateral lower legs. Integumentary: No change in skin, hair, nails. No swelling, bruising, abrasions Neurologic: No weakness,No headache, neck pain, numbness or tingling of the extremities, Psychiatric: No delusions, depression, loss of interest in normal activity or change in sleep pattern, hallucinations, suicidal ideations Endocrine: No fatigue, no weakness. polydipsia, polyuria, change in appetite, heat or cold intolerance, sweating, dry skin Hematological: No bleeding, petechiae, bruising Allergies: No asthma or urticaria Exam Vitals: Vital Signs Date Time Temp Pulse Resp B/P (MAP) Pulse Ox O2 Delivery O2 Flow Rate FiO2 10/02/25 19:26 96.8 67 15 111/79 97 General: Awake , alert, and oriented x4, resting comfortably in the bed, in no acute distress HEENT: Atraumatic, normocephalic, EOMI, anicteric sclera ; pink conjunctiva, moist mucous membranes Neck: Trachea midline. Supple, full range of motion, no JVD Cardiac: Regular rhythm, regular rate with no murmurs all over the precordium. Respiratory: Equal breath sounds bilaterally, no tachypnea, no wheezing ,rub or rales, Chest wall is symmetric and without deformity. Gastrointestinal: Abdomen non-distended, soft, tenderness present over left lower quadrant, no guarding, no rigidity, no rebound tenderness, normal bowel sounds, no hepatosplenomegaly Musculoskeletal: No pedal edema, no cyanosis Neurological: Speech is clear, alert, and oriented x 4. No motor deficit, s ensory deficit present over right 4th and 5th fingers, deep tendon reflexes normal, cerebellar intact. Cranial nerves II-XII intact. Skin: Warm and dry Diagnostic Data Last Recorded Lab Results: 10/02/25194710/02/251947 Advance Care Planning Advanced Care plannin - 30 Minutes (Full code) Additional Plan Abdominal pain 2/2 Acute complicated diverticulitis with microperforation She is hemodynamically stable Left lower quadrant tenderness present, no guarding, no rigidity, no rebound tenderness SIRS criteria not met WBC is elevated 14.8 Lactic acid is normal Lipase is normal Electrolytes are normal Abdomen CT: -Acute complicated diverticulitis of the distal descending colon with microperforation -Mild ascites adjacent to the descending colon and pelvis Plan: Started on IV Zosyn 3.375 g q.8h On NS 100 mL/hour Surgeon, Dr. Michelle was consulted by the ER physician for possible surgery Dr. Michelle stated that the patient does not need surgery Started on clear liquids, advance diet as tolerated Follow up procalcitonin HFrEF, ejection fraction of 20% Embolus in left ventricle, on Eliquis Follow up BNP Previous NATHALIA in May 2025 shows LVEF of 20%, with mobile echogenic mass most likely a left ventricular thrombus. She takes Jardiance 10 mg, carvedilol 3.125 mg and losartan 12.5 mg daily at home We will continue after med reconciliation Continue Eliquis 5 mg b.i.d. after med reconciliation She was recommended to follow up with director of cardiopulmonary services oncologist for underlying hypercoagulable state during the previous discharge Follow up outpatient She is on a LifeVest Continue telemetry monitoring History of ischemic stroke Residual sensory deficit in the right 4th and 5th fingers She was on aspirin 81 mg She was recommended to stop aspirin 81 mg on Tuesday and continue only Eliquis by Dr. López Continue Eliquis 5 mg b.i.d. for med reconciliation Hyperlipidemia Follow up lipid panel Continue home medication atorvastatin 40 mg after med reconciliation # pending med reconciliation I spent a total of 18 minutes reviewing various resuscitative measures/ACP with the patient. The patient decided to be full code. Code status: Full code DVT prophylaxis: Eliquis 5 mg b.i.d. Pain management: Tylenol/[place] 5 mg/10 mg p.r.n. Diet/nutrition: Clear liquid diet, advance as tolerated Prognosis: Guarded Disposition: Continue IV Zosyn, advance diet as tolerated, She is on a LifeVest, continue telemetry monitoring, PT eval and DC plan Resident MD attestation: The patient note has been reviewed and supervised by senior residents PGY-2/ PGY-3. Patient was seen, examined and discussed with attending physician, Dr. Mikal Mares MD Internal Medicine resident, PGY-1 Patient assessed, discussed plan with the resident. I agree with the assessment and plan above with no changes. Mikal Long MD Critical Care Date of Service: Oct 02, 2025 Billing Provider: MIKAL LONG MD, PREETHI, RES Oct 02, 2025 23:55 MIKAL LONG MD Oct 03, 2025 16:23
[2025-10-03] MEDS: piperacillin/tazo 4.5gm/100ml 100 ML IV SCH (00:49)
[2025-10-03 01:14] LABS: INR 1.2 INR
[2025-10-03 01:21] LABS: CREATININE 0.62 MG/DL (0.40-0.90); PHOSPHORUS 4.3 MG/DL (2.3-4.5); PRO BRAIN NATRIURETIC PEPTIDE 1744 PG/ML (0-125); TOTAL CARBON DIOXIDE 24.5 MMOL/L (24-32); eCRCL 107 ML/MIN; eGFR > 90 ML/MIN
[2025-10-03 01:28] LABS: APTT 26 SECONDS (22-32)
[2025-10-03 01:31] LABS: ETHANOL < 10 MG/DL (<10)
[2025-10-03 04:02] LABS: MEAN PLATELET VOLUME 9.3 FL (7.4-10.4); RED CELL DISTRIBUTION WIDTH 13.6 % (11.5-14.5)
[2025-10-03 04:25] LABS: CHOL/HDL RATIO 3.2 (0.00-4.99); CREATININE 0.67 MG/DL (0.40-0.90); LDL CHOLESTEROL 75 MG/DL (50-100); TOTAL CARBON DIOXIDE 24.2 MMOL/L (24-32); eCRCL 99 ML/MIN; eGFR > 90 ML/MIN
[2025-10-03] MEDS: piperacillin/tazo 3.375gm/50ml 50 ML IV SCH (04:30)
--- NOTE | 2025-10-03 06:12 | ELECTROCARDIOGRAPH REPORT ---
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
[2025-10-03] MEDS ORDERED: CARV-50 PO (06:56)
[2025-10-03] MEDS ORDERED: ATOR20TA PO (06:56)
[2025-10-03] MEDS ORDERED: AMIO200T76 PO (06:56)
[2025-10-03 07:28] VITALS: BP 94/62; PULSE 74; RESP 16; TEMP 98.3; O2SAT 96
[2025-10-03] MEDS: K and/or MAG REPLACEMENT MC SCH (08:00)
[2025-10-03] MEDS ORDERED: piperacillin/tazo 4.5gm/100ml 100 ML IV SCH (08:00)
[2025-10-03 10:00] VITALS: BP 104/68; PULSE 73; RESP 16; TEMP 97.4; O2SAT 96
[2025-10-03] MEDS ORDERED: EMPA10TA PO (10:10)
[2025-10-03] MEDS ORDERED: APIX5TAB3 PO (10:10)
[2025-10-03] MEDS ORDERED: HYDR-3686 PO (10:10)
--- NOTE | 2025-10-03 10:39 | PROGRESS NOTE ---
Daily Progress Note Providers to CC No new Complaint, resting comfortably in the bed ~ Central Line/PICC still needed: No Faustin-Non Protocol Faustin Indications Met/Not Met: F/C Indications Not Met Antibiotic Timeout Antibiotic Ordered?: Yes MRSA Education MRSA Education Provided to pt: Yes Subjective As above Objective Vital Signs Date Time Temp Pulse Resp B/P (MAP) Pulse Ox O2 Delivery O2 Flow Rate FiO2 10/03/25 08:14 69 10/03/25 07:28 98.3 16 94/62 (73) 96 Room Air Vital signs, stable ,afebrile. Pulse Oximetry reflects adequate oxygenation. General: well developed, well nourished. Awake , alert, and oriented x4, resting comfortably in the bed, in no acute distress . Skin: Warm, dry, no pallor, no rash or petechiae. HEENT: Atraumatic, normocephalic, EOMI, anicteric sclera B; pink conjunctiva; PERRLA, normal oropharynx, moist oral and nasal mucosa. Tympanic membrane , nose , throat clear. Neck: Trachea midline. Supple, full range of motion, no JVD, bruit , hepatojugular reflex , lymphadenopathy or masses, or other lesions Cardiac: Regular rhythm, regular rate no murmurs, rubs, or gallops. Normal S1 and S2, no S3 noticed. PMI is normal. Respiratory: Equal breath sounds bilaterally, no tachypnea; lungs clear to auscultation bilaterally, no wheezing ,rub or rales, or crackles. Chest wall is symmetric and without deformity. No signs of trauma. Chest wall is nontender. No signs of respiratory distress. Resonance is normal upon percussion bilaterally. Gastrointestinal: Abdomen symmetric, non-distended, soft, non-tender, normal bowel sounds x4 quadrant, normoactive, no hepatosplenomegaly , no masses , no bruit, no flank pain bilaterally. No voluntary guarding, rebound, or rigidity. No tenderness to percussion. No pulsatile masses. Equal femoral pulses. No Spicer's sign or McBurney point tenderness. Back; no CVA tenderness bilaterally, no deformities. Neck and back are without deformity as well. No tenderness noted on palpation of the spinous processes. Spinous processes are midline. Cervical, thoracic, and lumbar paraspinal muscles are not tender and are without spasm. Musculoskeletal: Extremities, normal range of motion, non-tender, muscle strength 5/5 x 4. Negative Homans signs bilaterally on lower extremity. Distal pulses full symmetrical, no clubbing, cyanosis , edema. Neurological: Speech is clear, alert, and oriented x 4. No motor or sensory deficit, deep tendon reflexes normal, cerebellar intact. Cranial nerves II-XII intact. Psych: Alert and or appropriate, normal affect. Vascular: Good distal pulses, which are equal x4; capillary refill less than 2 seconds. Lymphatic, no lymphadenopathy. Result Diagram: 10/03/25 0345 10/03/25 0345 Coagulation Studies Laboratory Tests Test 10/03/25 00:12 Prothrombin Time 11.9 SECONDS (9.0-12.0) INR International Normalized Ratio 1.2 INR Activated Partial Thromboplast Time 26 SECONDS (22-32) Coagulation Comments Problem\Assessment\Plan Assessment/Plan Abdominal pain 2/2 Acute complicated diverticulitis with microperforation She is hemodynamically stable Left lower quadrant tenderness present, no guarding, no rigidity, no rebound tenderness SIRS criteria not met WBC is elevated 14.8 Lactic acid is normal Lipase is normal Electrolytes are normal Abdomen CT: -Acute complicated diverticulitis of the distal descending colon with microperforation -Mild ascites adjacent to the descending colon and pelvis Plan: Started on IV Zosyn 3.375 g q.8h On NS 100 mL/hour Surgeon, Dr. Michelle was consulted by the ER physician for possible surgery Dr. Michelle stated that the patient does not need surgery Started on clear liquids, advance diet as tolerated Follow up procalcitonin HFrEF, ejection fraction of 20% Embolus in left ventricle, on Eliquis Follow up BNP Previous NATHALIA in May 2025 shows LVEF of 20%, with mobile echogenic mass most likely a left ventricular thrombus. She takes Jardiance 10 mg, carvedilol 3.125 mg and losartan 12.5 mg daily at home We will continue after med reconciliation Continue Eliquis 5 mg b.i.d. after med reconciliation She was recommended to follow up with ore smelter oncologist for underlying hypercoagulable state during the previous discharge Follow up outpatient She is on a LifeVest Continue telemetry monitoring History of ischemic stroke Residual sensory deficit in the right 4th and 5th fingers She was on aspirin 81 mg She was recommended to stop aspirin 81 mg on Tuesday and continue only Eliquis by Dr. López Continue Eliquis 5 mg b.i.d. for med reconciliation Hyperlipidemia Follow up lipid panel Continue home medication atorvastatin 40 mg after med reconciliation Completed med reconciliation I spent a total of 18 minutes reviewing various resuscitative measures/ACP with the patient. The patient decided to be full code. Code status: Full code DVT prophylaxis: Eliquis 5 mg b.i.d. Pain management: Tylenol/[place] 5 mg/10 mg p.r.n. Diet/nutrition: Clear liquid diet, advance as tolerated Prognosis: Guarded Disposition: Continue IV Zosyn, advance diet as tolerated, She is on a LifeVest, continue telemetry monitoring, PT eval and DC plan Sepsis Screening Reassessment Date: Oct 03, 2025 Date of Service: Oct 03, 2025 Billing Provider: LAY GARCIA MD Common Visit Codes: 99693-[id number] INP/OBS CARE(HIGH) LAY GARCIA MD Oct 03, 2025 10:38
[2025-10-03] MEDS: lactobacillus rhamnosus 10,000 MMU CELLS/CAPSULE PO SCH (11:33)
[2025-10-03] MEDS: docusate sod 100mg capsule PO SCH (11:33)
[2025-10-03] MEDS: EMPAGLIFLOZIN 10 MG TABLET PO SCH (11:35)
[2025-10-03] MEDS: carvedilol 6.25mg tablet PO SCH (11:46)
[2025-10-03] MEDS ORDERED: Carvedilol (12:32)
[2025-10-03] MEDS ORDERED: CARV3.122 PO (16:16)
[2025-10-03 18:00] VITALS: BP 105/68; PULSE 74; RESP 16; TEMP 97.4; O2SAT 93
[2025-10-03 19:02] VITALS: RESP 19; O2SAT 93
[2025-10-03 20:23] VITALS: BP 102/67; PULSE 79
[2025-10-03 22:00] VITALS: BP 99/59; PULSE 69; RESP 14; TEMP 97.7; O2SAT 100
[2025-10-04] VITALS (8 sets, daily range): BP systolic 96–107; BP diastolic 57–64; PULSE 66–76; RESP 14–17; TEMP 97.2–98.2; O2SAT 95–100
[2025-10-04 04:50] LABS: LEUKOCYTE ESTERASE ,URINE NEGATIVE (Neg); NITRITES, URINE NEGATIVE (Neg); OCCULT BLOOD,URINE NEGATIVE (Neg)
[2025-10-04 04:56] LABS: UA COLLECTION TYPE NON-SPECIFIED
[2025-10-04 04:58] LABS: MUCUS STRANDS NONE SEEN /LPF (Neg); SQUAMOUS EPITHELIAL CELL,UR FEW /LPF (FEW)
[2025-10-04 05:05] LABS: URINE AMPHETAMINE SCREEN NEGATIVE (Neg); URINE BARBITUATE SCREEN NEGATIVE (Neg); URINE BENZODIAZEPINES SCREEN NEGATIVE (Neg); URINE CANNABINOID SCREEN NEGATIVE (Neg); URINE COCAINE SCREEN NEGATIVE (Neg); URINE METHADONE SCREEN NEGATIVE (Neg); URINE OPIATE SCREEN NEGATIVE (Neg); URINE PHENCYCLIDINE SCREEN NEGATIVE (Neg)
[2025-10-04 05:39] LABS: MEAN PLATELET VOLUME 9.6 FL (7.4-10.4); RED CELL DISTRIBUTION WIDTH 13.5 % (11.5-14.5)
[2025-10-04 05:46] LABS: CREATININE 0.76 MG/DL (0.40-0.90); TOTAL CARBON DIOXIDE 26.9 MMOL/L (24-32); eCRCL 88 ML/MIN; eGFR 84 ML/MIN
[2025-10-04] MEDS ORDERED: EMPAGLIFLOZIN 10 MG TABLET PO SCH (08:00)
[2025-10-04] MEDS: multivitamins, therapeutics tablet PO SCH (08:11)
--- NOTE | 2025-10-04 19:00 | PROGRESS NOTE ---
Daily Progress Note Providers to CC Today, tolerating p.o. liquid diet fine, ~ Central Line/PICC still needed: No Faustin-Non Protocol Fa[place]in Indications Met/Not Met: F/C Indications Not Met Antibiotic Timeout Antibiotic Ordered?: Yes MRSA Education MRSA Education Provided to pt: Yes Subjective As above Objective Vital Signs Date Time Temp Pulse Resp B/P (MAP) Pulse Ox O2 Delivery O2 Flow Rate FiO2 10/04/25 18:00 97.2 72 16 107/62 (77) 98 Room Air Vital signs, stable ,afebrile. Pulse Oximetry reflects adequate oxygenation. General: well developed, well nourished. Awake , alert, and oriented x4, resting comfortably in the bed, in no acute distress . Skin: Warm, dry, no pallor, no rash or petechiae. HEENT: Atraumatic, normocephalic, EOMI, anicteric sclera B; pink conjunctiva; PERRLA, normal oropharynx, moist oral and nasal mucosa. Tympanic membrane , nose , throat clear. Neck: Trachea midline. Supple, full range of motion, no JVD, bruit , hepatojugular reflex , lymphadenopathy or masses, or other lesions Cardiac: Regular rhythm, regular rate no murmurs, rubs, or gallops. Normal S1 and S2, no S3 noticed. PMI is normal. Respiratory: Equal breath sounds bilaterally, no tachypnea; lungs clear to auscultation bilaterally, no wheezing ,rub or rales, or crackles. Chest wall is symmetric and without deformity. No signs of trauma. Chest wall is nontender. No signs of respiratory distress. Resonance is normal upon percussion bilaterally. Gastrointestinal: Abdomen symmetric, non-distended, soft, non-tender, normal bowel sounds x4 quadrant, normoactive, no hepatosplenomegaly , no masses , no bruit, no flank pain bilaterally. No voluntary guarding, rebound, or rigidity. No tenderness to percussion. No pulsatile masses. Equal femoral pulses. No Spicer's sign or McBurney point tenderness. Back; no CVA tenderness bilaterally, no deformities. Neck and back are without deformity as well. No tenderness noted on palpation of the spinous processes. Spinous processes are midline. Cervical, thoracic, and lumbar paraspinal muscles are not tender and are without spasm. Musculoskeletal: Extremities, normal range of motion, non-tender, muscle strength 5/5 x 4. Negative Homans signs bilaterally on lower extremity. Distal pulses full symmetrical, no clubbing, cyanosis , edema. Neurological: Speech is clear, alert, and oriented x 4. No motor or sensory deficit, deep tendon reflexes normal, cerebellar intact. Cranial nerves II-XII intact. Psych: Alert and or appropriate, normal affect. Vascular: Good distal pulses, which are equal x4; capillary refill less than 2 seconds. Lymphatic, no lymphadenopathy. Result Diagram: 10/04/25 0458 10/04/25 0448 Coagulation Studies Laboratory Tests Test 10/03/25 00:12 Prothrombin Time 11.9 SECONDS (9.0-12.0) INR International Normalized Ratio 1.2 INR Activated Partial Thromboplast Time 26 SECONDS (22-32) Coagulation Comments Problem\Assessment\Plan Assessment/Plan Abdominal pain 2/2 Acute complicated diverticulitis with microperforation She is hemodynamically stable Left lower quadrant tenderness present, no guarding, no rigidity, no rebound tenderness SIRS criteria not met WBC is elevated 14.8 Lactic acid is normal Lipase is normal Electrolytes are normal Abdomen CT: -Acute complicated diverticulitis of the distal descending colon with microperforation -Mild ascites adjacent to the descending colon and pelvis Plan: Started on IV Zosyn 3.375 g q.8h On NS 100 mL/hour Surgeon, Dr. Michelle was consulted by the ER physician for possible surgery Dr. Michelle stated that the patient does not need surgery Started on clear liquids, advance diet as tolerated Follow up procalcitonin HFrEF, ejection fraction of 20% Embolus in left ventricle, on Eliquis Follow up BNP Previous NATHALIA in May 2025 shows LVEF of 20%, with mobile echogenic mass most likely a left ventricular thrombus. She takes Jardiance 10 mg, carvedilol 3.125 mg and losartan 12.5 mg daily at home We will continue after med reconciliation Continue Eliquis 5 mg b.i.d. after med reconciliation She was recommended to follow up with duct layer helper oncologist for underlying hypercoagulable state during the previous discharge Follow up outpatient She is on a LifeVest Continue telemetry monitoring History of ischemic stroke Residual sensory deficit in the right 4th and 5th fingers She was on aspirin 81 mg She was recommended to stop aspirin 81 mg on Tuesday and continue only Eliquis by Dr. López Continue Eliquis 5 mg b.i.d. for med reconciliation Hyperlipidemia Follow up lipid panel Continue home medication atorvastatin 40 mg after med reconciliation Completed med reconciliation I spent a total of 18 minutes reviewing various resuscitative measures/ACP with the patient. The patient decided to be full code. Code status: Full code DVT prophylaxis: Eliquis 5 mg b.i.d. Pain management: Tylenol/[place] 5 mg/10 mg p.r.n. Diet/nutrition: Clear liquid diet, advance as tolerated Prognosis: Guarded Disposition: Continue IV Zosyn, advance diet as tolerated, She is on a LifeVest, continue telemetry monitoring, PT eval and DC plan Date of Service: Oct 04, 2025 Billing Provider: LAY GARCIA MD Common Visit Codes: [id number] INP/OBS CARE(HIGH) LAY GARCIA MD Oct 04, 2025 19:00
[2025-10-05 05:51] LABS: MEAN PLATELET VOLUME 9.7 FL (7.4-10.4); RED CELL DISTRIBUTION WIDTH 13.4 % (11.5-14.5)
[2025-10-05 06:00] VITALS: BP 94/57; PULSE 69; RESP 15; TEMP 97.1; O2SAT 94
[2025-10-05 06:06] LABS: CREATININE 0.85 MG/DL (0.40-0.90); TOTAL CARBON DIOXIDE 29.2 MMOL/L (24-32); eCRCL 78 ML/MIN; eGFR 74 ML/MIN
[2025-10-05 07:52] VITALS: BP 104/65
[2025-10-05 07:53] VITALS: RESP 16; O2SAT 95
[2025-10-05 10:00] VITALS: BP 95/65; PULSE 70; RESP 16; TEMP 97.9; O2SAT 94
[2025-10-05] MEDS ORDERED: SACU1TAB PO (11:45)
[2025-10-05] MEDS ORDERED: AMOX-580 PO (11:45)
[2025-10-05] MEDS ORDERED: SPIR25TA5 PO (11:45)
--- NOTE | 2025-10-05 19:01 | DISCHARGE SUMMARY ---
Discharge Summary Providers to ~ no new complaint today asking to be discharged home Discharge Summary Assessment Colonic diverticulitis HFrEF, ejection fraction of 20% Ischemic stroke Embolus in left ventricle, on eliquis Dilated cardiomyopathy Supraventricular tachycardia Admission Diagnosis: Diverticulitis Admission Diagnosis Comment: Colonic diverticulitis HFrEF, ejection fraction of 20% Ischemic stroke Embolus in left ventricle, on eliquis Dilated cardiomyopathy Supraventricular tachycardia Hospital Course DATE OF ADMISSION: October 02, 2025 DATE OF DISCHARGE: October 05, 2025 Discharge Diagnosis\Comment: Colonic diverticulitis HFrEF, ejection fraction of 20% Ischemic stroke Embolus in left ventricle, on eliquis Dilated cardiomyopathy Supraventricular tachycardia Operations\Procedures: Non Consultants: General surgeon Complications: Non Condition on DC: Stable Discharge Summary: This is a 63 years old white male with history of multiple medical problems including anemia hemoglobin 10.3, CHF ejection fraction 55% January 08, history of hypertension, dyslipidemia, seizure disorder asthma, presented today to emergency department chief complaint cough shortness of breath X1 WEEK WITH INCREASING SOB, AND WEAKNESS. PATIENT HAS LOST WEIGHT FROM POOR, APPETITE. +NAUSEA, BROWN COLORED SPUTUM. HX ASTHMA, SZ emergency department patient was evaluated by medical provider, was diagnosed with pneumonia pleural effusion hypokalemia, started on IV antibiotics, and decision was made to admit patient for further evaluation treatment. 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 Patient was extensively evaluated treated today she is feeling fine asking to be discharged home she will be discharged in stable condition, medication reconciled, follow-up PCP Cardiology in today, today on physical exam Vital signs, stable ,afebrile. Pulse Oximetry reflects adequate oxygenation. General: well developed, well nourished. Awake , alert, and oriented x4, resting comfortably in the bed, in no acute distress . Skin: Warm, dry, no pallor, no rash or petechiae. HEENT: Atraumatic, normocephalic, EOMI, anicteric sclera B; pink conjunctiva; PERRLA, normal oropharynx, moist oral and nasal mucosa. Tympanic membrane , nose , throat clear. Neck: Trachea midline. Supple, full range of motion, no JVD, bruit , hepatojugular reflex , lymphadenopathy or masses, or other lesions Cardiac: Regular rhythm, regular rate no murmurs, rubs, or gallops. Normal S1 and S2, no S3 noticed. PMI is normal. Respiratory: Equal breath sounds bilaterally, no tachypnea; lungs clear to auscultation bilaterally, no wheezing ,rub or rales, or crackles. Chest wall is symmetric and without deformity. No signs of trauma. Chest wall is nontender. No signs of respiratory distress. Resonance is normal upon percussion bilaterally. Gastrointestinal: Abdomen symmetric, non-distended, soft, non-tender, normal bowel sounds x4 quadrant, normoactive, no hepatosplenomegaly , no masses , no bruit, no flank pain bilaterally. No voluntary guarding, rebound, or rigidity. No tenderness to percussion. No pulsatile masses. Equal femoral pulses. No Spicer's sign or McBurney point tenderness. Back; no CVA tenderness bilaterally, no deformities. Neck and back are without deformity as well. No tenderness noted on palpation of the spinous processes. Spinous processes are midline. Cervical, thoracic, and lumbar paraspinal muscles are not tender and are without spasm. Musculoskeletal: Extremities, normal range of motion, non-tender, muscle strength 5/5 x 4. Negative Homans signs bilaterally on lower extremity. Distal pulses full symmetrical, no clubbing, cyanosis , edema. Neurological: Speech is clear, alert, and oriented x 4. No motor or sensory deficit, deep tendon reflexes normal, cerebellar intact. Cranial nerves II-XII intact. Psych: Alert and or appropriate, normal affect. Vascular: Good distal pulses, which are equal x4; capillary refill less than 2 seconds. Lymphatic, no lymphadenopathy. *Problems/Diagnosis: (1) Cerebrovascular accident Status: Acute (2) Left ventricular thrombus (3) Chronic systolic heart failure Status: Acute (4) Diverticulitis of colon with perforation Status: Acute Total Time Spent on D/C: > 30 Minutes Date of Service: Oct 05, 2025 Billing Provider: LAY GARCIA MD Common Visit Codes: 27404-DDW/OBS DISCH DAY >30min LAY GARCIA MD Oct 05, 2025 19:01
== END 2025-10-05 13:40 | disposition home or self-care (01) | DRG 391 ==
LOC: ER 19:07 → ED HOLD 23:41 → ORTHO 4S 10-03 07:25
PROVIDERS: ADMIT Internal Medicine Pulmonary Disease; ATTEND Family Medicine
PROC: BW211ZZ Computerized Tomography (CT Scan) of Abdomen and Pelvis using Low Osmolar Contrast (ICD-10-PCS; principal; 2025-10-02)
DX: K57.20 Diverticulitis of large intestine with perforation and abscess without bleeding (principal); J18.9 Pneumonia, unspecified organism; R18.8 Other ascites; I42.0 Dilated cardiomyopathy; I50.22 Chronic systolic (congestive) heart failure; I47.10 Supraventricular tachycardia, unspecified; E87.6 Hypokalemia; I11.0 Hypertensive heart disease with heart failure; G40.909 Epilepsy, unspecified, not intractable, without status epilepticus; E78.5 Hyperlipidemia, unspecified; Z82.3 Family history of stroke; Z82.49 Family history of ischemic heart disease and other diseases of the circulatory system; Z80.0 Family history of malignant neoplasm of digestive organs; Z86.73 Personal history of transient ischemic attack (TIA), and cerebral infarction without residual deficits
CPT/HCPCS: 36415; 74177; 80048; 80053; 80061; 80305; 80320; 81001; 81025; 83036; 83605; 83690; 83735; 83880; 84100; 84145; 85025; 85610; 85730; 87040; 87081; 93005; 99285; G0378; J2543; J7030; Q9967

== ENCOUNTER 2025-10-12 20:35 | Emergency (ER) | payer BC ==
[~2025-10-12] VITALS: Ht 165.1 cm; Wt 72.7 kg
[~2025-10-12 20:35] MED LIST changes: +AMIO200T76 PO; +AMOX-580 PO; -ASPI-1071 PO; +ATOR20TA PO; -ATOR20TA66 PO; +CARV3.122 PO; -LOSA25TA41 PO; +SACU1TAB PO; +SPIR25TA5 PO
--- NOTE | 2025-10-12 20:46 | ELECTROCARDIOGRAPH REPORT ---
[facility] Test Date: 2025-10-12 Test Time: 20:44:32 Pat Name: DIANE REYES Department: [facility] Patient ID: [id number] Room: Gender: F Transformation Lead: : 1985 Requested By: RENEE PATEL Order Number: [id number] Reading MD: Dr. Gil Devi Measurements Intervals Shirley Rate: 80 P: 52 WA: 176 QRS: 42 QRSD: 201 T: -7 QT: 453 QTc: 523 Interpretive Statements Sinus rhythm IVCD, consider atypical LBBB Electronically Signed On 10-14-2025 11:18:[address] Gil Devi Please click the below link to view image of tracing.
[2025-10-12 20:54] LABS: MEAN PLATELET VOLUME 9.4 FL (7.4-10.4); RED CELL DISTRIBUTION WIDTH 13.0 % (11.5-14.5)
--- NOTE | 2025-10-12 21:06 | RADIOLOGY REPORT ---
CHEST RADIOGRAPH INDICATION: CP TECHNIQUE: Single frontal view of the chest was obtained COMPARISON: DI CHEST,SINGLE VIEW on DOS: 09/22/25, DI CHEST,SINGLE VIEW on DOS: 07/13/25, DI CHEST,SINGLE VIEW on DOS: 07/11/25 FINDINGS: Lines and Tubes: None Lungs: No focal consolidation. Pleural effusion. No pneumothorax. Cardiomediastinal contours: Unremarkable Bones: No acute osseous abnormality. IMPRESSION: No evidence of acute cardiopulmonary disease.
[2025-10-12 21:14] VITALS: BP 103/72; PULSE 74; RESP 16; TEMP 98; O2SAT 98
[2025-10-12 21:16] LABS: CREATININE 0.81 MG/DL (0.40-0.90); PRO BRAIN NATRIURETIC PEPTIDE 2258 PG/ML (0-125); TOTAL CARBON DIOXIDE 29.9 MMOL/L (24-32); eGFR 78 ML/MIN
--- NOTE | 2025-10-13 00:24 | Physician Documentation ---
History of Present Illness ~ Chief Complaint: Hypertension Stated Complaint: SOB AND HTN CHEST WALL PAIN Time Seen by MD: 21:39 OK to notify your PCP?: Yes Primary Medical Doctor: [facility] Source: patient Mode of Arrival: POV Exam Limitations: no limitations HPI Patient reports that she has a history of congestive heart failure and reports that she has been having higher than normal blood pressures for her. She reports that her blood pressure is normally low but when she checked it at home it was in the 130 systolic and this worried her. She denies any bloody nose, severe headache, chest pain or shortness of breath. Her social science teacher is Dr. López and she is on several blood pressure medications and has been taking as prescribed. Medication Reconciliation Allergies: Coded Allergies: No Known Allergies (Unverified , 10/02/25) Scheduled Amiodarone Hcl (Cordarone), 1 TAB PO DAILY, (Reported) Amox Tr/Potassium Clavulanate 875/125 MG (Augmentin 875/125 MG), 1 TAB PO BID Apixaban (Eliquis), 1 TAB PO BID, (Reported) Atorvastatin Calcium* (Lipitor*), 1 TAB PO DAILY, (Reported) Carvedilol (Carvedilol), 1 TAB PO BID, (Reported) Empagliflozin (Jardiance), 1 TAB PO DAILY, (Reported) Multivitamin (Multi Vitamin Daily), 1 TAB PO DAILY, (Reported) Sacubitril/Valsartan (Entresto 24 mg-26 mg Tablet), 1 TAB PO DAILY Spironolactone (Spironolactone), 1 TAB PO DAILY Scheduled PRN Hydroxyzine Hcl* (Atarax*), 1 TAB PO Q6H PRN for for anxiety/agitation, (Reported) Past Medical History Past Medical History: No Pertinent History, CVA/TIA/Stroke, Congestive Heart Failure Past Surgical History: noncontributory Patient History: Cardiomyopathy Paternal grandfather FH: CVA (cerebrovascular accident) Maternal grandmother Paternal grandmother (x 3) FH: colon cancer Maternal grandmother FH: heart disease FH: hypertension Paternal grandmother Smoking Status: Former smoker Review of Systems All Other Systems at this time: Reviewed and Negative Physical Exam Vital Signs: RN Vital Signs have been reviewed: Yes, Temperature: 98.0, Heart Rate: 74, Respiratory Rate: 16, BP: 103/72, Pulse Oximetry: 98, Weight: 72.700 Oxygen Flow Rate: 0 Pulse Oximetry Reflects: adequate oxygenation Physical Exam General: Alert, no apparent distress. HEENT: PERRL, EOMI, no injection, moist mucous membranes. Neck: Full range of motion. Respiratory: Lungs clear, no respiratory distress. Chest: No accessory muscle use. Cardiovascular: Regular rate and rhythm, no murmurs. Gastrointestinal: Soft, nontender, nondistended. Bowels sounds present. Extremities: Normal range of motion, no deformity. Neurologic: Oriented x4. Psychiatric: Normal mood and affect. Skin: Normal color, warm and dry. No edema, no ecchymosis. Progress Results/Orders Reviewed/noted all lab results: Yes Results/Orders Vital Signs 10/12/25 21:14 Temp 98.0 Pulse 74 Resp 16 B/P (MAP) 103/72 Pulse Ox 98 O2 Flow Rate 0 Laboratory Tests Test 10/12/25 20:45 10/12/25 22:48 White Blood Count 9.6 Red Blood Count 5.37 Hemoglobin 15.1 Hematocrit 46.0 H Mean Corpuscular Volume 85.8 Mean Corpuscular Hemoglobin 28.1 Mean Corpuscular Hemoglobin Concent 32.8 L Red Cell Distribution Width 13.0 Platelet Count 327 Mean Platelet Volume 9.4 Neutrophils (%) (Auto) 61.3 Lymphocytes (%) (Auto) 28.8 Monocytes (%) (Auto) 6.6 Eosinophils (%) (Auto) 2.4 Basophils (%) (Auto) 0.9 Neutrophils # (Auto) 5.9 Lymphocytes # (Auto) 2.8 Monocytes # (Auto) 0.6 Eosinophils # (Auto) 0.2 Basophils # (Auto) 0.1 CBC Comment Sodium Level 140 Potassium Level 3.9 Chloride Level 104 Carbon Dioxide Level 29.9 Anion Gap 6 L Blood Urea Nitrogen 15 Creatinine 0.81 Estimated GFR/1.73 m2 78 BUN/Creatinine Ratio 18.5 Glucose Level 121 H Calcium Level 9.5 Troponin I High Sensitivity 10 11 Pro-B-Type Natriuretic Peptide 2258 H Albumin 3.6 Chemistry Comments Troponin I High Sens Percent Delta 10 Troponin I Hi Sens Absolute Change 1 EKG/XRAY/CT/US/VASC/MRI EKG : Additional Comment Electrocardiogram: as interpreted by me; normal sinus rhythm, left bundle branch block, intraventricular conduction delay unchanged from previous EKG, no pre- excitation pattern. Rate: 80 Chest X-Ray : Additional Comments Chest x-ray: as interpreted by me; no large effusion, no large infiltrate, normal mediastinum. Heart Score: Heart Score Response (Comments) Value History N/A 0 EKG Repolarization Disturb 1 Age <45 0 Risk Factors 1 or 2 risk factors 1 Troponin Normal limit 0 Total 2 Medical Decision Making Additional information obtaine: old records Findings Reports for hypertension with her systolic in the 130s at home. She denies having any symptoms attributed to her hypertension but wants to make sure there heart is okay as she does have a history of CHF and is on multiple blood pressure medications. Her social science teacher is Dr. López. Her EKG shows intraventricular conduction delay, atypical left bundle branch block which is unchanged from previous EKG on 10/03/2025. Labs show elevated proBNP which is similar to previous trends earlier this month. She denies having any shortness of breath, crease leg edema or other signs of CHF exacerbation. The patient is requesting to be discharged home and does not want to be admitted for further cardiac workup. Troponins are negative. Chest x-rays unremarkable. Differential Dx:Considerations: Include CHF, Include HTN, essential, Include HTN, encephalopathy, Include pulmonary edema Additional Information CHF exacerbation, myocardial infarction. Malignant hypertension Departure Disposition: HOME / SELF CARE / HOMELESS Impression: Primary Impression: Benign hypertension Condition: Stable Discharge Instructions: Hypertension, Adult Additional Instructions: Continue taking your medication as prescribed. As discussed your cardiac workup today was unremarkable. Return back here for any new or worsening symptoms. Follow up with a social science teacher as scheduled. Referrals: NO PRIMARY CARE PROVIDER (PCP) Education Educated: Patient Educated regarding: diagnosis, treatment, prognosis, need for follow up Additional Comment Medical Screen Exam This patient recieved a medical screening examination. After reviewing the individual's medical complaints with presenting symptoms and performing an appropriate physical examination, it was determined that no immediate life- threatening emergency medical condition is present. This individual is also not a women having contractions. Signature Scribe Signature: . Attestation: Scribed for Margaux Sloan by Margaux Rodney NP . 10/13/25 02:04 Parts of this note were created using [employer] voice recognition software program. While efforts were made to correct any mistakes made by this voice recognition software program, nonsensical phrases may remain in this note. In addition, there may be errors and syntax, grammar, content and spelling. MARGAUX SLOAN [facility] Oct 13, 2025 00:24
== END 2025-10-13 02:32 | disposition home or self-care (01) ==
LOC: ER 20:36
DX: I11.0 Hypertensive heart disease with heart failure (principal); I50.9 Heart failure, unspecified; Z79.899 Other long term (current) drug therapy
CPT/HCPCS: 36415; 71045; 80048; 83880; 84484; 85025; 93005; 99285